=== PATIENT | male | born 1985 | race Caucasian/White ===

== ENCOUNTER 2020-02-06 18:09 | Emergency (ER) | payer OTHER, SELFPAY ==
[2020-02-06] VITALS (14 sets, daily range): BP systolic 139–159; BP diastolic 95–119; PULSE 79–106; RESP 16–28; TEMP 36.7; O2SAT 97–100
--- NOTE | 2020-02-06 18:00 | RT.EKG_ITS ---
APPROVED REPORT Exam: Resting ECG Patient Location: E HR:80 bpm ECG Measurements Heart Rate 80 AXIS NC 176 P 20 QRSd 69 QRS 24 QT 348 T 30 QTc 402 <Conclusion> Sinus rhythm...normal P axis, V-rate 60- 99. No acute ST elevation or depression.
--- NOTE | 2020-02-06 18:22 | W.ED.GENAD ---
Discharge Plan Disposition Patient Disposition: HOME Condition: Stable Discharge Details Chief Complaint: DrugWithdr Clinical Impression: Opioid withdrawal Primary Care Provider: Omega Garcia ED Provider: Kerri Smith Home Meds and New Rx's Prescriptions: New clonidine HCl 0.2 mg tablet 0.2 mg PO TID PRN (Reason: withdrawal symptoms) Qty: 10 RF: 0 Continued valacyclovir 500 mg tablet 500 mg PO BID PRNRF: 0 buprenorphine-naloxone 12-3 mg film 1 film BC Q24H Qty: 28 RF: 0 buprenorphine-naloxone 2-0.5 mg film 1 film BC DAILY Qty: 28 RF: 0 sertraline [Zoloft] 100 mg tablet 150 mg PO DAILY Qty: 135 RF: 4 Discharge Instructions Instructions: Opioid Withdrawal (ED) Additional Instructions: Call your primary care doctor tomorrow for follow-up for direction regarding management of your Suboxone. You may need to start at a lower dose of your Suboxone to not induce further withdrawal symptoms. You are given a prescription for clonidine which can help reduce withdrawal symptoms. Do not take this while you are taking the Suboxone. Follow-up with your scheduled appointment with your primary care doctor on Friday. Return to the emergency department if you develop any worsening or new concerning symptoms. Stand Alone Forms: Work Release Discharge Data Discharge Physician: Kerri Smith Medical Decision Making <Kerri Smith DO - Last Filed: 02/06/20 21:24> 1830 -- 35-year-old male with a history of IV drug use who has been on Suboxone for the past 7 years who relapsed on heroin 3 weeks ago with last dose of Suboxone at that time presents for withdrawal symptoms. Last use of heroin 2 days ago. Withdrawal symptoms worsened today after a dose of Suboxone. Hypertensive. Remainder vitals within normal limits. Patient appears restless. Screening labs obtained and unremarkable. Patient given 1 mg of Ativan without relief. 1930 -- Given another additional 1 mg of Ativan without relief. On reevaluation, patient requested morphine. Discussed with patient that this is not the standard of care for withdrawal symptoms and will give another dose of Ativan and clonidine. Patient is requesting to leave as he would rather go home today with withdrawal symptoms. We will send with 3 tabs of clonidine as well as prescription. He has an appointment with his primary care doctor on Friday. He is advised to discuss with his primary care doctor tomorrow regarding how to safely restart Suboxone to prevent further withdrawal symptoms. It was discussed that he likely needs to start on a lower dose to prevent worsening withdrawal symptoms. Medical Records Medical records reviewed: Yes I reviewed the patient's medical records. <René Inman, DO - Last Filed: 02/06/20 22:27> After the patient was discharged the mother did contact the emergency department noted that patient was still fairly jittery. She asked if he could take any additional clonidine and at this time the recommendation is that he is taking as much as would be appropriate currently. I did offer that the patient and mother be contacted by assistant women's rowing coach and the mother was very agreeable to this. I have contacted assistant women's rowing coach and they will be contacting the mother shortly. We discussed the pertinent of red flags that would indicate need for immediate return. HPI <Kerri Smith, - Last Filed: 02/06/20 21:24> General Mode of arrival: ambulatory. Date/Time Provider Initiated Documentation: 02/06/20 18:18. Limitations to Documentation: no limitations. Information obtained by: patient. HPI Narrative: Pt is a 35yo M with a history of IV drug abuse, on Suboxone for the past 7 years with recent relapse on heroin who presents to the ED with a complaint of withdrawal symptoms. Patient states he started reusing heroin again 3 weeks ago and this was at the time Related Data Home Medications Medication Instructions Recorded Confirmed valacyclovir 500 mg tablet 500 mg PO BID PRN tab-cap 03/16/19 02/06/20 sertraline 100 mg tablet 150 mg PO DAILY #135 tab-cap 08/30/19 02/06/20 buprenorphine 12 mg-naloxone 3 mg 1 film BC Q24H #28 each 01/11/20 02/06/20 sublingual film buprenorphine 2 mg-naloxone 0.5 mg 1 film BC DAILY #28 each 01/11/20 02/06/20 sublingual film clonidine HCl 0.2 mg PO TID PRN #10 tab 02/06/20 Previous Rx's Medication Instructions Recorded sertraline 100 mg tablet 150 mg PO DAILY #135 tab-cap 08/30/19 buprenorphine 12 mg-naloxone 3 mg 1 film BC Q24H #28 each 01/11/20 sublingual film buprenorphine 2 mg-naloxone 0.5 mg 1 film BC DAILY #28 each 01/11/20 sublingual film clonidine HCl 0.2 mg PO TID PRN #10 tab 02/06/20 Allergies Allergy/AdvReac Type Severity Reaction Status Date / Time No Known Allergies Allergy Verified 09/21/19 10:50 General Stated Complaint: DrugWithdr [place]: 3 Review of Systems <Kerri Smith DO - Last Filed: 02/06/20 21:24> All systems reviewed & are unremarkable except as noted in HPI and below Constitutional Constitutional: Reports as per HPI, Denies chills and Denies fever(s) Eyes Eyes: Denies blurry vision ENT Ears, Nose, Mouth, and Throat: Denies dizziness, Denies sore throat and Denies throat swelling Cardiovascular Cardiovascular: Denies chest pain and Denies dyspnea Respiratory Respiratory: Denies cough and Denies dyspnea Gastrointestinal Gastrointestinal: Denies abdominal pain, Reports diarrhea and Denies vomiting Genitourinary Genitourinary: Denies hematuria and Denies dysuria Musculoskeletal Musculoskeletal: Denies back pain and Denies numbness Integumentary/Breasts Skin/Breast: Denies lesions and Denies rash Neurologic Neurologic: Denies dizziness, Denies localized weakness, Denies numbness and Reports restless legs Allergic/Immunologic Allergic/Immunologic: Denies throat swelling PFSH <Kerri Smith DO - Last Filed: 02/06/20 21:24> Medical History (Updated 02/06/20 @ 19:46 by Kerri Smith DO) Back muscle spasm (Acute) IV drug abuse (Acute) Low back pain (Acute) Family History Mother Alcohol abuse Father Alcohol abuse Essential hypertension Depression Sister Asthma Brother No problems noted. Grandfather Hyperlipidemia Neoplasm Social History Smoking/Tobacco Use Status: Current every day Tobacco Type: cigarettes Tobacco: How many years used: 15 Alcohol Intake: current Alcohol Intake frequency: a few times a week Alcohol type: beer Drug use: Occasionally Substance use type: heroin Details: 5 bags of heroin today @ 1630 Do you feel safe in your relationship?: Yes Exam <Kerri Smith DO - Last Filed: 02/06/20 21:24> Const General: cooperative and other (restless) Orientation: alert, awake and oriented x3 HENMT Head: normal to inspection Face and sinus: normal facial exam Eyes General: appearance normal, both eyes and all related structures EOM: EOM intact bilaterally Neck Neck: normal visual inspection and No submandibular swelling Lymphatic: no lymphadenopathy noted Chest Chest: normal inspection of the chest and no tenderness Resp Effort & Inspection: normal respiratory effort and able to speak in complete sentences Auscultation: clear to auscultation bilaterally Cardio Rate: regular rate Rhythm: regular rhythm GI Inspection: normal to inspection Palpation: soft, not firm, not rigid and nontender Auscultation: normal bowel sounds Skin General skin exam: no rashes or lesions noted Neuro General: patient alert, patient awake and patient oriented x3 Cognition: normal cognition Speech: speech normal Motor: muscle tone normal throughout Sensory Exam: no sensory deficits noted Extrem General: normal to inspection, full ROM, capillary refill normal, no calf tenderness bilaterally and no edema Psych Appearance: grossly normal Mental Status: mental status grossly normal Speech and Movement: speech and movement normal Affect: normal affect Course <Kerri Smith, DO - Last Filed: 02/06/20 21:24> Vital Signs Vital signs: Vital Signs Temperature 98.1 F 02/06/20 18:13 Pulse 86 02/06/20 18:13 Respiratory Rate 18 02/06/20 18:13 Blood Pressure 159/103 H 02/06/20 18:13 Pulse Oximetry 100 02/06/20 18:13 Temperature 98.1 F 02/06/20 18:13 Temperature Source Skin 02/06/20 18:13 Pulse 86 02/06/20 18:13 Respiratory Rate 18 02/06/20 18:13 Blood Pressure 159/103 H 02/06/20 18:13 Blood Pressure Position Supine 02/06/20 18:13 Pulse Oximetry 100 02/06/20 18:13 Oxygen Delivery Method Room Air 02/06/20 18:13 Oxygen Flow Rate 0 02/06/20 18:13 Pain Level 6 02/06/20 18:13
[2020-02-06] MEDS: Normal Saline 1,000 ML 1000 ML IV (18:36)
[2020-02-06] MEDS: Normal Saline Flush 10 ML SYR IVP ×2 (18:36→19:53)
[2020-02-06 18:50] LABS: ALT 70 U/L (16-63); AST 44 U/L (15-37); Abs Immature Grans 0.01 k/cumm (0.0-0.09); Absolute Basophil Count 0.01 k/cumm (0.0-0.2); Absolute Eosinophil Count 0.05 k/cumm (0.0-0.7); Absolute Lymphocyte Count 1.25 k/cumm (1.2-3.4); Absolute Monocyte Count 0.42 k/cumm (0.11-0.7); Absolute Neutrophil Count 6.26 k/cumm (1.2-6.7); Albumin 4.3 g/dL (3.4-5.0); Alkaline Phosphatase 90 U/L (46-116); Anion Gap 10.6 mmol/L (3-11); BUN 11 mg/dL (7-18); Basophils % 0.1; Bilirubin, Total 0.5 mg/dL (0.2-1.0); CO2 26.4 mmol/L (21.0-32.0); CREATININE 1.01 mg/dL (0.70-1.30); Calcium 9.5 mg/dL (8.5-10.1); Chloride 102 mmol/L (98-107); Eosinophils % 0.6; Glucose 110 mg/dL (74-106); HCT 44.1 % (40.0-50.0); HGB 15.9 g/dL (13.5-17.5); Immature Grans % 0.1 %; Lymphocytes % 15.6; Magnesium 2.1 mg/dL (1.8-2.4); Mean Corp. HGB Concentration 36.1 g/dL (32.0-36.0); Mean Corpuscular Hemoglobin 30.3 pg (27.0-33.0); Mean Platelet Volume 10.1 fL (8.0-11.0); Monocytes % 5.3; Neutrophils % 78.3; Platelet Count 235 x1000/uL (130-400); RBC 5.25 m/cumm (4.50-6.00); Sodium 139 mmol/L (136-145); Total Protein 8.1 g/dL (6.4-8.2)
[2020-02-06 18:51] LABS: Troponin I < 0.05 ng/mL (<0.06)
[2020-02-06] MEDS: LORazepam 2 MG/ML VIAL 1 MG IVP ×3 (18:51→19:54)
[2020-02-06] MEDS: cloNIDine 0.1 MG TAB 0.2 MG PO (19:54)
[2020-02-06 19:59] LABS: *AMPHETAMINES SCREEN URINE Negative (Negative); *BARBITURATES SCREEN URINE Negative (Negative); *BENZODIAZEPINES SCREEN URINE Negative (Negative); Cannabinoids THC Negative (Negative); Cocaine Screen,Urine Negative (Negative); METHADONE URINE SCREEN Negative (Negative); OPIATES URINE SCREEN POSITIVE (Negative)
[2020-02-06 20:01] LABS: Tricyclic Antidepressants Negative (Negative)
[2020-02-06] MEDS: cloNIDine 0.1 MG TAB 0.6 MG PO (20:25)
== END 2020-02-06 20:22 | disposition home or self-care (01) ==
PROVIDERS: Emergency Provider Physician Assistant; PCP Family Medicine
DX: F11.23 Opioid dependence with withdrawal (principal); R45.1 Restlessness and agitation; R03.0 Elevated blood-pressure reading, without diagnosis of hypertension
CPT/HCPCS: 36415; 80053; 80307; 93005; 96361; 96374; 96376; 99284; 83735; 84484; 85025; 93010; 99285; J2060

== ENCOUNTER 2021-01-14 11:38 | Emergency (ER) | payer SELFPAY ==
[2021-01-14 11:46] VITALS: BP 145/83; PULSE 83; RESP 18; TEMP 36; O2SAT 96
--- NOTE | 2021-01-14 11:52 | ED.GENADUL_ITS ---
Discharge Plan Disposition Patient Disposition: HOME Condition: Improving Discharge Details Clinical Impression: Cellulitis of shaft of penis Primary Care Provider: Didier Garcia ED Provider: Rigoberto Eric Home Meds and New Rx's Prescriptions: New doxycycline hyclate 100 mg capsule 100 mg PO BID 10 Days Qty: 20 RF: 0 Continued valacyclovir 500 mg tablet 500 mg PO BID PRNRF: 0 buprenorphine-naloxone 12-3 mg film 1 film BC Q24H Qty: 28 RF: 0 buprenorphine-naloxone 8-2 mg film 1 film SL DAILY Qty: 28 RF: 0 sertraline [Zoloft] 100 mg tablet 150 mg PO DAILY Qty: 135 RF: 4 Discharge Instructions Instructions: Cellulitis (ED) Additional Instructions: Please take the doxycycline as prescribed for its entire course. This may make you sensitive to the sun. Continue your routine medications. Return to the emergency department for any acute concerns. Medical Decision Making 36-year-old male who is sexually active, last sexual contact 3 weeks ago. Yesterday noticed erythema at the base of his penis. No sores or lesions, normal urination, no systemic signs or symptoms of illness. Vital signs are unremarkable. His exam does reveal discrete erythema at the base of the penile meatus. Differential diagnosis would include balanitis due to yeast infection although I feel his reported sexual encounter is too distant for this to be most likely. Must consider GC or chlamydia, as well as simple cellulitis. A urine was sent for GC and chlamydia. He was empirically treated with 250 mg of ceftriaxone IM and I will place him on 10 days of doxycycline. He understands return precautions to the ER and is stable for discharge to home. HPI General Mode of arrival: ambulatory . Date/Time Provider Initiated Documentation: 01/14/21 11:46 . Limitations to Documentation: no limitations . Information obtained by: patient . History of Present Illness 36 year old M presents to the emergency department with the chief complaint of Redness at head of penis, described as mild, Quality is described as constant, and is localized to the genitals. Patient started experiencing this day(s) and it has been constant. No relieving factors improve symptom(s), No exacerbating factors reported . Patient notes denies fever/chills. Patient did receive the following treatments prior to arrival, none Related Data Home Medications Medication Instructions Recorded Confirmed valacyclovir 500 mg tablet 500 mg PO BID PRN tab-cap 03/16/19 01/14/21 sertraline 100 mg tablet 150 mg PO DAILY #135 tab-cap 08/30/19 01/14/21 buprenorphine 12 mg-naloxone 3 mg 1 film BC Q24H #28 ea 01/09/21 01/14/21 sublingual film buprenorphine 8 mg-naloxone 2 mg 1 film SL DAILY #28 ea 01/09/21 01/14/21 sublingual film doxycycline hyclate 100 mg PO BID 10 Days #20 cap 01/14/21 Previous Rx's Medication Instructions Recorded sertraline 100 mg tablet 150 mg PO DAILY #135 tab-cap 08/30/19 buprenorphine 12 mg-naloxone 3 mg 1 film BC Q24H #28 ea 01/09/21 sublingual film buprenorphine 8 mg-naloxone 2 mg 1 film SL DAILY #28 ea 01/09/21 sublingual film doxycycline hyclate 100 mg PO BID 10 Days #20 cap 01/14/21 Allergies Allergy/AdvReac Type Severity Reaction Status Date / Time No Known Allergies Allergy Verified 01/14/21 11:49 General Stated Complaint: Urinary [place]: 4 Review of Systems Narrative: No fever, chills, normal urine PFSH Medical History Back muscle spasm IV drug abuse Low back pain Family History Mother Alcohol abuse Father Alcohol abuse Essential hypertension Depression Sister Asthma Brother No problems noted. Grandfather Hyperlipidemia Neoplasm Social History Smoking/Tobacco Use Status: Current every day Tobacco Type: cigarettes Tobacco: How many years used: 15 Smoking risk assessment performed?: Yes Alcohol Intake: current Alcohol Intake frequency: a few times a week Alcohol type: beer Drug use: Occasionally Substance use type: marijuana and heroin Details: 5 bags of heroin today @ 1630 Do you feel safe at home: Yes Do you feel safe in your relationship?: Yes Exam Narrative Exam Narrative: GEN: awake, alert, oriented 3. Pleasant, well groomed, interactive. HEAD: Normocephalic, atraumatic ENT: Mucous membranes moist, External ear exam unremarkable EYES: PERRL, EOMI NECK: Full ROM, no ARNOLD, no menigismus CHEST/RESP: Nontender, no respiratory distress ABDOMEN: Soft, nontender, no mass. +Bowel sounds : Circumcised, discrete erythema at the base of the penile meatus. No lesions, distended testes bilaterally. EXT: Full ROM, no edema, no rash Neuro: Grossly normal neurologic exam, conversant, interactive. Psych: Speech fluent, thoughts congruent, affect normal Course Vital Signs Vital signs: Vital Signs Temperature 36 C L 01/14/21 11:46 Pulse 83 01/14/21 11:46 Respiratory Rate 18 01/14/21 11:46 Blood Pressure 145/83 H 01/14/21 11:46 Pulse Oximetry 96 01/14/21 11:46 Temperature 36 C L 01/14/21 11:46 Temperature Source Temporal Artery Scan 01/14/21 11:46 Pulse 83 01/14/21 11:46 Respiratory Rate 18 01/14/21 11:46 Respiratory Effort Non-Labored 01/14/21 11:50 Blood Pressure 145/83 H 01/14/21 11:46 Blood Pressure Position Sitting 01/14/21 11:46 Pulse Oximetry 96 01/14/21 11:46 Oxygen Delivery Method Room Air 01/14/21 11:46 Oxygen Flow Rate 0 01/14/21 11:46 Pain Level 2 01/14/21 11:46
[2021-01-14] MEDS: cefTRIAXone 250 MG VIAL IM (12:18)
[2021-01-17 16:30] LABS: Chlamydia Result Negative (Negative); GC Result Negative (Negative)
== END 2021-01-14 12:50 | disposition home or self-care (01) ==
LOC: ER 12:16
PROVIDERS: Emergency Provider Emergency Medicine; PCP Family Medicine
DX: N48.22 Cellulitis of corpus cavernosum and penis (principal)
CPT/HCPCS: 87491; 87591; 96372; 99284; 99283; J0696

== ENCOUNTER 2021-02-21 23:14 | Emergency (ER) | payer SELFPAY ==
[2021-02-21 23:26] VITALS: BP 180/103; PULSE 105; RESP 18; TEMP 36.9; O2SAT 95
--- NOTE | 2021-02-21 23:26 | W.ED.GENAD ---
Discharge Plan Disposition Patient Disposition: HOME Condition: Stable Discharge Details Clinical Impression: Allergic dermatitis due to poison ni Primary Care Provider: Didier Garcia ED Provider: Kenna Bella Home Meds and New Rx's Prescriptions: New prednisone 10 mg tablet See Rx Instructions .ROUTE .COMPLEX Qty: 31 RF: 0 Continued buprenorphine-naloxone 12-3 mg film 1 film BC Q24H Qty: 28 RF: 0 buprenorphine-naloxone 8-2 mg film 1 film SL DAILY Qty: 28 RF: 0 sertraline [Zoloft] 100 mg tablet 150 mg PO DAILY Qty: 135 RF: 4 Discharge Instructions Instructions: Prednisone (By mouth), Poison Ni (ED) Additional Instructions: Please keep area clean as possible. You may continue with the calamine lotion help with itch. Please take the steroids as prescribed. You are given your dose on here tonight, next dose will be due tomorrow. If you develop fever/chills, worsening rash or other new/worsening symptom please seek care urgently once again. Otherwise, please follow-up with primary care in the next 1 to 2 weeks for reevaluation. Referrals: Didier Garcia [Primary Care Provider] - Discharge Data Discharge Date/Time-TO BE ENTERED AT DEPARTURE: 02/21/21 23:40 Medical Decision Making Patient pleasant 36-year-old gentleman presenting today with chief complaint of poison ni to bilateral lower extremities. Reports he was exposed proximally 4 to 5 days ago. Since then, spreading of the rash. Reports that this is similar to when he has had poison ni exposure historically. He denies any in his groin, abdomen, chest or head. States he did initially have a small patch in the left upper extremity but this is mainly resolved. Describes a very itchy. Denies any fevers or chills. Has been using calamine lotion with minimal success. On exam, patient appears nontoxic. Vital signs are stable. He has scattered circular areas in various stages of healing. Some of these are more purpuric erythematous areas where others appear more classic vesicles. He reports that all of these started as a vesicle that weeks and then turns into more purplish hue. History exam is most consistent with poison ni. Plan to treat as the patient has had progression of symptoms covering a significant portion of bilateral lower extremities, with steroids. He states that he responded well to sort steroids historically. We discussed the side effects of this medication. Will give first dose here iand send rest of his prescription to the pharmacy. Return precautions were discussed. He will otherwise follow-up with primary care in the next 1 to 2 weeks for reevaluation. All questions and concerns were addressed and he is in agreement this plan. Rechecked BP, was initially taken when he was talking with his hands. 136/87, HR 101. HPI General Mode of arrival: ambulatory. Date/Time Provider Initiated Documentation: 02/21/21 23:21. Limitations to Documentation: no limitations. Information obtained by: patient and RN/MD. History of Present Illness 36 year old M presents to the emergency department with the chief complaint of poison ni to bilateral lower extremities, described as mild and similar to prior episodes, with intensity rated at 3. Quality is described as other (itching), and is localized to the left, right and lower extremity. Patient reports no radiation. Patient started experiencing this day(s) and it has been constant (progressively spreading). No relieving factors improve symptom(s), No exacerbating factors reported . Patient notes no other symptoms.; denies chest pain, cough, diaphoresis, fever/chills, malaise, shortness of breath and weakness. Patient did receive the following treatments prior to arrival, other (calamine lotion) Related Data Home Medications Medication Instructions Recorded Confirmed sertraline 100 mg tablet 150 mg PO DAILY #135 tab-cap 02/02/21 02/21/21 buprenorphine 12 mg-naloxone 3 mg 1 film BC Q24H #28 ea 02/06/21 02/21/21 sublingual film buprenorphine 8 mg-naloxone 2 mg 1 film SL DAILY #28 ea 02/06/21 02/21/21 sublingual film prednisone See Rx Instructions .ROUTE 02/21/21 .COMPLEX #31 tab Previous Rx's Medication Instructions Recorded sertraline 100 mg tablet 150 mg PO DAILY #135 tab-cap 02/02/21 buprenorphine 12 mg-naloxone 3 mg 1 film BC Q24H #28 ea 02/06/21 sublingual film buprenorphine 8 mg-naloxone 2 mg 1 film SL DAILY #28 ea 02/06/21 sublingual film prednisone See Rx Instructions .ROUTE 02/21/21 .COMPLEX #31 tab Allergies Allergy/AdvReac Type Severity Reaction Status Date / Time No Known Allergies Allergy Verified 02/06/21 10:34 General [place]: 4 Review of Systems Constitutional Constitutional: Reports as per HPI, Denies chills and Denies fever(s) Musculoskeletal Musculoskeletal: Reports as per HPI Integumentary/Breasts Skin/Breast: Reports as per HPI Neurologic Neurologic: Reports as per HPI, Denies sensory deficit and Denies paresthesias [facility] Medical History Back muscle spasm IV drug abuse Low back pain Family History Mother Alcohol abuse Father Alcohol abuse Essential hypertension Depression Sister Asthma Brother No problems noted. Grandfather Hyperlipidemia Neoplasm Social History Smoking/Tobacco Use Status: Current every day Tobacco Type: cigarettes Tobacco: How many years used: 15 Smoking risk assessment performed?: Yes Alcohol Intake: current Alcohol Intake frequency: a few times a week Alcohol type: beer Drug use: Occasionally Substance use type: marijuana and heroin Do you feel safe at home: Yes Do you feel safe in your relationship?: Yes Exam Const General: cooperative, healthy appearing, comfortable, no acute distress and well developed Nutritional Appearance: average body habitus and well nourished Orientation: alert and awake Resp Effort & Inspection: normal respiratory effort, able to speak in complete sentences and no respiratory distress Cardio Rate: regular rate Rhythm: regular rhythm Skin Rashes: rashes noted Full body images: 1. Dense region of erythematous rash. centrally excoriated and dry. Spreading from this area is circular dry lesions consistent with hx of poison ni. No pain with palpation. 2+ distal pulses, no edema. 2. Scattered areas in various stages. Some are blistered with serosang fluid. Other areas are dry and excoriated. Exam is not consistent with cellulitis or infection. Again, the scattered areas are consistent with hx of poison ni. Neuro General: patient alert and patient awake Cognition: normal cognition Speech: speech normal Gait: normal gait Sensory Exam: no sensory deficits noted Extrem General: abnormal to inspection (rash as above) Psych Appearance: grossly normal and well kempt Mental Status: mental status grossly normal Speech and Movement: speech and movement normal
[2021-02-21 23:35] VITALS: BP 136/87
[2021-02-21] MEDS: predniSONE 20 MG TAB 40 MG PO (23:35)
== END 2021-02-21 23:40 | disposition home or self-care (01) ==
PROVIDERS: Emergency Provider Physician Assistant; PCP Family Medicine
DX: L23.7 Allergic contact dermatitis due to plants, except food (principal)
CPT/HCPCS: 99283; J7512

== ENCOUNTER 2021-05-27 12:45 | Emergency (ER) | payer OTHER, SELFPAY ==
--- NOTE | 2021-05-27 12:48 | W.ED.GENAD ---
Discharge Plan Disposition Patient Disposition: HOME Condition: Stable Discharge Details Clinical Impression: Leg pain Primary Care Provider: Didier Garcia ED Provider: Roberto Collins Home Meds and New Rx's Prescriptions: New sulfamethoxazole-trimethoprim [Bactrim DS] 800-160 mg tablet 1 tab PO BID Qty: 20 RF: 0 Continued methadone 40 mg Tablet,Soluble 40 mg PO DAILY RF: 0 Discharge Instructions Instructions: Leg Pain (ED) Additional Instructions: Bactrim as directed. Rest, elevate, cool and/or warm compresses every 2 hours for 20 minutes. Please take your methadone as directed and stop using illicit drugs. Please follow the instructions given to you by the power and recovery superintendent. I have set you up for an ultrasound tomorrow morning to rule out DVT and have given you a single dose of Lovenox now. Please contact the radiology department at 7:30 AM to set up your appointment, after the appointment you will signed back into the ER for result and treatment if indicated. Please watch for new or worsening symptoms and return to the ER for any concerns. Otherwise I recommend contacting your primary care provider to discuss outpatient reevaluation Discharge Data Discharge Date/Time-TO BE ENTERED AT DEPARTURE: 05/27/21 14:51 Medical Decision Making 36-year-old male presents concerned for potential DVT of left lower extremity. [facility] and is typically on methadone, did not obtain a dose today, did use IV narcotics today. Denies fever, chest pain, shortness of breath, history of DVT or PE. Clinically he appears well, nontoxic, no respiratory distress, no evidence of sepsis. Will obtain CBC, CMP and coags. Concern for cellulitis versus DVT. Unfortunately it is the weekend, I cannot obtain ultrasound this evening but can set him up for 1 tomorrow morning Laboratory values are unremarkable for leukocytosis. Coags PT is 11.6 INR 1.2, APTT 30.1 Discussed work-up with patient. Will give a single dose of p.o. Bactrim now and set the patient up for ultrasound tomorrow morning. After discussing risks versus benefits, will provide a single dose of 1 mg/kg of Lovenox for potential DVT Given his recent relapse, we did have the power and recovery superintendent come talk with the patient as well Standard discharge and return precautions provided. Patient has no additional questions or concerns. This documentation was generated using Dragon dictation system, please disregard any oddities of phrase or misspellings. Medical Records Medical records reviewed: Yes I reviewed the patient's medical records. Lab Data Lab results reviewed: Yes I reviewed the patient's lab results. Labs: Laboratory Tests Range/Units 05/27/21 05/27/21 05/27/21 13:20 13:20 13:20 WBC (4.4-10.8) 10^3/uL 6.83 RBC (4.36-5.78) 10^6/uL 3.97 L Hgb (13.5-17.5) g/dL 11.4 L Hct (40.0-50.0) % 34.3 L MCV (80-95) fL 86.4 MCH (27.0-33.0) pg 28.7 MCHC (32.0-36.0) % 33.2 RDW (11.8-14.1) % 13.0 Plt Count (130-400) 10^3/uL 259 MPV (8.0-11.0) fL 10.0 Immature Gran % 0.3 Neutrophils % 67.0 Lymphocytes % 22.3 Monocytes % 8.1 Eosinophils % 1.9 Basophils % 0.4 Nucleated RBC % % 0 Absolute Neutrophils (1.2-6.7) 10^3/uL 4.58 Absolute Lymphocytes (1.2-3.4) 10^3/uL 1.52 Absolute Monocytes (0.1-0.8) 10^3/uL 0.55 Absolute Eosinophils (0.0-0.7) 10^3/uL 0.13 Absolute Basophils (0.0-0.2) 10^3/uL 0.03 PT (9.3-11.0) sec 11.6 H INR (0.9-1.1) 1.2 H APTT (21.0-27.5) sec 30.1 H Sodium (136-145) mmol/L 142 Potassium (3.5-5.1) mmol/L 4.2 Chloride (98-107) mmol/L 104 Carbon Dioxide (21.0-32.0) mmol/L 34.2 H Anion Gap (3-11) mmol/L 3.8 BUN (7-18) mg/dL 11 Creatinine (0.70-1.30) mg/dL 0.9 Estimated GFR/1.73 m2 (mL/min/1.73m2) >= 60.00 Glucose (74-106) mg/dL 98 Calcium (8.5-10.1) mg/dL 8.6 Total Bilirubin (0.2-1.0) mg/dL 0.6 AST (15-37) U/L 13 L ALT (16-63) U/L 16 Alkaline Phosphatase (46-116) U/L 85 Total Protein (6.4-8.2) g/dL 7.1 Albumin (3.4-5.0) g/dL 3.3 L HPI General Mode of arrival: ambulatory. Date/Time Provider Initiated Documentation: 05/27/21 12:48. Limitations to Documentation: no limitations. Information obtained by: patient. HPI Narrative: This is a 36-year-old male, past medical history of IV drug use, last use over the past 24 hours as well as cocaine, presenting to the ER today complaining of left lower extremity pain and swelling, no injury, concern for potential DVT. He reports he notices symptoms over the past 48 hours or so. Denies fever, history of DVT or PE, chest pain or shortness of breath. Has not taken any medications for his symptoms. Pain is mild at rest, but worse with movement or ambulation. Related Data Home Medications Medication Instructions Recorded Confirmed methadone 40 mg PO DAILY 05/27/21 05/27/21 sulfamethoxazole-trimethoprim 1 tab PO BID #20 tab 05/27/21 [Bactrim DS] Previous Rx's Medication Instructions Recorded sulfamethoxazole-trimethoprim 1 tab PO BID #20 tab 05/27/21 [Bactrim DS] Allergies Allergy/AdvReac Type Severity Reaction Status Date / Time No Known Allergies Allergy Verified 05/27/21 12:52 General [place]: 5 Review of Systems Constitutional Constitutional: Denies fever(s) Cardiovascular Cardiovascular: Denies chest pain and Denies dyspnea Respiratory Respiratory: Denies cough and Denies dyspnea Musculoskeletal Musculoskeletal: Denies arthralgias, Denies numbness, Reports stiffness and Denies tingling Integumentary/Breasts Skin/Breast: Reports erythema Neurologic Neurologic: Denies numbness and Denies tingling [facility] Medical History Back muscle spasm IV drug abuse Low back pain Family History Mother Alcohol abuse Father Alcohol abuse Essential hypertension Depression Sister Asthma Brother No problems noted. Grandfather Hyperlipidemia Neoplasm Social History Smoking/Tobacco Use Status: Current every day Tobacco Type: cigarettes Tobacco: How many years used: 15 Smoking risk assessment performed?: Yes Alcohol Intake: current Alcohol Intake frequency: a few times a week Alcohol type: beer Drug use: Occasionally Substance use type: marijuana, crack/cocaine and heroin Do you feel safe at home: Yes Do you feel safe in your relationship?: Yes Exam Const General: cooperative, comfortable and no acute distress Orientation: alert and awake HENNE Head: normal to inspection, normocephalic and atraumatic Eyes General: appearance normal, both eyes and all related structures Conjunctivae: conjunctivae normal Neck Neck: normal visual inspection, full ROM, trachea midline and supple Resp Effort & Inspection: normal respiratory effort and able to speak in complete sentences Auscultation: clear to auscultation bilaterally Cardio Rate: regular rate Rhythm: regular rhythm Skin Lesions: no lesions Neuro General: patient alert, patient awake, patient oriented x3, moves all extremities and no focal motor deficits Cognition: normal cognition Speech: speech normal Gait: antalgic (Minimally) Sensory Exam: no sensory deficits noted Extrem General: full ROM, capillary refill normal and no calf tenderness Other: Left lower extremity mid to distal tib-fib region, dorsal aspect of the foot with mild 1+ pitting edema, warmth, erythema. Skin is intact. Normal capillary refill and dorsalis pedal pulse. There is no palpable cord. Negative Homans' sign. Psych Appearance: grossly normal Mental Status: mental status grossly normal
[2021-05-27 12:49] VITALS: BP 134/78; PULSE 68; RESP 18; TEMP 37.2; O2SAT 96
--- NOTE | 2021-05-27 13:13 | NUR.NOTE ---
Nursing Note: Request for LLE venous US faxed and received by DI for pain/swelling. Follow up ED to be done tomorrow Nov. 1. Leonie Robertson
[2021-05-27 13:36] LABS: Abs Immature Grans 0.02 10^3/uL (0.0-0.06); Absolute Basophil Count 0.03 10^3/uL (0.0-0.2); Absolute Eosinophil Count 0.13 10^3/uL (0.0-0.7); Absolute Lymphocyte Count 1.52 10^3/uL (1.2-3.4); Absolute Monocyte Count 0.55 10^3/uL (0.1-0.8); Absolute Neutrophil Count 4.58 10^3/uL (1.2-6.7); Basophils % 0.4; Eosinophils % 1.9; HCT 34.3 % (40.0-50.0); HGB 11.4 g/dL (13.5-17.5); Immature Grans % 0.3; Lymphocytes % 22.3; MCH 28.7 pg (27.0-33.0); MCHC 33.2 % (32.0-36.0); MCV 86.4 fL (80-95); Monocytes % 8.1; Nucleated RBC 0 %; Platelet Count 259 10^3/uL (130-400); RBC 3.97 10^6/uL (4.36-5.78); WBC 6.83 10^3/uL (4.4-10.8)
[2021-05-27 13:43] LABS: ALT 16 U/L (16-63); AST 13 U/L (15-37); Albumin 3.3 g/dL (3.4-5.0); Alkaline Phosphatase 85 U/L (46-116); Anion Gap 3.8 mmol/L (3-11); BUN 11 mg/dL (7-18); Bilirubin, Total 0.6 mg/dL (0.2-1.0); CO2 34.2 mmol/L (21.0-32.0); CREATININE 0.9 mg/dL (0.70-1.30); Calcium 8.6 mg/dL (8.5-10.1); Chloride 104 mmol/L (98-107); Glucose 98 mg/dL (74-106); Potassium 4.2 mmol/L (3.5-5.1); Sodium 142 mmol/L (136-145); Total Protein 7.1 g/dL (6.4-8.2)
[2021-05-27 13:52] LABS: INR 1.2 (0.9-1.1); PTT Activated 30.1 sec (21.0-27.5); Prothrombin Time 11.6 sec (9.3-11.0)
[2021-05-27] MEDS: Enoxaparin 80 MG/0.8 ML SYR SC (14:41)
[2021-05-27] MEDS: Sulfameth/Trimeth DS TAB 1 TAB PO (14:41)
== END 2021-05-27 14:51 | disposition home or self-care (01) ==
PROVIDERS: Emergency Provider Physician Assistant; PCP Family Medicine
DX: M79.89 Other specified soft tissue disorders (principal); F11.10 Opioid abuse, uncomplicated; M79.662 Pain in left lower leg
CPT/HCPCS: 36415; 80053; 96372; 99284; 85025; 85610; 85730; J1650

== ENCOUNTER 2021-05-28 11:53 | Emergency (ER) | payer OTHER, SELFPAY ==
--- NOTE | 2021-05-28 12:12 | ED.GENADUL_ITS ---
Discharge Plan Disposition Patient Disposition: HOME Condition: Stable Discharge Details Clinical Impression: Cellulitis of leg, left Primary Care Provider: Didier Garcia ED Provider: Roberto Collins Home Meds and New Rx's Prescriptions: Continued methadone 40 mg Tablet,Soluble 40 mg PO DAILY RF: 0 sulfamethoxazole-trimethoprim [Bactrim DS] 800-160 mg tablet 1 tab PO BID Qty: 20 RF: 0 Discharge Instructions Instructions: Cellulitis (ED) Additional Instructions: Ultrasound is unremarkable for DVT. Rest, elevate, warm compresses every 2 hours for 20 minutes. Bactrim as directed. Compression stockings or Abran wrap as tolerated. Please watch for new or worsening symptoms and return to the ER for any concerns. Otherwise I recommend outpatient follow-up with your primary care provider in the next 3-5 days for recheck. Medical Decision Making 36-year-old gentleman presents to the ER for ultrasound results. Seen yesterday evening by me for DVT versus cellulitis. Given a single dose of Bactrim and Lovenox in the ER except for an ultrasound this morning. Patient denies any new or worsening symptoms. Denies fever, chest pain, shortness of breath. Ultrasound per radiology is unremarkable. Patient remained afebrile, O2 sats 98% on room air. No evidence of sepsis. Patient has a prescription that he will fill after his ER visit of 10 days worth of Bactrim. Discussed conservative measures as Tylenol, Motrin, elevation, compresses, compression stockings or Abran wrap. Patient has no additional questions or concerns and is comfortable discharge at this time. Discharge and return precautions provided This documentation was generated using [employer] dictation system, please disregard any oddities of phrase or misspellings. Medical Records Medical records reviewed: Yes I reviewed the patient's medical records. Imaging Data Radiologic Study: Attestation: I personally reviewed and interpreted this imaging study as follows: Imaging: Ultrasound Radiologist's impression: EXAM US LOWER EXTREMITY VENOUS LT CLINICAL HISTORY PAIN, SWELLING TECHNIQUE Grayscale, color, and doppler imaging of the deep venous system of the [left] lower extremity was performed. COMPARISON [[facility] from 05/23/2017] FINDINGS [There is no evidence of intraluminal thrombus and there is normal compression and augmentation demonstrated within the common femoral vein, femoral vein, and popliteal vein.] [In the ipsilateral calf the interrogated veins also exhibit normal compression/ augmentation properties.] [The ipsilateral saphenofemoral junction is patent.] [] IMPRESSION 1. No evidence of DVT in the [left] lower extremity HPI General Mode of arrival: ambulatory . Date/Time Provider Initiated Documentation: 05/28/21 12:12 . Limitations to Documentation: no limitations . Information obtained by: patient . HPI Narrative: 36-year-old gentleman, history of IV drug use, presents for ultrasound results. Patient seen in the ER yesterday evening by me for potential DVT of the left lower extremity. Atraumatic pain and swelling of the left lower extremity over the past 48 hours. Set up for an ultrasound today. Given a single dose of Bactrim and Lovenox. Given a prescription for Bactrim. Patient denies fever, history of DVT or PE, chest pain, shortness of breath, right leg pain or swelling. No additional questions or concerns at this time. Related Data Home Medications Medication Instructions Recorded Confirmed methadone 40 mg PO DAILY 05/27/21 05/27/21 sulfamethoxazole-trimethoprim 1 tab PO BID #20 tab 05/27/21 [Bactrim DS] Previous Rx's Medication Instructions Recorded sulfamethoxazole-trimethoprim 1 tab PO BID #20 tab 05/27/21 [Bactrim DS] Allergies Allergy/AdvReac Type Severity Reaction Status Date / Time No Known Allergies Allergy Verified 05/27/21 12:52 General [place]: 3 Review of Systems Constitutional Constitutional: Denies fever(s) and Denies weakness Cardiovascular Cardiovascular: Denies chest pain and Denies dyspnea Respiratory Respiratory: Denies cough and Denies dyspnea Musculoskeletal Musculoskeletal: Denies arthralgias, Denies numbness, Reports stiffness and Denies tingling Integumentary/Breasts Skin/Breast: Reports erythema Neurologic Neurologic: Denies numbness, Denies tingling and Denies weakness [facility] Medical History Back muscle spasm IV drug abuse Low back pain Family History Mother Alcohol abuse Father Alcohol abuse Essential hypertension Depression Sister Asthma Brother No problems noted. Grandfather Hyperlipidemia Neoplasm Social History Smoking/Tobacco Use Status: Current every day Tobacco Type: cigarettes Tobacco: How many years used: 15 Smoking risk assessment performed?: Yes Alcohol Intake: current Alcohol Intake frequency: a few times a week Alcohol type: beer Drug use: Occasionally Substance use type: marijuana, crack/cocaine and heroin Do you feel safe at home: Yes Do you feel safe in your relationship?: Yes Exam Const General: cooperative, healthy appearing, comfortable and no acute distress Orientation: alert and awake HENMT Head: normal to inspection, normocephalic and atraumatic Eyes General: appearance normal, both eyes and all related structures Conjunctivae: conjunctivae normal Neck Neck: normal visual inspection, trachea midline and supple Resp Effort & Inspection: normal respiratory effort and able to speak in complete sentences Auscultation: clear to auscultation bilaterally Cardio Rate: regular rate Rhythm: regular rhythm Skin Lesions: no lesions Neuro General: patient alert, patient awake, moves all extremities and no focal motor deficits Cognition: normal cognition Speech: speech normal Gait: antalgic (Slightly) Motor: muscle tone normal throughout Sensory Exam: no sensory deficits noted Extrem General: full ROM and capillary refill normal Other: Left lower extremity mid to distal tib-fib region and dorsal aspect of the foot with mild swelling, 1+ pitting edema, erythema, warmth. Skin appears to be intact. No Homans' sign or palpable cord. Normal capillary refill and dorsalis pedal pulse Psych Appearance: grossly normal Mental Status: mental status grossly normal
[2021-05-28 12:15] VITALS: BP 141/78; PULSE 91; RESP 16; TEMP 36.7; O2SAT 98
== END 2021-05-28 12:36 | disposition home or self-care (01) ==
PROVIDERS: Emergency Provider Physician Assistant; PCP Family Medicine
DX: L03.116 Cellulitis of left lower limb (principal); Z71.2 Person consulting for explanation of examination or test findings

== ENCOUNTER 2021-05-29 16:04 | Outpatient (REF) | payer OTHER, SELFPAY ==
[2021-05-31 14:36] LABS: Chlamydia Result Negative (Negative); GC Result Negative (Negative)
== END 2021-05-29 16:05 | disposition home or self-care (01) ==
LOC: LBN 16:04
PROVIDERS: PCP Family Medicine; Visit Provider Family Medicine
DX: Z11.3 Encounter for screening for infections with a predominantly sexual mode of transmission (principal)
CPT/HCPCS: 87491; 87591

== ENCOUNTER 2021-09-13 16:30 | Emergency (ER) | payer MEDICAID, SELFPAY ==
[2021-09-13 16:33] VITALS: BP 135/72; PULSE 111; RESP 16; TEMP 36.4; O2SAT 98
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
--- NOTE | 2021-09-13 17:30 | DI.US_ITS ---
Exam(s) US LOWER EXTREMITY VENOUS RT EXAM: US LOWER EXTREMITY VENOUS RT CLINICAL HISTORY: pain/swelling TECHNIQUE: Right lower extremity venous ultrasound performed using grayscale, color-flow, and spectr al Doppler analysis. COMPARISON: No exams were available for comparison FINDINGS: The right common femoral, femoral and popliteal veins demonstrate normal compressibility, augmentatio n, and color Doppler. The posterior tibial veins are patent. The saphenofemoral junction is unremark able. There is no evidence of a Sam cyst. The soft tissues are unremarkable. IMPRESSION: No DVT. DATA REPOSITORY:
[2021-09-13] MEDS: Sulfameth/Trimeth DS TAB 1 TAB PO (19:04)
--- NOTE | 2021-09-13 19:20 | DI.VRAD_ITS ---
PROCEDURE INFORMATION: Exam: US Duplex Right Lower Extremity Veins, Limited Exam date and time: 09/13/2021 5:42 PM Age: 36 years old Clinical indication: Other: Right pain / swelling TECHNIQUE: Imaging protocol: Real-time Duplex ultrasound of the Right Lower Extremity with 2-D holguin scale, color Doppler flow and spectral waveform analysis with image documentation. Limited exam was focused on the right lower extremity veins. COMPARISON: No relevant prior studies available. FINDINGS: Right deep veins: Unremarkable. The common femoral, femoral, proximal profunda femoral and popliteal veins are patent without thrombus. Normal Doppler waveforms. Normal compressibility and/or augmentation response. Right superficial veins: Unremarkable. Saphenofemoral junction is patent without thrombus. Soft tissues: Unremarkable. IMPRESSION: No evidence of deep vein thrombosis. Dictated and Authenticated by: Yusuf Lloyd MD. Ordering:CALIN Mejia MD
== END 2021-09-13 19:05 | disposition home or self-care (01) ==
PROVIDERS: Emergency Provider Physician Assistant; PCP Family Medicine
DX: L03.115 Cellulitis of right lower limb (principal)
CPT/HCPCS: 99284; 93971; 99283

== ENCOUNTER 2022-01-21 21:42 | Emergency (ER) | payer MEDICAID, SELFPAY ==
[2022-01-21 21:48] VITALS: BP 177/83; PULSE 119; RESP 19; TEMP 36.7; O2SAT 97
[2022-01-21 21:52] VITALS: RESP 18
--- OUTSIDE RECORDS SUMMARY | 2022-01-21 21:52 | XMS_ITS | Encounter Summary ---
:1985 Demographics Home Phone Preferred Language Unknown Marital Status Unknown Christianity Affiliation Unknown Race Unknown Ethnic Group Unknown Author Organization [facility] Address [address] [place] [address] Care Team Providers Name Role Phone Unavailable Primary Care Provider Unavailable Encounter Details Date Type Department Care Team Description 01/15/2021 Lab Requisition [facility] Outr Resulting Lab, Pathology & Laboratory Provider [facility] [address] [place] [address] Social History Tobacco Use Types Packs/Day Years Used Date Never Assessed Sex Assigned at Date Recorded Not on file documented as of this encounter Plan of Treatment Not on filedocumented as of this encounter Procedures Procedure Name Priority Date/Time Associated Comments Diagnosis CHLAMYDIA/N. Routine 01/14/2021 12:07 Results for this GONORRHOEAE AMPLIFIED EDT proced ure are in RNA the results section. documented in this encounter Results CHLAMYDIA/N. GONORRHOEAE AMPLIFIED RNA (01/14/2021 12:07 EDT) Pathologist Sig nature Gonococcus Result Negative Negative [facility] Chlamydia Result Negative Negative [facility] Specimen Urine - Urine, Dirty Urine Performing Organization Address City/State/ZIP Code Phon e Number [facility] [address] [place] [address] SERVICES documented in this encounter Visit Diagnoses Not on filedocumented in this encounter
--- OUTSIDE RECORDS SUMMARY | 2022-01-21 21:52 | XMS_ITS | Clinical Summary ---
:1985 Demographics Home Phone Preferred Language Unknown Marital Status Unknown Sikhism Affiliation Unknown Race Unknown Ethnic Group Unknown Author Organization [facility] Address [address] [place] [address] Care Team Providers Name Role Phone Unavailable Primary Care Provider Unavailable Social History Tobacco Use Types Packs/Day Years Used Date Never Assessed Sex Assigned at Date Recorded Not on file Plan of Treatment Health Maintenance Due Date Last Done Comments Hepatitis C Screen 1985 COVID-19 Vaccine (1) 1999
--- OUTSIDE RECORDS SUMMARY | 2022-01-21 21:52 | XMS_ITS ---
:1985 Author Care Team Providers Name Role Phone DR. RENA RAYGOZA Primary Care Provider [phone] DR. RENA RAYGOZA Referring Provider [phone] [facility] Primary Care Provider [phone] DARA NGUYEN NP Sleep Medicine [facility] OTHER [phone] Allergies Code Code System Name Reaction Severity Status Onset NKDA ? Medications Name Status Start Date Stop Date ? ? fluticasone propionate 50 mcg/actuation nasal spray,suspension A ctive ? Not available INSTILL 2 SPRAYS INTO EACH NOSTRIL ONCE DAILY sertraline 100 mg tablet Active ? Not baltazar ilable 1.5 tabs daily Suboxone Active ? Not available 10mg total daily sublingual film Suboxone 2 mg-0.5 mg sublingual film Completed ? 01/29/2018 Suboxone 8 mg-2 mg sublingual film Completed ? 04/02/2018 valacyclovir 500 mg tablet Active ? Not a vailable zolpidem 5 mg tablet Active ? Not availab le take 1 PO night of sleep study may repeat x 1 PRN Problems Name Status Onset Date Source ? Anxiety Active 01/29/2018 ? Opioid Dependence Active 01/29/2018 ? Intravenous Drug User Active 01/29/2018 ? Depressive Disorder Active 01/29/2018 ? Heart Murmur Active 01/29/2018 ? Attention Deficit Hyperactivity Disorder, Predominantly Active 01/29/2018 ? 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 Mixed Sleep Apnea Active ? ? Apnea Active ? ? Elevated Liver Enzymes Level Active ? ? Procedures Date Name Performed by ? 04/02/2018 Polysomnogram [facility] [address] [place] [address] (Work Place) Results Lab Results Date Name Specimen Result Interpretation Description Value Range Status Address ? 02/02/2018 Hepatitis C Ab, ? No observation ? ? ? [facility] recorded. [facility]: [address] [place] Past Encounters None recorded. Social History Tobacco Smoking Status Current Every Day Smoker Notes: abo ut a pack daily Vaccine List None recorded. Plan of Care Reminders Provider Appointments None recorded. ? ? Lab None recorded. ? ? Referral None recorded. ? ? Procedures None recorded. ? ? Surgeries None recorded. ? ? Imaging None recorded. ? ? Vitals 12/09/2019 03:30PM Office 30 Height Weight BMI 172.72 cm 90.72 kg 30.4 kg/m2 08/27/2018 02:45PM Office 15 Height Weight BMI Blood Pressure 168.91 cm 97.3 kg 34.1 kg/m2 178/84 mm[Hg] 06/11/2018 02:45PM Office 30 Height Weight BMI Blood Pressure 168.91 cm 96.52 kg 33.8 kg/m2 130/90 mm[Hg] 04/02/2018 02:30PM Office 30 Height Weight BMI Blood Pressure 168.91 cm 95.53 kg 33.5 kg/m2 160/88 mm[Hg] 02/02/2018 08:00AM New Patient 45 Height Weight BMI Blood Pressure 168.91 cm 93.71 kg 32.8 kg/m2 130/82 mm[Hg]
--- NOTE | 2022-01-21 22:02 | ED.GENADUL_ITS ---
Discharge Plan Disposition Patient Disposition: HOME Condition: Stable Discharge Details Clinical Impression: Cellulitis of leg, left Primary Care Provider: Didier Garcia ED Provider: Kenna Bella Home Meds and New Rx's Prescriptions: New sulfamethoxazole-trimethoprim [Bactrim] 400-80 mg tablet 1 tab PO BID 5 Days Qty: 10 0RF cephalexin 500 mg tablet 500 mg PO QID 5 Days Qty: 20 0RF Discharge Instructions Instructions: Cephalexin (By mouth), Sulfamethoxazole/Trimethoprim (By mouth), Cellulitis (ED) Additional Instructions: Your history and exam are consistent with recurrent cellulitis of your left leg. Please take the 2 antibiotics as prescribed. 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 Please encourage elevation of your lower extremities. If you develop fever/chills, increased redness or other new/worsening symptoms seek care urgently once again. Otherwise, please follow-up with your primary care in 1 week for reevaluation. As we discussed, your heart rate was elevated here today but likely associated with your recent drug use. Please continue to monitor this and discuss your drug use elevated blood pressure/heart rate further with your primary care. Referrals: Didier Garcia MD [Primary Care Provider] - Medical Decision Making Patient is a pleasant 37-year-old gentleman presenting today with chief complaint of left lower extremity erythema. States that he noticed the erythema proximally 4 days ago. Has been increasing in size as well as pain scale. Denies any fevers or chills. States that this is very similar to when he has had cellulitis historically. He denies any chest pain or breath. No rash elsewhere. Patient does use crack and heroin frequently, does not inject in this area. On exam, patient appears intoxicated but is appropriate. He has erythema and warmth to the anterior medial aspect of the LLE. No calf tenderness or firmness. 2+ distal pulses, sensation intact. Full ROM, no evidence of intraarticular involvement. Patient is tachycardic, reports this is typical and that he used crack just prior to arrival. Denies SOB, CP, N/V, back pain, shoulder pain, palpitations. BP elevated which is typical, likely exacerbated by recent drug use. Patient does not appear septic. Not consistent with DVT. Patient and I discussed recurrent cellulitis. Encourage elevation. Will start on Keflex and Bactrim, first doses given for this evening. Strict return precautions discussed. Encouraged hydration. Offered support with sobriety. Patient states that he has been involved with [id number] but has been, too lazy recently. Declines further tools, feels that he is not ready but knows he can reach out should he change his mind. Strict return precautions discussed. Advised he f/u with PCP and have HR and BP reassessed. All o fhis questions and concerns were addressed, he is in agreement with this plan. HPI General Date/Time Provider Initiated Documentation: 01/21/22 21:46 . Limitations to Documentation: no limitations . Information obtained by: patient, RN notes reviewed and old records reviewed . History of Present Illness 37 year old M presents to the emergency department with the chief complaint of left ankle erythema, described as mild and similar to prior episodes, with intensity rated at 3. Quality is described as aching , and is localized to the left and lower extremity. Patient reports no radiation. Patient started experiencing this day(s) (4) and it has been constant. Immobilization improves symptom(s), Movement worsens symptoms . Patient notes rash (erythema); denies fever/chills, malaise and shortness of breath. Patient did receive the following treatments prior to arrival, none Related Data Home Medications Medication Instructions Recorded Confirmed cephalexin 500 mg tablet 500 mg PO QID 5 days #20 tabs 01/21/22 sulfamethoxazole 400 1 tab PO BID 5 days #10 tabs 01/21/22 mg-trimethoprim 80 mg tablet (Bactrim) Previous Rx's Medication Instructions Recorded cephalexin 500 mg tablet 500 mg PO QID 5 days #20 tabs 01/21/22 sulfamethoxazole 400 1 tab PO BID 5 days #10 tabs 01/21/22 mg-trimethoprim 80 mg tablet (Bactrim) Allergies Allergy/AdvReac Type Severity Reaction Status Date / Time No Known Allergies Allergy Verified 01/21/22 21:54 General Stated Complaint: Vascular [place]: 4 Review of Systems Constitutional Constitutional: Reports as per HPI, Denies chills and Denies fever(s) Cardiovascular Cardiovascular: Denies chest pain, Denies chest pain at rest, Denies chest pain with activity, Denies syncope, Denies lightheadedness, Denies dyspnea and Denies dyspnea on exertion Respiratory Respiratory: Denies cough, Denies dyspnea and Denies dyspnea on exertion Musculoskeletal Musculoskeletal: Reports as per HPI Integumentary/Breasts Skin/Breast: Reports as per HPI Neurologic Neurologic: Reports as per HPI, Denies syncope, Denies sensory deficit and Denies paresthesias [facility] All Active Problems (Updated 01/21/22 @ 22:10 by WILL Barton) Sleep apnea with use of continuous positive airway pressure (CPAP) (Acute ~03/2018) Leg pain (Acute) Cellulitis of leg, left (Acute) Allergic dermatitis due to poison [place] (Acute) Cellulitis of shaft of penis (Acute) Viral URI (Acute) Back muscle spasm (Acute) Low back pain (Acute) Alcohol use (Acute) Anxiety (Acute) Attention deficit hyperactivity disorder (Acute) Undiagnosed cardiac murmurs (Acute) Depressive disorder (Acute) History of intravenous drug abuse (Acute 11/28/17) Opioid dependence (Acute) Medical History IV drug abuse Family History Mother Alcohol abuse Father Alcohol abuse Essential hypertension Depression Sister Asthma Brother No problems noted. Grandfather Hyperlipidemia Neoplasm Social History Smoking/Tobacco Use Status: Current every day Tobacco Type: cigarettes Tobacco: How many years used: 15 Smoking risk assessment performed?: Yes Alcohol Intake: current Alcohol Intake frequency: 0-2 drinks per day Alcohol type: beer Drug use: Occasionally Substance use type: marijuana, crack/cocaine and heroin Do you feel safe at home: Yes Do you feel safe in your relationship?: Yes Exam Const General: cooperative, healthy appearing, comfortable, no acute distress, well developed and other (appears intoxicated but is answering appropriately) Nutritional Appearance: average body habitus and well nourished Orientation: alert and awake Resp Effort & Inspection: normal respiratory effort, able to speak in complete sentences and no respiratory distress Cardio Rate: regular rate Rhythm: regular rhythm Skin General skin exam: erythema Neuro General: patient alert and patient awake Cognition: normal cognition Speech: speech normal Gait: normal gait Sensory Exam: no sensory deficits noted Extrem Ankle/foot/toe images: 1. Area of erythema, warmth and tenderness. No posterior calf pain. 2+ distal pulses. Full, painless, ROM of ankle and toes. primarily along medial and anterior aspect. No break in the skin. Sensation intact. Calf is sot and no ntender Psych Appearance: grossly normal and disheveled Mental Status: mental status grossly normal Speech and Movement: speech and movement normal Course Vital Signs Vital signs: Vital Signs Temperature 36.7 C 01/21/22 21:48 Pulse 119 H 01/21/22 21:48 Respiratory Rate 19 01/21/22 21:48 Blood Pressure 177/83 H 01/21/22 21:48 Pulse Oximetry 97 01/21/22 21:48 Temperature 36.7 C 01/21/22 21:48 Temperature Source Tympanic 01/21/22 21:48 Pulse 119 H 01/21/22 21:48 Respiratory Rate 18 01/21/22 21:52 Respiratory Effort 01/21/22 21:52 Respiratory Depth Normal 01/21/22 21:52 Respiratory Pattern Normal 01/21/22 21:52 Blood Pressure 177/83 H 01/21/22 21:48 Blood Pressure Position Sitting 01/21/22 21:48 Pulse Oximetry 97 01/21/22 21:48 Oxygen Delivery Method Room Air 01/21/22 21:48 Oxygen Flow Rate 0 01/21/22 21:48 Pain Level 2 01/21/22 21:52 PAWSS Have you Been Recently Intoxicated or Drunk Within the Last 30 days?: No Have you Ever Experienced Previous Episodes of Alcohol Withdrawal?: No Have you ever Experienced Withdrawal Seizures?: No Have you ever Experienced Delirium Tremens(DT)s?: No Have you ever undergone Alcohol Rehabilitation Treatment (i.e, inpt ot outpatient treatment programs)?: No Have you ever Experienced Blackouts?: No Have you ever Combined Alcohol with other Downers within the last 90 days?: No Have you ever Combined Alcohol with any other Substance of Abuse during the last 90 days?: No Positive Blood Alcohol level on Presentation? [PCS.BAL]: No Evidence of Increased Autonomic Activity (i.e. HR>120, tremor, sweating, agitation, nausea)?: No Result: 0
[2022-01-21] MEDS: Acetaminophen 325 MG TAB 650 MG PO ×2 (22:20)
[2022-01-21] MEDS: Cephalexin 500 MG CAP, 4 CAPS/BTL PO (22:20)
[2022-01-21 22:21] VITALS: BP 155/85; PULSE 105; RESP 19; O2SAT 98
[2022-01-21] MEDS: Sulfameth/Trimeth DS, 2 TABS/BTL 1 TAB PO (22:21)
== END 2022-01-21 22:19 | disposition home or self-care (01) ==
PROVIDERS: Emergency Provider Physician Assistant; PCP Family Medicine
DX: L03.116 Cellulitis of left lower limb (principal)
CPT/HCPCS: 99283

== ENCOUNTER 2022-01-26 20:33 | Emergency (ER) | payer MEDICAID, SELFPAY | END 2022-01-26 20:49 | disposition LWBS | LOC: ER 21:06 | PROVIDERS: PCP Family Medicine | DX: Z53.21 Procedure and treatment not carried out due to patient leaving prior to being seen by health care provider (principal) ==

== ENCOUNTER 2022-04-02 20:17 | Emergency (ER) | payer MEDICAID, SELFPAY ==
[2022-04-02 20:40] VITALS: PULSE 91; TEMP 36.9; O2SAT 94
--- NOTE | 2022-04-02 21:24 | ED.GENADUL_ITS ---
Discharge Plan Disposition Patient Disposition: HOME Condition: Good Discharge Details Clinical Impression: Cellulitis of knee, right Primary Care Provider: Didier Garcia ED Provider: René Inman Home Meds and New Rx's Prescriptions: New clindamycin HCl [Cleocin HCl] 150 mg capsule 450 mg PO QID 7 Days Qty: 84 0RF Discharge Instructions Instructions: Cellulitis (ED) Additional Instructions: At this time you have cellulitis on your knee, thankfully there is not evidence of a septic joint. However if you notice new symptoms that we talked about, such as worsening pain and swelling and redness, fever, pain with movement in the knee, then please return here immediately for reassessment. Please take the antibiotic clindamycin as directed. Please fill the prescription has been sent to your pharmacy on file and take this as directed. Please take a yogurt with live culture or a probiotic while on the antibiotic to help prevent any diarrhea. Please continue washing your knee regularly, and applying triple antibiotic ointment. If you notice any worsening of your symptoms, or any new symptoms such as vomiting, diarrhea, fever, chills, shortness of breath, chest pain, numbness, weakness, or fainting , please return immediately to the emergency department for reevaluation. Please follow up with your primary care provider as soon as possible for reassessment and reevaluation. As always, it was a pleasure participating in your medical care today. Referrals: Didier Garcia MD [Primary Care Provider] - Medical Decision Making 37-year-old male with a past medical history of previous IV drug use, depression, who states that he currently does use a small amount, presents today with infection over the right anterior knee. The patient states that he scraped it about 1 week ago, he thought that it came to a head and poked the area with one of his needles. He states that it was a clean needle. He states that he got a fair amount of pus out of it at that time. Since then he has noticed some spreading redness. He denies any pain in the knee. He does admit to some swelling in the lower extremity after this. He denies any fever or chills. No other complaints at this time. He states that his immunizations are up-to-date. Exam demonstrates evidence of cellulitis over the right anterior knee, no fluctuance to suggest abscess. No active drainage. No calf tenderness. No tenderness with flexion or extension of the knee itself. Symptoms at this time are clinically inconsistent with septic joint, sepsis, severe infection requiring admission. Symptoms at this time are consistent with superficial cellulitis. Due to his history of IV drug use, and the risk of MRSA we will give clindamycin, will give a bottle here and sent a prescription to his pharmacy. Discussed red flags which return. I have extensively reviewed the treatment plan and discharge instructions with the patient. I have addressed all patient concerns at this time. The patient was made aware of what symptoms to monitor for that would warrant a return to the emergency department. Discussed the plan with the patient, they demonstrate verbal understanding and agreement with our assessment and plan at this time. The documentation in this chart was dictated using [employer] dictation software. Please excuse any dictation errors. HPI General Date/Time Provider Initiated Documentation: 04/02/22 20:44 . HPI Narrative: 37-year-old male with a past medical history of previous IV drug use, depression, who states that he currently does use a small amount, presents today with infection over the right anterior knee. The patient states that he scraped it about 1 week ago, he thought that it came to a head and poked the area with one of his needles. He states that it was a clean needle. He states that he got a fair amount of pus out of it at that time. Since then he has noticed some spreading redness. He denies any pain in the knee. He does admit to some swelling in the lower extremity after this. He denies any fever or chills. No other complaints at this time. He states that his immunizations are up-to-date. Related Data Home Medications Medication Instructions Recorded Confirmed clindamycin HCl 150 mg capsule 450 mg PO QID 7 days #84 caps 04/02/22 (Cleocin HCl) Previous Rx's Medication Instructions Recorded clindamycin HCl 150 mg capsule 450 mg PO QID 7 days #84 caps 04/02/22 (Cleocin HCl) Allergies Allergy/AdvReac Type Severity Reaction Status Date / Time No Known Allergies Allergy Verified 04/02/22 20:59 General Stated Complaint: Laceration [place]: 4 Review of Systems All systems reviewed & are unremarkable except as noted in HPI and below PFSH All Active Problems Cellulitis of knee, right (Acute) Sleep apnea with use of continuous positive airway pressure (CPAP) (Acute ~03/2018) Leg pain (Acute) Cellulitis of leg, left (Acute) Allergic dermatitis due to poison [place] (Acute) Cellulitis of shaft of penis (Acute) Viral URI (Acute) Back muscle spasm (Acute) Low back pain (Acute) Alcohol use (Acute) Anxiety (Acute) Attention deficit hyperactivity disorder (Acute) Undiagnosed cardiac murmurs (Acute) Depressive disorder (Acute) History of intravenous drug abuse (Acute 11/28/17) Opioid dependence (Acute) Medical History IV drug abuse Family History Mother Alcohol abuse Father Alcohol abuse Essential hypertension Depression Sister Asthma Brother No problems noted. Grandfather Hyperlipidemia Neoplasm Social History Smoking/Tobacco Use Status: Current every day Tobacco Type: cigarettes Tobacco: How many years used: 15 Smoking risk assessment performed?: Yes Alcohol Intake: current Alcohol Intake frequency: a few times a week Alcohol type: beer Drug use: Occasionally Substance use type: marijuana, crack/cocaine and heroin Details: Clinic for heroine with occassional use. Occassional use of cocaine. Do you feel safe at home: Yes Do you feel safe in your relationship?: Yes Exam Narrative Exam Narrative: 1.Const: Well-nourished, Well-developed, appearing stated age 2.Eyes: PERRL, no conjunctival injection, and symmetrical lids. 3.ENT: Atraumatic external nose and ears. Moist MM. Neck: Symmetric, trachea midline, No thyromegaly. 4.CVS: +S1/S2, No murmurs or gallops. Peripheral pulses 2+ and equal in all extremities. Brisk capillary refill in all extremities. 5.RESP: Unlabored respiratory effort. Clear to auscultation bilaterally. No wheezes rales or rhonchi 6.GI: Soft, Nontender/Nondistended, No hepatosplenomegaly. No guarding or rebound. 7.MSK: Right knee demonstrates evidence of mild cellulitis on the anterior skin just below the patella. There is a small ulcerated area that has no active drainage at this time. No calf tenderness. Flexion extension of the knee brings about no tenderness. Redness is roughly 5 cm wide by 3 cm long. No fluctuance to suggest abscess. 8.Skin: Warm, Dry. 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 Sensation grossly intact, no focal neurologic deficits. 10.Psych: (AAO) x3. Appropriate mood and affect Course Vital Signs Vital signs: Vital Signs Temperature 36.9 C 04/02/22 20:40 Pulse 91 H 04/02/22 20:40 Pulse Oximetry 94 04/02/22 20:40 Temperature 36.9 C 04/02/22 20:40 Temperature Source Tympanic 04/02/22 20:40 Pulse 91 H 04/02/22 20:40 Respiratory Effort Non-Labored 04/02/22 20:59 Pulse Oximetry 94 04/02/22 20:40 Oxygen Delivery Method Room Air 04/02/22 20:40 Oxygen Flow Rate 0 04/02/22 20:40 Pain Level 4 04/02/22 20:59 PAWSS Have you Been Recently Intoxicated or Drunk Within the Last 30 days?: No Have you Ever Experienced Previous Episodes of Alcohol Withdrawal?: No Have you ever Experienced Withdrawal Seizures?: No Have you ever Experienced Delirium Tremens(DT)s?: No Have you ever undergone Alcohol Rehabilitation Treatment (i.e, inpt ot outpatient treatment programs)?: No Have you ever Experienced Blackouts?: No Have you ever Combined Alcohol with other Downers within the last 90 days?: No Have you ever Combined Alcohol with any other Substance of Abuse during the last 90 days?: No Positive Blood Alcohol level on Presentation? [PCS.BAL]: No Evidence of Increased Autonomic Activity (i.e. HR>120, tremor, sweating, agitation, nausea)?: No Result: 0
[2022-04-02] MEDS: Clindamycin 150 MG CAP, 12 CAPS/BTL 450 MG PO (21:50)
== END 2022-04-02 21:50 | disposition home or self-care (01) ==
PROVIDERS: Emergency Provider Student in an Organized Health Care Education/Training Program; PCP Family Medicine
DX: L03.115 Cellulitis of right lower limb (principal); F17.210 Nicotine dependence, cigarettes, uncomplicated
CPT/HCPCS: 99283; 99284

== ENCOUNTER 2022-04-04 08:45 | Emergency (ER) | payer MEDICAID, SELFPAY | END 2022-04-04 09:27 | PROVIDERS: PCP Family Medicine | DX: Z53.21 Procedure and treatment not carried out due to patient leaving prior to being seen by health care provider (principal) ==

== ENCOUNTER 2022-07-13 04:08 | Emergency (ER) | payer MEDICAID, SELFPAY ==
[2022-07-13] VITALS (35 sets, daily range): BP systolic 111–133; BP diastolic 45–71; PULSE 64–79; RESP 10–17; TEMP 36.7; O2SAT 89–100
--- NOTE | 2022-07-13 04:15 | DI.RAD_ITS ---
Exam(s) XR PORTABLE CHEST AP EXAM: XR PORTABLE CHEST AP CLINICAL HISTORY: cough, shortness of breath TECHNIQUE: 2D digital imaging was performed. COMPARISON: CR CHEST 2 VIEWS PA,LAT from 05/05/2017 FINDINGS: LUNGS: Patchy bilateral infiltrates right upper lobe and near the right hilum as well as both lung ba ses. No pleural abnormality seen. HEART: Normal size. AORTA: Normal diameter. BONES: Unremarkable for age. Soft tissues: Unremarkable. IMPRESSION: Bilateral infiltrates. DATA REPOSITORY: RADIATION DOSE DELIVERED:
--- NOTE | 2022-07-13 04:15 | RT.EKG_ITS ---
APPROVED REPORT Exam: Resting ECG Reason for Exam: chest pain Patient Location: E HR:68 bpm ECG Measurements Heart Rate 68 AXIS MN 176 P 46 QRSd 82 QRS 44 QT 400 T 57 QTc 426 Conclusion Sinus rhythm...normal P axis, V-rate 60- 99
--- NOTE | 2022-07-13 04:29 | ED.GENADUL_ITS ---
Discharge Plan Disposition Patient Disposition: Home Condition: Stable Discharge Details Clinical Impression: Cough Primary Care Provider: Didier Garcia ED Provider: Garrick Johnson Home Meds and New Rx's Prescriptions: New levofloxacin 750 mg tablet 750 mg PO DAILY Qty: 5 0RF albuterol sulfate 90 mcg/actuation aerosol powdr breath activated 2 inh inhalation Q6H PRNQty: 1 0RF prednisone 20 mg tablet 60 mg PO DAILY 4 Days Qty: 12 0RF Continued methadone 10 mg tablet 90 mg PO DAILY MDD 90mg Qty: 1 0RF sertraline [Zoloft] 100 mg tablet 150 mg PO DAILY Qty: 135 4RF Rx Instructions: 150MG DAILY albuterol 90 mcg/actuation Aerosol inhalation PRN PRN Discharge Instructions Instructions: Acute Cough (ED) Additional Instructions: follow up with your primary care provider within 1 week especially if not improving if you feel more ill, have worsening trouble breathing or persistent vomiting return to the emergency department Medical Decision Making 37 yo male with hx of substance abuse, smoker, depression, who comes in with chief complaint of cough and shortness of breath for 2 weeks and when he does cough it causes right sided sharp chest pain. He denies any fevers, no chest pain unless he is coughing, no known sick contacts. HE denies any rashes, no abdominal pain or n/v. He arrives stable speaking in full sentences. He does have wheezing bilaterally in the apices and rhonchi in the lower right lung field. He has no jvd, no murmurs, no leg swelling or calf tenderness. Suspect viral uri vs pneumonia given the cough, will obtain cbc, cmp, and portable chest and treat with a duoneb and solumedrol. No tachycardia, no evidence of dvt and symptoms seem more infectious so doubt Pe at this time. Though his pain is only with coughing will obtain ecg and troponin. Xray shows opacity in the right lower lobe, Labs show mild leukocytosis otherwise no acute findings. HE feels better after the neb and no longer has wheezing, rhonchi improved. Oxygen saturation on room air 95%. He is requesting d/c and feel this is reasonable given stable vitals, will start on levofloxacin and advised to f/u with pcp, return precautions given Differential Diagnosis Differential Diagnosis: asthma, pneumonia, bronchitis Imaging Data Radiologic Study: Attestation: I personally reviewed and interpreted this imaging study as follows: Imaging: X-Ray Radiologist's impression: right lower lobe opacity Lab Data Lab results reviewed: Yes I reviewed the patient's lab results. ECG Data Attestation: I personally reviewed and interpreted this ECG (s) as follows: Prior ECG tracings: not available for review Interpretation: sinus rhythm, rate of 68, pr 176, no acute st t wave ischemic findings HPI General Mode of arrival: ambulatory . Date/Time Provider Initiated Documentation: 07/13/22 04:11 . Limitations to Documentation: no limitations . Information obtained by: patient . History of Present Illness 37 year old M presents to the emergency department with the chief complaint of cough, described as moderate, Patient started experiencing this week(s) (2) and it has been intermittent. No relieving factors improve symptom(s), No exacerbating factors reported . Patient notes denies fever/chills. Patient did receive the following treatments prior to arrival, none Related Data Home Medications Medication Instructions Recorded Confirmed methadone 10 mg tablet 90 mg PO DAILY #1 tab 04/12/22 07/13/22 sertraline 100 mg tablet (Zoloft) 150 mg PO DAILY #135 tab-caps 22 07/13/22 albuterol 90 mcg/actuation aerosol inhalation PRN PRN 07/13/22 inhaler albuterol sulfate 90 mcg/actuation 2 inh inhalation Q6H PRN #1 ea 07/13/22 breath activated powder inhaler levofloxacin 750 mg tablet 750 mg PO DAILY #5 tabs 07/13/22 prednisone 20 mg tablet 60 mg PO DAILY 4 days #12 tabs 07/13/22 Previous Rx's Medication Instructions Recorded methadone 10 mg tablet 90 mg PO DAILY #1 tab 04/12/22 sertraline 100 mg tablet (Zoloft) 150 mg PO DAILY #135 tab-caps 06/11/22 albuterol sulfate 90 mcg/actuation 2 inh inhalation Q6H PRN #1 ea 07/13/22 breath activated powder inhaler levofloxacin 750 mg tablet 750 mg PO DAILY #5 tabs 07/13/22 prednisone 20 mg tablet 60 mg PO DAILY 4 days #12 tabs 07/13/22 Allergies Allergy/AdvReac Type Severity Reaction Status Date / Time No Known Allergies Allergy Verified 07/13/22 04:28 General Stated Complaint: RespSymp [place]: 3 Review of Systems All systems reviewed & are unremarkable except as noted in HPI and below Constitutional Constitutional: Denies fever(s) and Denies weakness Gastrointestinal Gastrointestinal: Denies abdominal pain, Denies nausea and Denies vomiting Musculoskeletal Musculoskeletal: Denies joint swelling Integumentary/Breasts Skin/Breast: Denies rash Neurologic Neurologic: Denies weakness PFSH All Active Problems (Updated 07/13/22 @ 05:57 by Garrick Johnson MD) Cough (Acute) Drug abuse and dependence (Acute) Sleep apnea with use of continuous positive airway pressure (CPAP) (Acute ~03/2018) Leg pain (Acute) Cellulitis of leg, left (Acute) Allergic dermatitis due to poison [place] (Acute) Cellulitis of shaft of penis (Acute) Viral URI (Acute) Back muscle spasm (Acute) Low back pain (Acute) Alcohol use (Acute) Anxiety (Acute) Attention deficit hyperactivity disorder (Acute) Undiagnosed cardiac murmurs (Acute) Depressive disorder (Acute) History of intravenous drug abuse (Acute 11/28/17) Opioid dependence (Acute) Medical History IV drug abuse Family History Mother Alcohol abuse Father Alcohol abuse Essential hypertension Depression Sister Asthma Brother No problems noted. Grandfather Hyperlipidemia Neoplasm Social History Smoking/Tobacco Use Status: Current every day Tobacco Type: cigarettes Tobacco: How many years used: 15 Smoking risk assessment performed?: Yes Alcohol Intake: current Alcohol Intake frequency: a few times a week Alcohol type: beer Drug use: Occasionally Substance use type: marijuana, crack/cocaine and heroin Details: Clinic for heroine with occassional use. Occassional use of cocaine. Do you feel safe at home: Yes Do you feel safe in your relationship?: Yes Exam Const General: no acute distress Orientation: alert HENMT Head: normal to inspection Ears: external ears normal General nose exam: external nose normal Mouth: moist mucous membranes Eyes General: appearance normal, both eyes and all related structures Neck Neck: normal visual inspection Resp Effort & Inspection: normal respiratory effort, able to speak in complete sentences and audible wheezes Cardio Jugular venous pressure: no JVD Rate: regular rate Heart Sounds: no murmurs Skin General skin exam: no rashes or lesions noted Neuro General: patient alert and patient oriented x3 Extrem General: normal to inspection Psych Mental Status: mental status grossly normal Course Vital Signs Vital signs: Vital Signs Temperature 36.7 C 07/13/22 04:19 Pulse 79 07/13/22 04:19 Respiratory Rate 16 07/13/22 04:19 Blood Pressure 133/71 07/13/22 04:19 Pulse Oximetry 94 07/13/22 04:19 Temperature 36.7 C 07/13/22 04:19 Pulse 79 07/13/22 04:19 Respiratory Rate 16 07/13/22 04:19 Respiratory Effort 07/13/22 04:23 Blood Pressure 133/71 07/13/22 04:19 Blood Pressure Position Sitting 07/13/22 04:19 Pulse Oximetry 94 07/13/22 04:19 Oxygen Delivery Method Room Air 07/13/22 04:19 Oxygen Flow Rate 0 07/13/22 04:19 Pain Level 6 07/13/22 04:19
[2022-07-13 04:41] LABS: Abs Immature Grans 0.07 10^3/uL (0.0-0.06); Absolute Basophil Count 0.03 10^3/uL (0.0-0.2); Absolute Eosinophil Count 0.35 10^3/uL (0.0-0.7); Absolute Lymphocyte Count 1.33 10^3/uL (1.2-3.4); Absolute Monocyte Count 0.97 10^3/uL (0.1-0.8); Absolute Neutrophil Count 10.73 10^3/uL (1.2-6.7); Basophils % 0.2; Eosinophils % 2.6; HCT 35.9 % (40.0-50.0); HGB 11.8 g/dL (13.5-17.5); Immature Grans % 0.5; Lymphocytes % 9.9; MCH 28.6 pg (27.0-33.0); MCHC 32.9 % (32.0-36.0); MCV 87 fL (80-95); MPV 9.7 fL (8.0-11.0); Monocytes % 7.2; Neutrophils % 79.6; Platelet Count 446 10^3/uL (130-400); RBC 4.12 10^6/uL (4.36-5.78); RDW 12.4 % (11.8-14.1); RDW-SD 39.8 fL; WBC 13.48 10^3/uL (4.4-10.8)
[2022-07-13 04:57] LABS: ALT 76 U/L (16-63); AST 65 U/L (15-37); Albumin 2.9 g/dL (3.4-5.0); Alkaline Phosphatase 84 U/L (46-116); BUN 15 mg/dL (7-18); Bilirubin, Total 0.5 mg/dL (0.2-1.0); CREATININE 0.8 mg/dL (0.70-1.30); Calcium 8.7 mg/dL (8.5-10.1); Chloride 100 mmol/L (98-107); Estimated GFR 118.36 (mL/min/1.73m2); Glucose 106 mg/dL (74-106); Magnesium 2.2 mg/dL (1.8-2.4); Potassium 3.5 mmol/L (3.5-5.1); Sodium 139 mmol/L (136-145); Total Protein 7.4 g/dL (6.4-8.2)
[2022-07-13 05:02] LABS: Troponin I < 50 ng/L (<or=60)
[2022-07-13] MEDS: Albuterol/Ipratropium 3 ML UPD VIAL UPD (05:11)
[2022-07-13] MEDS: methylPREDNISolone SUCC 125 MG VIAL IVP (05:12)
[2022-07-13 05:16] LABS: COVID-19 PCR Negative (Negative); Influenza A PCR Negative (Negative); Influenza B PCR Negative (Negative); RSV PCR Negative (Negative)
[2022-07-13 05:19] LABS: Source Nasopharynx
--- NOTE | 2022-07-13 05:52 | DI.VRAD_ITS ---
PROCEDURE INFORMATION: Exam: XR Chest Exam date and time: 07/13/2022 4:37 AM Age: 37 years old Clinical indication: Cough and shortness of breath; Additional info: Cough, shortness of breath TECHNIQUE: Imaging protocol: Radiologic exam of the chest. Views: 1 view. COMPARISON: CR CHEST 2 VIEWS PA,LAT 05/05/2017 11:24 AM FINDINGS: Lungs: Patchy airspace opacities in the right lung, new from prior exam. Pleural spaces: Suggestion of small right-sided pleural effusion. Heart/Mediastinum: Unremarkable. No cardiomegaly. Bones/joints: Unremarkable. IMPRESSION: Patchy airspace opacities in the right lung with small right-sided pleural effusion. This may represent pneumonia. Correlate clinically. Dictated and Authenticated by: Young Daily MD. Ordering:YAN Mccauley MD
[2022-07-13] MEDS: levoFLOXacin 500 MG, levoFLOXacin 250 MG 750 MG PO (06:05)
== END 2022-07-13 06:14 | disposition home or self-care (01) ==
PROVIDERS: Emergency Provider Emergency Medicine; PCP Family Medicine
DX: R05.9 Cough, unspecified (principal); F32.A Depression, unspecified; R91.8 Other nonspecific abnormal finding of lung field; D72.829 Elevated white blood cell count, unspecified; F17.210 Nicotine dependence, cigarettes, uncomplicated; Z20.822 Contact with and (suspected) exposure to COVID-19
CPT/HCPCS: 80053; 87637; 93005; 96374; 99284; 71045; 83735; 84484; 85025; 93010; 99285; J2930; J7620

== ENCOUNTER 2023-02-07 10:08 | Emergency (ER) | payer MEDICAID, SELFPAY ==
[2023-02-07 10:16] VITALS: BP 127/75; PULSE 70; RESP 18; TEMP 37.1; O2SAT 99
--- NOTE | 2023-02-07 10:37 | ED.GENADUL_ITS ---
Discharge Plan Disposition Patient Disposition: Home Discharge Details Clinical Impression: Cellulitis of foot, left, History of intravenous drug abuse Primary Care Provider: Didier Garcia ED Provider: Young Frances Home Meds and New Rx's Prescriptions: New cephalexin 500 mg tablet 500 mg PO QID 7 Days Qty: 28 0RF sulfamethoxazole-trimethoprim [Bactrim DS] 800-160 mg tablet 1 tab PO BID Qty: 14 0RF Continued methadone 10 mg/mL concentrate 110 mg PO DAILY MDD 110 mg Qty: 30 0RF Rx Instructions: per [facility] sertraline [Zoloft] 100 mg tablet 150 mg PO DAILY Qty: 135 4RF Rx Instructions: 150MG DAILY albuterol 90 mcg/actuation Aerosol inhalation PRN PRN albuterol sulfate 90 mcg/actuation aerosol powdr breath activated 2 inh inhalation Q6H PRNQty: 1 0RF Discontinued valacyclovir 500 mg tablet 500 mg PO BID PRN (Reason: herpes simplex) Qty: 20 2RF Discharge Instructions Instructions: Cellulitis (ED) Additional Instructions: It is very important that you continue to monitor your symptoms and return immediately to the emergency department for any significant worsening. This may include developing fevers, spreading redness, chest pain shortness of breath or other concerning findings. Otherwise take your antibiotics as prescribed and for the full 1 week course. If not fully improving follow-up with your primary care provider for reassessment Referrals: Didier Garcia MD [Primary Care Provider] - Medical Decision Making Patient presenting to the emergency department for chief complaint of left foot infection. Patient states he received a blister on his foot approximately 5 days ago from his sandal. Then starting yesterday he started noticing some redness swelling and pain. Patient does have history of IV drug use. Denies any injection into this area, denies fever chills, denies any systemic symptoms. Physical exam shows an obvious abrasion to the top/dorsal aspect of the left foot with surrounding erythema and edema. No streaking redness, normal pulses, exam is otherwise unremarkable. Given patient's history of IV drug use we will cover him with Keflex and Bactrim. At this time I do not feel that patient needs labs given no systemic symptoms and completely stable vital signs. Did give patient precautions for low threshold of returning for any worsening of symptoms. After discussion of diagnosis and plan of care patient has no further needs, questions, or concerns and states clear understanding to return to the emergency department for any worsening symptoms. This documentation was generated using [employer] dictation system, please disregard any oddities of phrase or misspellings. HPI General Mode of arrival: ambulatory . Date/Time Provider Initiated Documentation: 02/07/23 10:20 . Limitations to Documentation: no limitations . Information obtained by: patient . History of Present Illness 38 year old M presents to the emergency department with the chief complaint of Left ankle with infection, described as moderate and severe, with intensity rated at 8. Quality is described as aching, and is localized to the left and lower extremity. Patient started experiencing this day(s) (1) and it has been constant. No relieving factors improve symptom(s), No exacerbating factors reported . Patient notes no other symptoms.. Patient did receive the following treatments prior to arrival, none Related Data Home Medications Medication Instructions Recorded Confirmed sertraline 100 mg tablet (Zoloft) 150 mg PO DAILY #135 tab-caps 06/11/22 09/10/22 albuterol 90 mcg/actuation aerosol inhalation PRN PRN 07/13/22 09/10/22 inhaler albuterol sulfate 90 mcg/actuation 2 inh inhalation Q6H PRN #1 ea 07/13/22 09/10/22 breath activated powder inhaler methadone 10 mg/mL oral concentrate 110 mg (11 mL) PO DAILY #30 mL 09/10/22 09/10/22 cephalexin 500 mg tablet 500 mg PO QID 7 days #28 tabs 02/07/23 sulfamethoxazole 800 1 tab PO BID #14 tabs 02/07/23 mg-trimethoprim 160 mg tablet (Bactrim DS) Previous Rx's Medication Instructions Recorded sertraline 100 mg tablet (Zoloft) 150 mg PO DAILY #135 tab-caps 06/11/22 albuterol sulfate 90 mcg/actuation 2 inh inhalation Q6H PRN #1 ea 07/13/22 breath activated powder inhaler methadone 10 mg/mL oral concentrate 110 mg (11 mL) PO DAILY #30 mL 09/10/22 cephalexin 500 mg tablet 500 mg PO QID 7 days #28 tabs 02/07/23 sulfamethoxazole 800 1 tab PO BID #14 tabs 02/07/23 mg-trimethoprim 160 mg tablet (Bactrim DS) Allergies Allergy/AdvReac Type Severity Reaction Status Date / Time No Known Allergies Allergy Verified 09/10/22 08:06 General Stated Complaint: Cellulitis [place]: 3 Review of Systems Constitutional Constitutional: Denies chills and Denies fever(s) Cardiovascular Cardiovascular: Denies chest pain and Denies dyspnea Respiratory Respiratory: Denies cough and Denies dyspnea Gastrointestinal Gastrointestinal: Denies abdominal pain Musculoskeletal Musculoskeletal: Denies numbness and Denies tingling Integumentary/Breasts Skin/Breast: Reports as per HPI, Reports erythema, Reports skin pain and Reports skin swelling Neurologic Neurologic: Denies numbness and Denies tingling PFSH All Active Problems (Updated 02/07/23 @ 10:42 by Young Frances NP) Cellulitis of foot, left (Acute) Drug abuse and dependence (Acute) Sleep apnea with use of continuous positive airway pressure (CPAP) (Acute ~03/2018) Leg pain (Acute) Cellulitis of leg, left (Acute) Allergic dermatitis due to poison [place] (Acute) Cellulitis of shaft of penis (Acute) Viral URI (Acute) Back muscle spasm (Acute) Low back pain (Acute) Alcohol use (Acute) Anxiety (Acute) Attention deficit hyperactivity disorder (Acute) Undiagnosed cardiac murmurs (Acute) Depressive disorder (Acute) History of intravenous drug abuse (Acute 11/28/17) Opioid dependence (Acute) Medical History IV drug abuse Family History Mother Alcohol abuse Father Alcohol abuse Essential hypertension Depression Sister Asthma Brother No problems noted. Grandfather Hyperlipidemia Neoplasm Social History Smoking/Tobacco Use Status: Current every day Tobacco Type: cigarettes Tobacco: How many years used: 15 Smoking risk assessment performed?: Yes Alcohol Intake: current Alcohol Intake frequency: a few times a week Alcohol type: beer Drug use: Occasionally Substance use type: marijuana, crack/cocaine and heroin Details: Clinic for heroine with occassional use. Occassional use of cocaine. Do you feel safe at home: Yes Do you feel safe in your relationship?: Yes Exam Const General: cooperative, no acute distress and not ill appearing Orientation: alert, awake and oriented x3 HENMT Mouth: moist mucous membranes Resp Effort & Inspection: normal respiratory effort, able to speak in complete sentences and no respiratory distress Cardio Rate: regular rate Rhythm: regular rhythm Neuro General: patient alert, patient awake, patient oriented x3, moves all extremities and no focal motor deficits Sensory Exam: no sensory deficits noted Extrem General: normal exam except as noted Left lower extremity: foot Details: abnormal to inspection Details: erythematous, tenderness Location: of the dorsal foot, warmth and abrasion Course Vital Signs Vital signs: Vital Signs Temperature 37.1 C 02/07/23 10:16 Pulse 70 02/07/23 10:16 Respiratory Rate 18 02/07/23 10:16 Blood Pressure 127/75 02/07/23 10:16 Pulse Oximetry 99 02/07/23 10:16 Temperature 37.1 C 02/07/23 10:16 Temperature Source Oral 02/07/23 10:16 Pulse 70 02/07/23 10:16 Respiratory Rate 18 02/07/23 10:16 Respiratory Effort Normal, Non-Labored 02/07/23 10:24 Blood Pressure 127/75 02/07/23 10:16 Blood Pressure Position Sitting 02/07/23 10:16 Pulse Oximetry 99 02/07/23 10:16 Oxygen Delivery Method Room Air 02/07/23 10:16 Oxygen Flow Rate 0 02/07/23 10:16
[2023-02-07] MEDS: Sulfameth/Trimeth DS TAB 1 TAB PO (10:42)
[2023-02-07] MEDS: Cephalexin 500 MG CAP PO (10:43)
[2023-02-07 10:49] VITALS: BP 126/78; PULSE 80; RESP 22; TEMP 36.8; O2SAT 98
== END 2023-02-07 11:39 | disposition home or self-care (01) ==
PROVIDERS: Emergency Provider Nurse Practitioner Family; PCP Family Medicine
DX: L03.116 Cellulitis of left lower limb (principal); F19.11 Other psychoactive substance abuse, in remission
CPT/HCPCS: 99283; 99284

== ENCOUNTER 2023-03-08 16:30 | Emergency (ER) | payer MEDICAID, SELFPAY ==
[2023-03-08 16:35] VITALS: BP 141/88; PULSE 78; RESP 18; TEMP 36.8; O2SAT 98
--- NOTE | 2023-03-08 16:45 | DI.RAD_ITS ---
Exam(s) XR FOOT RT COMPLETE EXAM: XR FOOT RT COMPLETE CLINICAL HISTORY: Cellulitis, R/O gas/FB. TECHNIQUE: 2D digital imaging was performed. Three views. COMPARISON: No exams were available for comparison FINDINGS: BONES: No acute fracture is present. No bony destructive lesion is seen. JOINTS: No dislocation present. SOFT TISSUE: Marked swelling. No foreign body. No gas collection. IMPRESSION: Marked soft tissue swelling. DATA REPOSITORY: RADIATION DOSE DELIVERED:
--- NOTE | 2023-03-08 16:45 | DI.RAD_ITS ---
Exam(s) XR TIB/FIB RT EXAM: XR TIB/FIB RT CLINICAL HISTORY: R/O Gas, FB, Swelling redness. TECHNIQUE: 2D digital imaging was performed. Two views. COMPARISON: No exams were available for comparison FINDINGS: BONES: No acute fracture is present. No bony destructive lesion is seen. Visualized portion of knee a nd ankle joints are unremarkable. SOFT TISSUE: Diffuse lower extremity edema. No gas collection. No foreign body. IMPRESSION: Soft tissue swelling DATA REPOSITORY: RADIATION DOSE DELIVERED:
--- NOTE | 2023-03-08 16:56 | DI.RAD_ITS ---
Exam(s) XR ANKLE RT COMPLETE EXAM: XR ANKLE RT COMPLETE CLINICAL HISTORY: Swelling, R/O Gas FB. TECHNIQUE: 2D digital imaging was performed. Three views. COMPARISON: No exams were available for comparison FINDINGS: BONES: No acute fracture is present. No bony destructive lesion is seen. JOINTS: The ankle mortise is normally aligned. SOFT TISSUE: Diffuse soft tissue swelling. No foreign body. No gas collection. IMPRESSION: Soft tissue swelling DATA REPOSITORY: RADIATION DOSE DELIVERED:
--- NOTE | 2023-03-08 17:00 | DI.RAD_ITS ---
Exam(s) XR CHEST 2V PA LATERAL EXAM: XR CHEST 2V PA LATERAL CLINICAL HISTORY: Cough TECHNIQUE: 2D digital imaging was performed. COMPARISON: CR,XR XR PORTABLE CHEST AP from 07/13/2022 FINDINGS: HEART: Normal size. Aorta: Not dilated. PULMONARY VASCULATURE: Normal. LUNGS: Clear. PLEURAL SPACE: No pleural effusion or pneumothorax. BONE:Unremarkable for age. IMPRESSION: No acute abnormality. DATA REPOSITORY: RADIATION DOSE DELIVERED:
--- NOTE | 2023-03-08 17:00 | W.ED.GENAD ---
Discharge Plan Disposition Patient Disposition: Home Condition: Stable Discharge Details Clinical Impression: Cellulitis of right lower extremity Primary Care Provider: Didier Garcia ED Provider: Neli Castaneda Home Meds and New Rx's Prescriptions: New sulfamethoxazole-trimethoprim [Bactrim DS] 800-160 mg tablet 1 tab PO BID 10 Days Qty: 20 0RF Rx Instructions: Take 1 tablet by mouth twice daily X 10 days cephalexin 500 mg tablet 500 mg PO BID 10 Days Qty: 20 0RF Rx Instructions: Take one tablet by mouth x 10 days No Action methadone 10 mg/mL concentrate 110 mg PO DAILY MDD 110 mg Qty: 30 0RF Rx Instructions: per NUHA sertraline [Zoloft] 100 mg tablet 150 mg PO DAILY Qty: 135 4RF Rx Instructions: 150MG DAILY albuterol 90 mcg/actuation Aerosol inhalation PRN PRN albuterol sulfate 90 mcg/actuation aerosol powdr breath activated 2 inh inhalation Q6H PRNQty: 1 0RF Discharge Instructions Instructions: Cellulitis (ED) Additional Instructions: Take the antibiotic twice daily as directed. Please consider talking to [facility]. Please have your leg rechecked 3 days. Follow up with primary care provider in 3-5 days. Return to ED sooner if any worsening swelling, fever, vomiting or concerns. Increase oral fluids. Please take Tylenol or Ibuprofen with food every 4-6 hours as needed for pain and swelling. You were given an IV antibiotic here and tablets to go. Referrals: [facility] [Outside] [facility] [Outside] (Call if ready for rehab ) Didier Garcia MD [Primary Care Provider] - 3 days Discharge Data Discharge Date/Time-TO BE ENTERED AT DEPARTURE: 03/08/23 19:37 Medical Decision Making 38-year-old presents to the ER with chief complaint of R leg cellulitis, swelling and redness. Patient was seen in the ER approximately a month ago for left foot cellulitis. He reports a couple of days his right lower extremity has gotten worse. He is an IV drug user, he does deny any skin popping or IV use in his foot. He is slightly disheveled has dirty bottoms of his feet, he has 2+ pitting edema leg. He last used cocaine and heroin this morning. He reports usually shoots up the neck or his arms. He is afebrile nontachycardic upon arrival. He was recently on Bactrim and cephalexin which he reports he took a whole course of however, is questionable whether there is 1 tablet left. He does have a small scab noted to his right medial ankle. Past medical history cardiac murmurs, depression, drug use, opioid dependence, he is a smoker he reports he occasionally does smoke drugs. Work-up ordered including CBC, CMP, blood cultures, lactate, Clindamycin 600 milligrams IV x-ray extremity chest x-ray. 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 1811: Spoke with screening patient stated to her, I'm in recovery at [facility]. 1844: Call made to lab, inquiring about CMP and Magnesium result. CBC shows no leukocytosis, no left shift, lactate 0.5, x-ray shows no evidence of subcutaneous edema there is some attenuation of the soft tissues consistent with cellulitis. Please see full report. No evidence for acute abnormality noted chest radiograph per [facility]. We will plan on giving patient a repeat of BActrim and Cephalexin. CMP within normal limits, AST is slightly elevated 48. We will give Bactrim and cephalexin tablets to go, prescription written for both of them. We will give strict return instructions and follow-up care. Instructed to have leg recheck in approximately 3 days. This text was generated using [employer] dictation system, please disregard any oddities of phrase or misspellings. Medical Records Medical records reviewed: Yes I reviewed the patient's medical records. Lab Data Lab results reviewed: Yes I reviewed the patient's lab results. Labs: 03/08/23 17:20 Blood Blood Culture - Pending 03/08/23 17:20 Blood Blood Culture - Pending Laboratory Tests Range/Units 03/08/23 03/08/23 03/08/23 17:20 17:20 17:20 WBC (4.4-10.8) 10^3/uL 6.82 RBC (4.36-5.78) 10^6/uL 4.58 Hgb (13.5-17.5) g/dL 13.3 L Hct (40.0-50.0) % 39.1 L MCV (80-95) fL 85 MCH (27.0-33.0) pg 29.0 MCHC (32.0-36.0) % 34.0 RDW (11.8-14.1) % 12.6 Plt Count (130-400) 10^3/uL 238 MPV (8.0-11.0) fL 9.6 Immature Gran % 0.1 Neutrophils % 66.9 Lymphocytes % 19.5 Monocytes % 10.9 Eosinophils % 2.2 Basophils % 0.4 Nucleated RBC % (0.0-0.3) % 0.0 Absolute Neutrophils (1.2-6.7) 10^3/uL 4.56 Absolute Lymphocytes (1.2-3.4) 10^3/uL 1.33 Absolute Monocytes (0.1-0.8) 10^3/uL 0.74 Absolute Eosinophils (0.0-0.7) 10^3/uL 0.15 Absolute Basophils (0.0-0.2) 10^3/uL 0.03 VBG Lactate (0.6-1.4) mmol/L 0.5 L Sodium (136-145) mmol/L 138 Potassium (3.5-5.1) mmol/L 3.9 Chloride (98-107) mmol/L 100 Carbon Dioxide (21.0-32.0) mmol/L 33.0 H Anion Gap (3-11) mmol/L 5.0 BUN (7-18) mg/dL 9 Creatinine (0.70-1.30) mg/dL 0.8 Est GFR (CKD-EPI 2020) (mL/min/1.73m2) 117.63 Glucose (74-106) mg/dL 97 Calcium (8.5-10.1) mg/dL 8.7 Magnesium (1.8-2.4) mg/dL 2.0 Total Bilirubin (0.2-1.0) mg/dL 0.5 AST (15-37) U/L 48 H ALT (16-63) U/L 62 Alkaline Phosphatase (46-116) U/L 89 Total Protein (6.4-8.2) g/dL 7.2 Albumin (3.4-5.0) g/dL 3.6 HPI General Mode of arrival: ambulatory. Date/Time Provider Initiated Documentation: 03/08/23 16:32. Limitations to Documentation: no limitations. Information obtained by: patient, RN notes reviewed and old records reviewed. HPI Narrative: 38-year-old presents to the ER with chief complaint of R leg cellulitis, swelling and redness. Patient was seen in the ER approximately a month ago for left foot cellulitis. He reports a couple of days his right lower extremity has gotten worse. He is an IV drug user, he does deny any skin popping or IV use in his foot. He is slightly disheveled has dirty bottoms of his feet, he has 2+ pitting edema leg. He last used cocaine and heroin this morning. He reports usually shoots up the neck or his arms. He is afebrile nontachycardic upon arrival. He was recently on Bactrim and cephalexin which he reports he took a whole course of however, is questionable whether there is 1 tablet left. He does have a small scab noted to his right medial ankle. Past medical history cardiac murmurs, depression, drug use, opioid dependence, he is a smoker he reports he occasionally does smoke drugs. Related Data Home Medications Medication Instructions Recorded Confirmed sertraline 100 mg tablet (Zoloft) 150 mg PO DAILY #135 tab-caps 06/11/22 03/08/23 albuterol 90 mcg/actuation aerosol inhalation PRN PRN 07/13/22 09/10/22 inhaler albuterol sulfate 90 mcg/actuation 2 inh inhalation Q6H PRN #1 ea 07/13/22 03/08/23 breath activated powder inhaler methadone 10 mg/mL oral concentrate 110 mg (11 mL) PO DAILY #30 mL 09/10/22 03/08/23 cephalexin 500 mg tablet 500 mg PO BID Cellulitis 10 days 03/08/23 #20 tabs sulfamethoxazole 800 1 tab PO BID Cellulitis 10 days 03/08/23 mg-trimethoprim 160 mg tablet #20 tabs (Bactrim DS) Previous Rx's Medication Instructions Recorded sertraline 100 mg tablet (Zoloft) 150 mg PO DAILY #135 tab-caps 06/11/22 albuterol sulfate 90 mcg/actuation 2 inh inhalation Q6H PRN #1 ea 07/13/22 breath activated powder inhaler methadone 10 mg/mL oral concentrate 110 mg (11 mL) PO DAILY #30 mL 09/10/22 cephalexin 500 mg tablet 500 mg PO BID Cellulitis 10 days 03/08/23 #20 tabs sulfamethoxazole 800 1 tab PO BID Cellulitis 10 days 03/08/23 mg-trimethoprim 160 mg tablet #20 tabs (Bactrim DS) Allergies Allergy/AdvReac Type Severity Reaction Status Date / Time No Known Allergies Allergy Verified 03/08/23 16:39 General Stated Complaint: Cellulitis [place]: 3 Review of Systems Narrative: Patient is a 2 mm pupils bilaterally brisk, appears to be under the influence. All systems reviewed & are unremarkable except as noted in HPI and below Constitutional Constitutional: Reports as per HPI, Denies body ache(s), Denies chills and Denies fever(s) ENT Ears, Nose, Mouth, and Throat: Denies neck pain Cardiovascular Cardiovascular: Denies chest pain Respiratory Respiratory: Reports cough, Denies wheezing and Reports other (Ronchi RLL) Musculoskeletal Musculoskeletal: Denies abnormal gait, Denies back pain, Reports joint swelling and Denies neck pain Integumentary/Breasts Skin/Breast: Reports as per HPI, Reports erythema, Reports skin pain, Reports skin swelling, Reports sores and Reports wounds Neurologic Neurologic: Denies abnormal gait Allergic/Immunologic Allergic/Immunologic: Denies wheezing PFSH All Active Problems (Updated 03/08/23 @ 19:23 by Neli Castaneda NP) Cellulitis of foot, left (Acute) Cellulitis of right lower extremity (Acute) Drug abuse and dependence (Acute) Sleep apnea with use of continuous positive airway pressure (CPAP) (Acute ~03/2018) Leg pain (Acute) Cellulitis of leg, left (Acute) Allergic dermatitis due to poison [place] (Acute) Cellulitis of shaft of penis (Acute) Viral URI (Acute) Back muscle spasm (Acute) Low back pain (Acute) Alcohol use (Acute) Anxiety (Acute) Attention deficit hyperactivity disorder (Acute) Undiagnosed cardiac murmurs (Acute) Depressive disorder (Acute) History of intravenous drug abuse (Acute 11/28/17) Opioid dependence (Acute) Medical History IV drug abuse Family History Mother Alcohol abuse Father Alcohol abuse Essential hypertension Depression Sister Asthma Brother No problems noted. Grandfather Hyperlipidemia Neoplasm Social History Smoking/Tobacco Use Status: Current every day Tobacco Type: cigarettes Tobacco: How many years used: 15 Smoking risk assessment performed?: Yes Alcohol Intake: current Alcohol Intake frequency: a few times a week Alcohol type: beer Drug use: Occasionally Substance use type: marijuana, crack/cocaine and heroin Details: Clinic for heroine with occassional use. Occassional use of cocaine. Do you feel safe at home: Yes Do you feel safe in your relationship?: Yes Exam Narrative Exam Narrative: Constitutional: Alert and oriented x3. Appears stated age. Normal body habitus. Patient appears under the influence, slightly sleepy. Head: Normocephalic, no trauma. Eyes: Pupils PERRL, Red reflex noted, EOM's intact. Eyelids symmetrical without lesions, discharge, or swelling. Pupils 2+ bilaterally Chest: RRR, Normal S1, S2, distal pulses intact. Resp: Rhonchi auscultated to his right lower lobe, no wheezing, Abdomen: Soft, non-distended, Normoactive bowel sounds all 4 quads. Musculoskeletal: Normal gait, 5/5 strength to all four extremities. 2+ pitting edema noted to his right lower extremity, anterior to his medial heel Skin: He does have track barnard noted to his posterior arms, he also has old scar tissue noted to his right neck. Capillary refill less than 2 sec. small erythematous anteriorly likely right lower extremity, 2+ edema noted above, distal CMS intact, Denies ankle pain, able to move his ankle. See extremity diagram below. Neurologic: Cranial nerves II-XII intact. Alert and oriented x 3. Motor: No deficits noted. Sensory: Intact bilaterally all 4 extremities. Hematologic/Lymphatic: No ecchymosis, no lymphadenopathy. Extrem Left lower extremity: lower leg Details: erythema Location: of the distal lower leg Location: medially, laterally and anteriorly, ankle Details: abnormal to inspection and swelling and foot Details: normal capillary refill, abnormal to inspection, warmth, edema and motor-sensory exam Upper/lower leg/hip images: 1. Swelling, erythema Course Vital Signs Vital signs: Vital Signs Temperature 36.8 C 03/08/23 16:35 Pulse 78 03/08/23 16:35 Respiratory Rate 18 03/08/23 16:35 Blood Pressure 141/88 H 03/08/23 16:35 Pulse Oximetry 98 03/08/23 16:35 Temperature 36.8 C 03/08/23 16:35 Temperature Source Skin 03/08/23 16:35 Pulse 78 03/08/23 16:35 Respiratory Rate 18 03/08/23 16:35 Respiratory Effort Normal 03/08/23 16:37 Blood Pressure 141/88 H 03/08/23 16:35 Blood Pressure Position Sitting 03/08/23 16:35 Pulse Oximetry 98 03/08/23 16:35 Oxygen Delivery Method Room Air 03/08/23 16:35 Oxygen Flow Rate 0 03/08/23 16:35 Pain Level 6 03/08/23 16:35
[2023-03-08 17:31] LABS: Lactate 0.5 mmol/L (0.6-1.4)
[2023-03-08] MEDS: CLINDAMYCIN 600 MG/50 ML BAG 100 MG IVPB (17:33)
[2023-03-08 17:34] LABS: Abs Immature Grans 0.01 10^3/uL (0.0-0.06); Absolute Basophil Count 0.03 10^3/uL (0.0-0.2); Absolute Eosinophil Count 0.15 10^3/uL (0.0-0.7); Absolute Lymphocyte Count 1.33 10^3/uL (1.2-3.4); Absolute Monocyte Count 0.74 10^3/uL (0.1-0.8); Absolute Neutrophil Count 4.56 10^3/uL (1.2-6.7); Basophils % 0.4; Eosinophils % 2.2; HCT 39.1 % (40.0-50.0); HGB 13.3 g/dL (13.5-17.5); Immature Grans % 0.1; Lymphocytes % 19.5; MCV 85 fL (80-95); MPV 9.6 fL (8.0-11.0); Monocytes % 10.9; Neutrophils % 66.9; Platelet Count 238 10^3/uL (130-400); RBC 4.58 10^6/uL (4.36-5.78); RDW 12.6 % (11.8-14.1); RDW-SD 38.9 fL; WBC 6.82 10^3/uL (4.4-10.8)
--- NOTE | 2023-03-08 18:18 | DI.VRAD_ITS ---
PROCEDURE INFORMATION: Exam: XR Right Foot Exam date and time: 03/08/2023 5:59 PM Age: 38 years old Clinical indication: Foot; Right; Patient HX: Cellulitis, R/O gas, fb TECHNIQUE: Imaging protocol: Radiologic exam of the right foot. Views: 3 or more views. COMPARISON: CR XR TIB/FIB RT 03/08/2023 5:57 PM FINDINGS: Bones/joints: Normal. Soft tissues: There is no evidence for subcutaneous emphysema. Next lines there is soft tissue swelling over the dorsum of the entire foot. There is midfoot soft tissue swelling laterally. Next lines IMPRESSION: Diffuse soft tissue swelling. No evidence for subcutaneous emphysema. Dictated and Authenticated by: Bárbara Oneal MD. Ordering:DANIELA Quinteros MD
--- NOTE | 2023-03-08 18:19 | DI.VRAD_ITS ---
PROCEDURE INFORMATION: Exam: XR Right Tibia and Fibula Exam date and time: 03/08/2023 5:57 PM Age: 38 years old Clinical indication: Lower leg; Right; Patient HX: Cellulitis, R/O gas, fb TECHNIQUE: Imaging protocol: Radiologic exam of the right tibia and fibula. Views: 2 views. COMPARISON: CR XR ANKLE RT COMPLETE 03/08/2023 5:55 PM FINDINGS: Bones/joints: Bone density is appropriate. Bony alignment is anatomic. Soft tissues: There is some subtle linear lucency seen in the medial soft tissues of the calf, probable artifact from edema and subcutaneous fat. Attenuation is higher than expected for gas. IMPRESSION: Soft tissue edema. Appearance not typical for subcutaneous emphysema. If symptoms do not improve with treatment, CT evaluation or follow-up plain film assessment is recommended. Dictated and Authenticated by: Bárbara Oneal MD. Ordering:DANIELA Quinteros MD
--- NOTE | 2023-03-08 18:24 | DI.VRAD_ITS ---
PROCEDURE INFORMATION: Exam: XR Right Ankle Exam date and time: 03/08/2023 5:55 PM Age: 38 years old Clinical indication: Ankle; Right; Patient HX: Cellulitis, R/O gas, fb TECHNIQUE: Imaging protocol: Radiologic exam of the right ankle. Views: 3 or more views. COMPARISON: US LOWER EXTREMITY VENOUS RT 09/13/2021 6:38 PM FINDINGS: Bones/joints: Normal. Soft tissues: Diffuse soft tissue swelling noted. IMPRESSION: No evidence for subcutaneous emphysema. Dictated and Authenticated by: Bárbara Oneal MD. Ordering:DANIELA Quinteros MD
--- NOTE | 2023-03-08 18:25 | DI.VRAD_ITS ---
PROCEDURE INFORMATION: Exam: XR Chest Exam date and time: 03/08/2023 5:52 PM Age: 38 years old Clinical indication: Cough TECHNIQUE: Imaging protocol: Radiologic exam of the chest. Views: 2 views. COMPARISON: CR XR PORTABLE CHEST AP 07/13/2022 4:37 AM FINDINGS: Lungs: Unremarkable. No consolidation. Pleural spaces: Unremarkable. No pleural effusion. No pneumothorax. Heart/Mediastinum: Unremarkable. No cardiomegaly. Bones/joints: Unremarkable. IMPRESSION: No evidence for acute abnormality in the chest. Dictated and Authenticated by: Bárbara Oneal MD. Ordering:DANIELA Quinteros MD
[2023-03-08 18:55] LABS: ALT 62 U/L (16-63); AST 48 U/L (15-37); Albumin 3.6 g/dL (3.4-5.0); Alkaline Phosphatase 89 U/L (46-116); BUN 9 mg/dL (7-18); Bilirubin, Total 0.5 mg/dL (0.2-1.0); CREATININE 0.8 mg/dL (0.70-1.30); Calcium 8.7 mg/dL (8.5-10.1); Chloride 100 mmol/L (98-107); Estimated GFR 117.63 (mL/min/1.73m2); Glucose 97 mg/dL (74-106); Potassium 3.9 mmol/L (3.5-5.1); Sodium 138 mmol/L (136-145); Total Protein 7.2 g/dL (6.4-8.2)
[2023-03-08 19:31] VITALS: BP 115/67; PULSE 61; O2SAT 96
[2023-03-08] MEDS: Cephalexin 500 MG CAP, 2 CAPS/BTL PO (19:36)
[2023-03-08] MEDS: Sulfameth/Trimeth DS, 2 TABS/BTL 1 TAB PO (19:37)
== END 2023-03-08 19:37 | disposition home or self-care (01) ==
PROVIDERS: Emergency Provider Registered Nurse Emergency; PCP Family Medicine
DX: L03.115 Cellulitis of right lower limb (principal)
CPT/HCPCS: 80053; 87040; 96365; 99284; 71046; 73590; 73610; 73630; 83605; 83735; 85025

== ENCOUNTER 2023-03-20 03:11 | Emergency (ER) | payer MEDICAID, SELFPAY ==
[2023-03-20 03:16] VITALS: BP 117/71; PULSE 99; RESP 18; TEMP 37.2; O2SAT 99
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
== END 2023-03-20 03:36 | disposition home or self-care (01) ==
LOC: ER 03:28
PROVIDERS: Emergency Provider Student in an Organized Health Care Education/Training Program; PCP Family Medicine
DX: L03.115 Cellulitis of right lower limb (principal)
CPT/HCPCS: 99283; 99284

== ENCOUNTER 2023-05-03 15:44 | Emergency (ER) | payer MEDICAID, SELFPAY ==
[2023-05-03 16:03] VITALS: BP 140/80; PULSE 93; RESP 18; TEMP 36.8; O2SAT 96
--- NOTE | 2023-05-03 16:13 | W.ED.GENAD ---
Discharge Plan Disposition Patient Disposition: Home Condition: Stable Discharge Details Clinical Impression: Cellulitis of right lower extremity Primary Care Provider: Didier Garcia ED Provider: Neli Castaneda Home Meds and New Rx's Prescriptions: New clindamycin HCl 150 mg capsule 450 mg PO TID 10 Days Qty: 90 0RF Rx Instructions: Take 3 tabs by mouth 3 times daily x 10 days No Action methadone 10 mg/mL concentrate 110 mg PO DAILY MDD 110 mg Qty: 30 0RF Rx Instructions: per BAART sertraline [Zoloft] 100 mg tablet 150 mg PO DAILY Qty: 135 4RF Rx Instructions: 150MG DAILY albuterol 90 mcg/actuation Aerosol inhalation PRN PRN albuterol sulfate 90 mcg/actuation aerosol powdr breath activated 2 inh inhalation Q6H PRNQty: 1 0RF sulfamethoxazole-trimethoprim [Bactrim DS] 800-160 mg tablet 1 tab PO BID Qty: 20 0RF Patient Comments: no longer taking Discharge Instructions Instructions: Cellulitis (ED) Additional Instructions: Please take the Clindamycin 3 tablets three times daily for the next 10 days with yogurt or probiotic. Please take the full 10 days of antibiotics even when you are feeling better. Do not stop them before the full 10 days. Follow up with primary care provider in 3-5 days. Return to ED sooner if any worsening or concerns. Increase oral fluids. Please take Tylenol or Ibuprofen with food every 4-6 hours as needed for pain and swelling. Referrals: [facility] [Outside] - 2 days (Call them to speak with radiation control specialist) Didier Garcia MD [Primary Care Provider] - 3 days Discharge Data Discharge Date/Time-TO BE ENTERED AT DEPARTURE: 05/03/23 17:59 Medical Decision Making 38 year old male presents to the ED with right leg cellulitis and swelling. Patient reports he was seen for similar approximately 1 month ago. Stopped taking antibiotics when leg felt better. Now it is worse, he also took two days of cephalexin and bactrim. Your chills history of drug abuse and dependence, sleep apnea, cellulitis of leg, anxiety alcohol use ADHD depression and opioid dependence. He does appear to be under the influence at this time. Work-up ordered including CBC CMP, lactate liter of normal saline and 600 mg clindamycin. Labs are largely unremarkable no leukocytosis lactate within normal limits. Patient discharged with Clindamycin prescription. Instructed to continue taking the whole course of antibiotic and follow-up with PCP in 3 to 5 days. This text was generated using Swogoation system, please disregard any oddities of phrase or misspellings. Medical Records Medical records reviewed: Yes I reviewed the patient's medical records. Lab Data Lab results reviewed: Yes I reviewed the patient's lab results. Labs: 05/03/23 17:05 Blood Blood Culture - Pending 05/03/23 16:57 Blood Blood Culture - Pending Laboratory Tests Range/Units 05/03/23 05/03/23 05/03/23 16:57 16:57 16:57 WBC (4.4-10.8) 10^3/uL 8.33 RBC (4.36-5.78) 10^6/uL 3.92 L Hgb (13.5-17.5) g/dL 11.2 L Hct (40.0-50.0) % 33.2 L MCV (80-95) fL 85 MCH (27.0-33.0) pg 28.6 MCHC (32.0-36.0) % 33.7 RDW (11.8-14.1) % 12.8 Plt Count (130-400) 10^3/uL 306 MPV (8.0-11.0) fL 9.9 Immature Gran % 0.2 Neutrophils % 71.9 Lymphocytes % 17.8 Monocytes % 8.5 Eosinophils % 1.2 Basophils % 0.4 Nucleated RBC % (0.0-0.3) % 0.0 Absolute Neutrophils (1.2-6.7) 10^3/uL 5.99 Absolute Lymphocytes (1.2-3.4) 10^3/uL 1.48 Absolute Monocytes (0.1-0.8) 10^3/uL 0.71 Absolute Eosinophils (0.0-0.7) 10^3/uL 0.10 Absolute Basophils (0.0-0.2) 10^3/uL 0.03 VBG Lactate (0.6-1.4) mmol/L 0.7 Sodium (136-145) mmol/L 134 L Potassium (3.5-5.1) mmol/L 3.9 Chloride (98-107) mmol/L 99 Carbon Dioxide (21.0-32.0) mmol/L 30.5 Anion Gap (3-11) mmol/L 4.5 BUN (7-18) mg/dL 11 Creatinine (0.70-1.30) mg/dL 0.7 Est GFR (CKD-EPI 2020) (mL/min/1.73m2) 122.47 Glucose (74-106) mg/dL 99 Calcium (8.5-10.1) mg/dL 9.3 Total Bilirubin (0.2-1.0) mg/dL 0.5 AST (15-37) U/L 43 H ALT (16-63) U/L 44 Alkaline Phosphatase (46-116) U/L 75 Total Protein (6.4-8.2) g/dL 7.6 Albumin (3.4-5.0) g/dL 3.3 L HPI General Mode of arrival: ambulatory. Date/Time Provider Initiated Documentation: 05/03/23 15:47. Limitations to Documentation: no limitations. Information obtained by: patient, RN notes reviewed and old records reviewed. HPI Narrative: 38 year old male presents to the ED with right leg cellulitis and swelling. Patient reports he was seen for similar approximately 1 month ago. Stopped taking antibiotics when leg felt better. Now it is worse, he also took two days of cephalexin and bactrim. Your chills history of drug abuse and dependence, sleep apnea, cellulitis of leg, anxiety alcohol use ADHD depression and opioid dependence. He does appear to be under the influence at this time. Related Data Home Medications Medication Instructions Recorded Confirmed sertraline 100 mg tablet (Zoloft) 150 mg PO DAILY #135 tab-caps 06/11/22 05/03/23 albuterol 90 mcg/actuation aerosol inhalation PRN PRN 07/13/22 09/10/22 inhaler albuterol sulfate 90 mcg/actuation 2 inh inhalation Q6H PRN #1 ea 07/13/22 05/03/23 breath activated powder inhaler methadone 10 mg/mL oral concentrate 110 mg (11 mL) PO DAILY #30 mL 09/10/22 05/03/23 sulfamethoxazole 800 1 tab PO BID #20 tabs 03/20/23 mg-trimethoprim 160 mg tablet (Bactrim DS) clindamycin HCl 150 mg capsule 450 mg PO TID cellulitis 10 days 05/03/23 #90 caps Previous Rx's Medication Instructions Recorded sertraline 100 mg tablet (Zoloft) 150 mg PO DAILY #135 tab-caps 06/11/22 albuterol sulfate 90 mcg/actuation 2 inh inhalation Q6H PRN #1 ea 07/13/22 breath activated powder inhaler methadone 10 mg/mL oral concentrate 110 mg (11 mL) PO DAILY #30 mL 09/10/22 sulfamethoxazole 800 1 tab PO BID #20 tabs 03/20/23 mg-trimethoprim 160 mg tablet (Bactrim DS) clindamycin HCl 150 mg capsule 450 mg PO TID cellulitis 10 days 05/03/23 #90 caps Allergies Allergy/AdvReac Type Severity Reaction Status Date / Time No Known Allergies Allergy Verified 05/03/23 16:05 General Stated Complaint: Cellulitis [place]: 4 Review of Systems All systems reviewed & are unremarkable except as noted in HPI and below Musculoskeletal Musculoskeletal: Reports as per HPI Integumentary/Breasts Skin/Breast: Reports erythema and Reports skin swelling PFSH All Active Problems (Updated 05/03/23 @ 17:53 by Neli Castaneda NP) Cellulitis of right lower extremity (Acute) Drug abuse and dependence (Acute) Sleep apnea with use of continuous positive airway pressure (CPAP) (Acute ~03/2018) Leg pain (Acute) Cellulitis of leg, left (Acute) Allergic dermatitis due to poison [place] (Acute) Cellulitis of shaft of penis (Acute) Viral URI (Acute) Back muscle spasm (Acute) Low back pain (Acute) Alcohol use (Acute) Anxiety (Acute) Attention deficit hyperactivity disorder (Acute) Undiagnosed cardiac murmurs (Acute) Depressive disorder (Acute) History of intravenous drug abuse (Acute 11/28/17) Opioid dependence (Acute) Medical History IV drug abuse Family History Mother Alcohol abuse Father Alcohol abuse Essential hypertension Depression Sister Asthma Brother No problems noted. Grandfather Hyperlipidemia Neoplasm Social History Smoking/Tobacco Use Status: Current every day Tobacco Type: cigarettes Tobacco: How many years used: 15 Smoking risk assessment performed?: Yes Alcohol Intake: current Alcohol Intake frequency: a few times a week Alcohol type: beer Drug use: Occasionally Substance use type: marijuana, crack/cocaine and heroin Details: Clinic for heroine with occassional use. Occassional use of cocaine. Do you feel safe at home: Yes Do you feel safe in your relationship?: Yes Exam Extrem Right lower extremity: lower leg Details: erythema, tenderness, localized swelling, non-pitting edema and warmth Ankle/foot/toe images: 1. Erythema swelling Course Vital Signs Vital signs: Vital Signs Temperature 36.8 C 05/03/23 16:03 Pulse 93 H 05/03/23 16:03 Respiratory Rate 18 05/03/23 16:03 Blood Pressure 140/80 05/03/23 16:03 Pulse Oximetry 96 05/03/23 16:03 Temperature 36.8 C 05/03/23 16:03 Temperature Source Skin 05/03/23 16:03 Pulse 93 H 05/03/23 16:03 Respiratory Rate 18 05/03/23 16:03 Respiratory Effort Normal 05/03/23 16:06 Blood Pressure 140/80 05/03/23 16:03 Blood Pressure Position Sitting 05/03/23 16:03 Pulse Oximetry 96 05/03/23 16:03 Oxygen Delivery Method Room Air 05/03/23 16:03 Oxygen Flow Rate 0 05/03/23 16:03 Pain Level 6 05/03/23 16:03 Lab/Test Results Lab/Test Results: 05/03/23 16:12 Blood Blood Culture - Pending
[2023-05-03 17:05] LABS: Lactate 0.7 mmol/L (0.6-1.4)
[2023-05-03 17:12] LABS: Abs Immature Grans 0.02 10^3/uL (0.0-0.06); Absolute Basophil Count 0.03 10^3/uL (0.0-0.2); Absolute Lymphocyte Count 1.48 10^3/uL (1.2-3.4); Absolute Monocyte Count 0.71 10^3/uL (0.1-0.8); Absolute Neutrophil Count 5.99 10^3/uL (1.2-6.7); Basophils % 0.4; Eosinophils % 1.2; HCT 33.2 % (40.0-50.0); HGB 11.2 g/dL (13.5-17.5); Immature Grans % 0.2; Lymphocytes % 17.8; MCH 28.6 pg (27.0-33.0); MCHC 33.7 % (32.0-36.0); MCV 85 fL (80-95); MPV 9.9 fL (8.0-11.0); Monocytes % 8.5; Neutrophils % 71.9; Platelet Count 306 10^3/uL (130-400); RBC 3.92 10^6/uL (4.36-5.78); RDW 12.8 % (11.8-14.1); RDW-SD 39.3 fL; WBC 8.33 10^3/uL (4.4-10.8)
[2023-05-03] MEDS: Normal Saline 1,000 ML 1000 ML IV (17:15)
[2023-05-03] MEDS: CLINDAMYCIN 600 MG/50 ML BAG 100 MG IVPB (17:15)
[2023-05-03 17:26] LABS: ALT 44 U/L (16-63); AST 43 U/L (15-37); Albumin 3.3 g/dL (3.4-5.0); Alkaline Phosphatase 75 U/L (46-116); Anion Gap 4.5 mmol/L (3-11); BUN 11 mg/dL (7-18); Bilirubin, Total 0.5 mg/dL (0.2-1.0); CO2 30.5 mmol/L (21.0-32.0); CREATININE 0.7 mg/dL (0.70-1.30); Calcium 9.3 mg/dL (8.5-10.1); Chloride 99 mmol/L (98-107); Estimated GFR 122.47 (mL/min/1.73m2); Glucose 99 mg/dL (74-106); Potassium 3.9 mmol/L (3.5-5.1); Sodium 134 mmol/L (136-145); Total Protein 7.6 g/dL (6.4-8.2)
== END 2023-05-03 17:59 | disposition home or self-care (01) ==
PROVIDERS: Emergency Provider Registered Nurse Emergency; PCP Family Medicine
DX: L03.115 Cellulitis of right lower limb (principal)
CPT/HCPCS: 36415; 80053; 87040; 96365; 99284; 83605; 85025

== ENCOUNTER 2023-06-23 05:11 | Emergency (ER) | payer MEDICAID, SELFPAY ==
[2023-06-23 05:15] VITALS: BP 166/92; PULSE 68; RESP 16; TEMP 36.3; O2SAT 97
[2023-06-23 05:24] VITALS: BP 166/92; PULSE 68; RESP 16; TEMP 36.3; O2SAT 97
--- NOTE | 2023-06-23 05:33 | ED.GENADUL_ITS ---
Discharge Plan Disposition Patient Disposition: Home Condition: Good Discharge Details Clinical Impression: Acute pain in right eye, Abrasion of cornea, right Primary Care Provider: Didier Garcia ED Provider: Nevaeh Vega Home Meds and New Rx's Prescriptions: No Action methadone 10 mg/mL concentrate 110 mg PO DAILY MDD 110 mg Qty: 30 0RF Rx Instructions: per NUHA sertraline [Zoloft] 100 mg tablet 150 mg PO DAILY Qty: 135 4RF Rx Instructions: 150MG DAILY Discharge Instructions Instructions: Corneal Abrasion (ED) Additional Instructions: use the provided ointment three times per day avoid rubbing your eye if symptoms aren't improving you need to see the eye doctor Medical Decision Making Emergent evaluation for right eye pain. Initial differential corneal abrasion, preseptal cellulitis, orbital cellulitis. Patient denies any trauma. He is showing no signs of. Intoxication. He endorses IV opiate use. I do not feel that he needs Narcan at this time. His IV drug use does increase his risk for infection. His story this evening exam is consistent with a corneal abrasion. Patient continues to rub his eye and I have advised him to stop doing this he has been provided with erythromycin ointment to use 3 times daily. Strict return precautions advised. Advised to avoid rubbing or flushing aggressively with water. At this time due to the patient's clinical opiate Intoxication, we have asked him to call a ride for safe transportation home. Medical Records Medical records reviewed: Yes I reviewed the patient's medical records. HPI General Date/Time Provider Initiated Documentation: 06/23/23 05:21 . Limitations to Documentation: no limitations . Information obtained by: patient . HPI Narrative: 38y M with history of opiate dependence presents for evaluation of right eye pain. Reports that he he went to last night and his eye was fine. Woke up this morning he had significant pain in the right eye. He states that it feels like there is something in his eye. He states that the eye makes it worse. He has been rubbing his eye and flushing with water without improvement. Related Data Home Medications Medication Instructions Recorded Confirmed sertraline 100 mg tablet (Zoloft) 150 mg (1.5 x 100 mg) PO DAILY 06/11/22 06/23/23 #135 tab-caps methadone 10 mg/mL oral concentrate 110 mg (11 mL) PO DAILY #30 mL 09/10/22 06/23/23 Previous Rx's Medication Instructions Recorded sertraline 100 mg tablet (Zoloft) 150 mg (1.5 x 100 mg) PO DAILY 06/11/22 #135 tab-caps methadone 10 mg/mL oral concentrate 110 mg (11 mL) PO DAILY #30 mL 09/10/22 Allergies Allergy/AdvReac Type Severity Reaction Status Date / Time No Known Allergies Allergy Verified 06/23/23 05:27 General Stated Complaint: EyeProblem [place]: 4 PFSH All Active Problems Abrasion of cornea, right (Acute) Acute pain in right eye (Acute) Drug abuse and dependence (Acute) Sleep apnea with use of continuous positive airway pressure (CPAP) (Acute ~03/2018) Leg pain (Acute) Cellulitis of leg, left (Acute) Allergic dermatitis due to poison [place] (Acute) Cellulitis of shaft of penis (Acute) Viral URI (Acute) Back muscle spasm (Acute) Low back pain (Acute) Alcohol use (Acute) Anxiety (Acute) Attention deficit hyperactivity disorder (Acute) Undiagnosed cardiac murmurs (Acute) Depressive disorder (Acute) History of intravenous drug abuse (Acute 11/28/17) Opioid dependence (Acute) Medical History IV drug abuse Family History Mother Alcohol abuse Father Alcohol abuse Essential hypertension Depression Sister Asthma Brother No problems noted. Grandfather Hyperlipidemia Neoplasm Social History Smoking/Tobacco Use Status: Current every day Tobacco Type: cigarettes Tobacco: How many years used: 15 Smoking risk assessment performed?: Yes Alcohol Intake: current Alcohol Intake frequency: a few times a week Alcohol type: beer Drug use: Occasionally Substance use type: marijuana, crack/cocaine and heroin Details: Clinic for heroine with occassional use. Occassional use of cocaine. Do you feel safe at home: Yes Do you feel safe in your relationship?: Yes Exam Narrative Exam Narrative: Review of Systems: All systems reviewed & are unremarkable except as noted in HPI and below Well-developed, no acute distress NACT Pupils pinpoint, equal and reactive, right eye with periorbital edema non tender no fluctuance, mild conjunctival injection, no foreign body noted flouriscein exam with uptake at 7 o'clock, not within visual access, appx 1mm round RRR Unlabored respiratory effort Nondistended abdomen Extremities w/o deformity, no cyanosis, no edema No rashes or lesions. no focal neurologic deficits Course Vital Signs Vital signs: Vital Signs Temperature 36.3 C L 06/23/23 05:15 Pulse 68 06/23/23 05:15 Respiratory Rate 16 06/23/23 05:15 Blood Pressure 166/92 H 06/23/23 05:15 Pulse Oximetry 97 06/23/23 05:15 Temperature 36.3 C L 06/23/23 05:24 Temperature Source Oral 06/23/23 05:24 Pulse 68 06/23/23 05:24 Respiratory Rate 16 06/23/23 05:24 Respiratory Effort Normal, Non-Labored 06/23/23 05:23 Blood Pressure 166/92 H 06/23/23 05:24 Blood Pressure Position Sitting 06/23/23 05:24 Pulse Oximetry 97 06/23/23 05:24 Oxygen Delivery Method Room Air 06/23/23 05:24 Oxygen Flow Rate 0 06/23/23 05:15
[2023-06-23 06:10] VITALS: BP 150/80; PULSE 64; RESP 16; O2SAT 97
[2023-06-23] MEDS: Fluorescein STRIPS 100/BOX 1 MG OP (06:11)
[2023-06-23] MEDS: Erythromycin Ophth Oint 3.5 GM TUBE OU (06:11)
[2023-06-23] MEDS: Tetracaine 0.5% 4 ML BTL OP (06:11)
== END 2023-06-23 06:11 | disposition home or self-care (01) ==
LOC: ER 06:11
PROVIDERS: Emergency Provider Emergency Medicine; PCP Family Medicine
DX: H57.11 Ocular pain, right eye (principal); S05.01XA Injury of conjunctiva and corneal abrasion without foreign body, right eye, initial encounter; F11.20 Opioid dependence, uncomplicated
CPT/HCPCS: 99283

== ENCOUNTER 2023-07-22 19:07 | Emergency (ER) | payer MEDICAID, SELFPAY ==
[2023-07-22 19:13] VITALS: BP 154/88; PULSE 94; RESP 18; TEMP 36.8; O2SAT 99
--- NOTE | 2023-07-22 19:35 | ED.GENADUL_ITS ---
Discharge Plan Disposition Patient Disposition: Home Condition: Stable Discharge Details Clinical Impression: Cellulitis, Leg swelling Primary Care Provider: Didier Garcia ED Provider: Riaz Ross Home Meds and New Rx's Prescriptions: New clindamycin HCl 300 mg capsule 300 mg PO QID 7 Days Qty: 28 0RF No Action methadone 10 mg/mL concentrate 110 mg PO DAILY MDD 110 mg Qty: 30 0RF Rx Instructions: per BAART sertraline [Zoloft] 100 mg tablet 150 mg PO DAILY Qty: 135 4RF Rx Instructions: 150MG DAILY Discharge Instructions Instructions: Cellulitis (ED) Additional Instructions: Please return tomorrow for official ultrasound of your lower extremity. Please take medications as prescribed. Follow-up closely with your primary care physician. Medical Decision Making 38-year-old male history of prior cellulitis, polysubstance abuse, presents with right lower extremity redness pain and swelling over the past several weeks, shallow ulcerations to posterior aspect of limb, no purulence fluctuance or crepitus appreciated however warm and indurated to the touch, sensate mobile extremity ambulatory without assistance, DP pulse intact, afebrile nontoxic. Bedside ultrasound negative for DVT however positive for lymphadenopathy in the groin, high clinical suspicion for cellulitis. Will start empiric clindamycin given history and physical. Will also arrange for patient to have official ultrasound performed in the morning by radiology. Home care instructions and return precautions to be given HPI General Date/Time Provider Initiated Documentation: 07/22/23 19:10 . HPI Narrative: 38-year-old male presents with red swollen lower leg and ankle has been present for about 1 month. Denies fevers or chills. Denies history of blood clots. Related Data Home Medications Medication Instructions Recorded Confirmed sertraline 100 mg tablet (Zoloft) 150 mg (1.5 x 100 mg) PO DAILY 06/11/22 07/22/23 #135 tab-caps methadone 10 mg/mL oral concentrate 110 mg (11 mL) PO DAILY #30 mL 09/10/22 07/22/23 clindamycin HCl 300 mg capsule 300 mg PO QID 7 days #28 caps 07/22/23 Previous Rx's Medication Instructions Recorded sertraline 100 mg tablet (Zoloft) 150 mg (1.5 x 100 mg) PO DAILY 11/15/22 #135 tab-caps methadone 10 mg/mL oral concentrate 110 mg (11 mL) PO DAILY #30 mL 09/10/22 clindamycin HCl 300 mg capsule 300 mg PO QID 7 days #28 caps 07/22/23 Allergies Allergy/AdvReac Type Severity Reaction Status Date / Time No Known Allergies Allergy Verified 07/22/23 19:12 General Stated Complaint: Cellulitis [place]: 3 Review of Systems Narrative: Review of Systems Constitutional: negative Eyes: negative ENT: negative Cardiovascular: negative Respiratory: negative Gastrointestinal: negative : negative Musculoskeletal: negative Skin: Leg swelling, pain Neurologic: negative Psych: negative PFSH All Active Problems (Updated 07/22/23 @ 19:39 by Riaz Ross MD) Leg swelling (Acute) Cellulitis (Acute) Abrasion of cornea, right (Acute) Acute pain in right eye (Acute) Drug abuse and dependence (Acute) Sleep apnea with use of continuous positive airway pressure (CPAP) (Acute ~03/2018) Leg pain (Acute) Cellulitis of leg, left (Acute) Allergic dermatitis due to poison [place] (Acute) Cellulitis of shaft of penis (Acute) Viral URI (Acute) Back muscle spasm (Acute) Low back pain (Acute) Alcohol use (Acute) Anxiety (Acute) Attention deficit hyperactivity disorder (Acute) Undiagnosed cardiac murmurs (Acute) Depressive disorder (Acute) History of intravenous drug abuse (Acute 11/28/17) Opioid dependence (Acute) Medical History IV drug abuse Family History Mother Alcohol abuse Father Alcohol abuse Essential hypertension Depression Sister Asthma Brother No problems noted. Grandfather Hyperlipidemia Neoplasm Social History Smoking/Tobacco Use Status: Current every day Tobacco Type: cigarettes Tobacco: How many years used: 15 Smoking risk assessment performed?: Yes Alcohol Intake: current Alcohol Intake frequency: a few times a week Alcohol type: beer Drug use: Occasionally Substance use type: marijuana, crack/cocaine and heroin Details: Clinic for heroine with occassional use. Occassional use of cocaine. Do you feel safe at home: Yes Do you feel safe in your relationship?: Yes Exam Narrative Exam Narrative: Physical Examination General: alert, awake, cooperative, resting comfortably, no acute distress HEENT: normocephalic, atraumatic; PERRL, EOM intact, conjunctiva normal; no nasal discharge; moist mucous membranes, oral and pharyngeal mucosa normal, tolerating secretions Neck: supple, trachea midline; full ROM Chest: normal to inspection Respiratory: normal respiratory effort, speaking in full sentences Skin: See extremity Neuro: AAOx3, normal speech, moving all extremities Extremities: Induration and erythema to right lower extremity lower leg extending from proximal tibial region down into ankle and foot, shallow posterior ulcerations approximately 1 to 2 cm in diameter no areas of fluctuance or crepitus; warm well-perfused sensate extremity mobile, DP pulse intact Psych: Appropriate mood and affect Course Vital Signs Vital signs: Vital Signs Temperature 36.8 C 07/22/23 19:13 Pulse 94 H 07/22/23 19:13 Respiratory Rate 18 07/22/23 19:13 Blood Pressure 154/88 H 07/22/23 19:13 Pulse Oximetry 99 07/22/23 19:13 Temperature 36.8 C 07/22/23 19:13 Pulse 94 H 07/22/23 19:13 Respiratory Rate 18 07/22/23 19:13 Respiratory Effort Normal 07/22/23 19:17 Blood Pressure 154/88 H 07/22/23 19:13 Blood Pressure Position Sitting 07/22/23 19:13 Pulse Oximetry 99 07/22/23 19:13 Oxygen Delivery Method Room Air 07/22/23 19:13 Oxygen Flow Rate 0 07/22/23 19:13 PAWSS Have you Been Recently Intoxicated or Drunk Within the Last 30 days?: No Have you Ever Experienced Previous Episodes of Alcohol Withdrawal?: No Have you ever Experienced Withdrawal Seizures?: No Have you ever Experienced Delirium Tremens(DT)s?: No Have you ever undergone Alcohol Rehabilitation Treatment (i.e, inpt ot outpatient treatment programs)?: No Have you ever Experienced Blackouts?: No Have you ever Combined Alcohol with other Downers within the last 90 days?: No Have you ever Combined Alcohol with any other Substance of Abuse during the last 90 days?: No Positive Blood Alcohol level on Presentation? [PCS.BAL]: No Evidence of Increased Autonomic Activity (i.e. HR>120, tremor, sweating, agitation, nausea)?: No Result: 0
--- NOTE | 2023-07-22 19:47 | NUR.NOTE ---
[facility] Ultrasound requisition faxed to [facility], patient to f/u in ED if positive, f/u with PCP if negative. Patient advised to call [facility] scheduling to make appt 07/23/23.Nursing Note:
[2023-07-22] MEDS: Clindamycin 150 MG CAP 450 MG PO (19:54)
--- NOTE | 2023-07-24 11:23 | NUR.NOTE ---
Per Radiology patient was a no show for leg US on 07/23/23 Nursing Note:
== END 2023-07-22 19:55 | disposition home or self-care (01) ==
PROVIDERS: Emergency Provider Emergency Medicine; PCP Family Medicine
DX: L03.115 Cellulitis of right lower limb (principal)
CPT/HCPCS: 99283; 99284

== ENCOUNTER 2023-10-24 19:07 | Emergency (ER) | payer MEDICAID, SELFPAY ==
[2023-10-24 19:16] VITALS: BP 144/85; PULSE 88; RESP 18; TEMP 37; O2SAT 99
--- NOTE | 2023-10-24 20:00 | DI.RAD_ITS ---
Exam(s) XR CHEST 2V PA LATERAL EXAM: XR CHEST 2V PA LATERAL CLINICAL HISTORY: shortness of breath, wheezing TECHNIQUE: 2D digital imaging was performed of the chest. Two images were obtained. PA and lateral views were obtained. COMPARISON: CR,XR XR CHEST 2V PA LATERAL from 03/08/2023 FINDINGS: MEDIASTINUM: Normal. HEART: Normal. PULMONARY VASCULATURE: Normal. LUNGS: Clear. PLEURAL SPACE: No pleural effusion or pneumothorax. BONE:Within normal limits for the patient's age. OTHER FINDINGS:Normal. IMPRESSION: No acute pulmonary findings. DATA REPOSITORY: RADIATION DOSE DELIVERED:
[2023-10-24 20:25] LABS: Abs Immature Grans 0.01 10^3/uL (0.0-0.06); Absolute Basophil Count 0.04 10^3/uL (0.0-0.2); Absolute Lymphocyte Count 1.97 10^3/uL (1.2-3.4); Absolute Monocyte Count 0.51 10^3/uL (0.1-0.8); Absolute Neutrophil Count 3.82 10^3/uL (1.2-6.7); Basophils % 0.6; Eosinophils % 3.1; HGB 13.3 g/dL (13.5-17.5); Immature Grans % 0.2; Lymphocytes % 30.1; MCH 28.2 pg (27.0-33.0); MCHC 33.3 % (32.0-36.0); MCV 85 fL (80-95); MPV 9.1 fL (8.0-11.0); Monocytes % 7.8; Neutrophils % 58.2; Platelet Count 268 10^3/uL (130-400); RBC 4.71 10^6/uL (4.36-5.78); RDW 13.1 % (11.8-14.1); RDW-SD 40.1 fL; WBC 6.55 10^3/uL (4.4-10.8)
[2023-10-24 20:39] LABS: ALT 51 U/L (16-63); AST 36 U/L (15-37); Albumin 3.6 g/dL (3.4-5.0); Alkaline Phosphatase 78 U/L (46-116); Anion Gap 6.4 mmol/L (3-11); BUN 14 mg/dL (7-18); Bilirubin, Total 0.4 mg/dL (0.2-1.0); CO2 31.6 mmol/L (21.0-32.0); CREATININE 0.7 mg/dL (0.70-1.30); Calcium 8.6 mg/dL (8.5-10.1); Chloride 104 mmol/L (98-107); Estimated GFR 122.47 (mL/min/1.73m2); Glucose 100 mg/dL (74-106); Potassium 4.1 mmol/L (3.5-5.1); Sodium 142 mmol/L (136-145); Total Protein 7.7 g/dL (6.4-8.2)
--- NOTE | 2023-10-24 20:49 | DI.VRAD_ITS ---
PROCEDURE INFORMATION: Exam: XR Chest Exam date and time: 10/24/2023 8:21 PM Age: 38 years old Clinical indication: Shortness of breath and wheezing; Additional info: Shortness of breath, wheezing TECHNIQUE: Imaging protocol: Radiologic exam of the chest. Views: 2 views. COMPARISON: CR XR CHEST 2V PA LATERAL 03/08/2023 5:52 PM FINDINGS: Lungs: Unremarkable. No consolidation. Pleural spaces: Unremarkable. No pleural effusion. No pneumothorax. Heart/Mediastinum: Unremarkable. No cardiomegaly. Bones/joints: Unremarkable. IMPRESSION: No acute findings. Dictated and Authenticated by: Marco A Calix MD. Ordering:POOL Gonzales MD
[2023-10-24] MEDS: Doxycycline Hyclate 100 MG, 2 CAPS/BTL PO (20:59)
--- NOTE | 2023-10-24 21:52 | ED.GENADUL_ITS ---
Discharge Plan Disposition Patient Disposition: Home Condition: Stable Discharge Details Clinical Impression: Cellulitis, Peripheral edema Primary Care Provider: Didier Garcia ED Provider: Janet Santizo Home Meds and New Rx's Prescriptions: New doxycycline hyclate 100 mg capsule 100 mg PO BID Qty: 20 0RF Continued sertraline [Zoloft] 100 mg tablet 150 mg PO DAILY Qty: 135 4RF Rx Instructions: 150MG DAILY Discharge Instructions Instructions: Cellulitis (ED) Additional Instructions: Use the LOAN stockings when you are up and about as much as possible this will help reduce the swelling in your legs Take antibiotic as prescribed Elevate your legs is much as possible Please follow-up with your doctor and you have the resources for [facility] Please return earlier should you have spreading redness, fever, worsening pain Referrals: [facility] [Outside] Didier Garcia MD [Primary Care Provider] - Discharge Data Discharge Date/Time-TO BE ENTERED AT DEPARTURE: 10/24/23 21:00 HPI General Date/Time Provider Initiated Documentation: 10/24/23 19:59 . HPI Narrative: 38-year-old male with history of IV drug abuse presents with report of bilateral peripheral edema redness, and pain. Patient does continue to use IV heroin, injects predominantly in his right arm. Denies any previous injections into his lower extremities. He states this started approximately 4 days ago has been off antibiotics for the past several months. He denies any fever or chills. Denies any chest pain or shortness of breath. States that he does not have interest in detox at this time. Related Data Home Medications Medication Instructions Recorded Confirmed sertraline 100 mg tablet (Zoloft) 150 mg (1.5 x 100 mg) PO DAILY 06/11/22 10/24/23 #135 tab-caps doxycycline hyclate 100 mg capsule 100 mg PO BID #20 caps 10/24/23 Previous Rx's Medication Instructions Recorded sertraline 100 mg tablet (Zoloft) 150 mg (1.5 x 100 mg) PO DAILY 06/11/22 #135 tab-caps doxycycline hyclate 100 mg capsule 100 mg PO BID #20 caps 10/24/23 Allergies Allergy/AdvReac Type Severity Reaction Status Date / Time No Known Allergies Allergy Verified 10/24/23 19:19 General Stated Complaint: Cellulitis [place]: 4 Course Vital Signs Vital signs: Vital Signs Temperature 37.0 C 10/24/23 19:16 Pulse 88 10/24/23 19:16 Respiratory Rate 18 10/24/23 19:16 Blood Pressure 144/85 H 10/24/23 19:16 Pulse Oximetry 99 10/24/23 19:16 Temperature 37.0 C 10/24/23 19:16 Pulse 88 10/24/23 19:16 Respiratory Rate 18 10/24/23 19:16 Respiratory Effort Normal 10/24/23 19:19 Blood Pressure 144/85 H 10/24/23 19:16 Blood Pressure Position Sitting 10/24/23 19:16 Pulse Oximetry 99 10/24/23 19:16 Oxygen Delivery Method Room Air 10/24/23 19:16 Oxygen Flow Rate 0 10/24/23 19:16 Pain Level 5 10/24/23 20:57 Lab/Test Results Lab/Test Results: Laboratory Tests Range/Units 10/24/23 20:15 WBC (4.4-10.8) 10^3/uL 6.55 RBC (4.36-5.78) 10^6/uL 4.71 Hgb (13.5-17.5) g/dL 13.3 L Hct (40.0-50.0) % 40.0 MCV (80-95) fL 85 MCH (27.0-33.0) pg 28.2 MCHC (32.0-36.0) % 33.3 RDW (11.8-14.1) % 13.1 Plt Count (130-400) 10^3/uL 268 MPV (8.0-11.0) fL 9.1 Immature Gran % 0.2 Neutrophils % 58.2 Lymphocytes % 30.1 Monocytes % 7.8 Eosinophils % 3.1 Basophils % 0.6 Nucleated RBC % (0.0-0.3) % 0.0 Absolute Neutrophils (1.2-6.7) 10^3/uL 3.82 Absolute Lymphocytes (1.2-3.4) 10^3/uL 1.97 Absolute Monocytes (0.1-0.8) 10^3/uL 0.51 Absolute Eosinophils (0.0-0.7) 10^3/uL 0.20 Absolute Basophils (0.0-0.2) 10^3/uL 0.04 Sodium (136-145) mmol/L 142 Potassium (3.5-5.1) mmol/L 4.1 Chloride (98-107) mmol/L 104 Carbon Dioxide (21.0-32.0) mmol/L 31.6 Anion Gap (3-11) mmol/L 6.4 BUN (7-18) mg/dL 14 Creatinine (0.70-1.30) mg/dL 0.7 Est GFR (CKD-EPI 2020) (mL/min/1.73m2) 122.47 Glucose (74-106) mg/dL 100 Calcium (8.5-10.1) mg/dL 8.6 Total Bilirubin (0.2-1.0) mg/dL 0.4 AST (15-37) U/L 36 ALT (16-63) U/L 51 Alkaline Phosphatase (46-116) U/L 78 Total Protein (6.4-8.2) g/dL 7.7 Albumin (3.4-5.0) g/dL 3.6 Medical Decision Making 38-year-old male presenting with peripheral edema and redness Labs do not show significant acute abnormality, chest x-ray was ordered as patient had some wheezing, no acute abnormality per radiology interpretation my review Distal pulses are intact, 3+ pitting edema to bilateral lower extremities, this is slightly worsened per patient, no evidence of DVT, suspect peripheral vascular disease and the presence of polysubstance abuse Offered [place] recovery, patient has declined Fully alert, oriented, of decisional capacity Quality:SDOH Health Related Social Needs: No Data to Display PFSH All Active Problems (Updated 10/24/23 @ 20:50 by WILL Gonzalez) Peripheral edema (Acute) Cellulitis (Acute) Drug abuse and dependence (Acute) Sleep apnea with use of continuous positive airway pressure (CPAP) (Acute ~03/2018) Leg pain (Acute) Cellulitis of leg, left (Acute) Allergic dermatitis due to poison [place] (Acute) Cellulitis of shaft of penis (Acute) Viral URI (Acute) Back muscle spasm (Acute) Low back pain (Acute) Alcohol use (Acute) Anxiety (Acute) Attention deficit hyperactivity disorder (Acute) Undiagnosed cardiac murmurs (Acute) Depressive disorder (Acute) History of intravenous drug abuse (Acute 11/28/17) Opioid dependence (Acute) Medical History IV drug abuse Family History Mother Alcohol abuse Father Alcohol abuse Essential hypertension Depression Sister Asthma Brother No problems noted. Grandfather Hyperlipidemia Neoplasm Social History Smoking/Tobacco Use Status: Current every day Tobacco Type: cigarettes Tobacco: How many years used: 15 Smoking risk assessment performed?: Yes Alcohol Intake: current Alcohol Intake frequency: a few times a week Alcohol type: beer Drug use: Occasionally Substance use type: marijuana, crack/cocaine and heroin Details: Clinic for heroine with occassional use. Occassional use of cocaine. Do you feel safe at home: Yes Do you feel safe in your relationship?: Yes
== END 2023-10-24 21:00 | disposition home or self-care (01) ==
PROVIDERS: Emergency Provider Physician Assistant; PCP Family Medicine
DX: L03.115 Cellulitis of right lower limb (principal); L03.116 Cellulitis of left lower limb; R60.9 Edema, unspecified; F11.10 Opioid abuse, uncomplicated
CPT/HCPCS: 80053; 99284; 71046; 85025

== ENCOUNTER 2024-02-02 12:36 | Outpatient (CLI) | payer MEDICAID, SELFPAY ==
[2024-02-02 12:29] LABS: Abs Immature Grans 0.02 10^3/uL (0.0-0.06); Absolute Basophil Count 0.03 10^3/uL (0.0-0.2); Absolute Eosinophil Count 0.08 10^3/uL (0.0-0.7); Absolute Lymphocyte Count 1.38 10^3/uL (1.2-3.4); Absolute Monocyte Count 0.49 10^3/uL (0.1-0.8); Absolute Neutrophil Count 5.42 10^3/uL (1.2-6.7); Basophils % 0.4 %; Eosinophils % 1.1 %; HCT 46.1 % (40.0-50.0); HGB 15.5 g/dL (13.5-17.5); Immature Grans % 0.3 %; Lymphocytes % 18.6 %; MCH 28.1 pg (27.0-33.0); MCHC 33.6 % (32.0-36.0); MCV 84 fL (80-95); MPV 9.7 fL (8.0-11.0); Monocytes % 6.6 %; Platelet Count 252 10^3/uL (130-400); RBC 5.51 10^6/uL (4.36-5.78); RDW 12.9 % (11.8-14.1); RDW-SD 39.3 fL; WBC 7.42 10^3/uL (4.4-10.8)
[2024-02-02 13:07] LABS: *AMPHETAMINES SCREEN URINE Negative (Negative); *BARBITURATES SCREEN URINE Negative (Negative); *BENZODIAZEPINES SCREEN URINE Negative (Negative); Cannabinoids THC Negative (Negative); Cocaine Screen,Urine Positive (Negative); Hemoglobin A1C 5.4 % (<5.7); METHADONE URINE SCREEN Negative (Negative); OPIATES URINE SCREEN Positive (Negative)
[2024-02-02 13:08] LABS: Tricyclic Antidepressants Negative (Negative)
[2024-02-02 13:37] LABS: ALT 58 U/L (16-63); AST 46 U/L (15-37); Alkaline Phosphatase 83 U/L (46-116); Anion Gap 5.4 mmol/L (3-11); BUN 10 mg/dL (7-18); Bilirubin, Total 0.42 mg/dL (0.2-1.0); CO2 32.6 mmol/L (21.0-32.0); CREATININE 0.7 mg/dL (0.70-1.30); Calcium 9.2 mg/dL (8.5-10.1); Calculated LDL 100 mg/dL (<100); Chloride 102 mmol/L (98-107); Cholesterol 188 mg/dL (<200); Estimated GFR 121.71 (mL/min/1.73m2); Glucose 122 mg/dL (74-106); HDL Cholesterol 78 mg/dL (40-60); Potassium 3.9 mmol/L (3.5-5.1); Sodium 140 mmol/L (136-145); TSH (W/Ref FT4) 1.83 uIU/mL (0.36-3.74); Triglyceride 53 mg/dL (<150); Vitamin B12 317 pg/mL (193-986); Vitamin D 25 Total 33.3 ng/mL (30-100)
[2024-02-03 10:17] LABS: HIV-1/2 Ag & Ab Screen Negative (Negative)
[2024-02-03 10:38] LABS: Syphilis Serology (RPR) Negative (Negative)
[2024-02-03 11:03] LABS: Hepatitis A Antibody IgM Negative (Negative); Hepatitis B Core Antibody Negative (Negative); Hepatitis B surface Ag Negative (Negative); Hepatitis C Ab w Rflx HCV PCR Reactive (Negative)
[2024-02-03 13:23] LABS: Chlamydia Result Negative (Negative); GC Result Negative (Negative)
[2024-02-03 14:25] LABS: Xylazine, Confirmation Urine > 2000 ng/mL (<50)
[2024-02-03 15:09] LABS: Fentanyl Scr w/Rfx Confirm Positive ng/mL (<1)
[2024-02-09 12:50] LABS: HCV RNA Detection Quantitative 164000 IU/mL (Undetected); HCV RNA Qualitative Detected (Undetected)
[2024-02-09 13:03] LABS: Fentanyl Confirmation >40 ng/mL (<2)
[2024-02-09 13:06] LABS: Norfentanyl Confirmation >200 ng/mL (<10)
== END 2024-02-02 12:37 | disposition home or self-care (01) ==
LOC: LBO 12:36
PROVIDERS: PCP Family Medicine; Visit Provider Nurse Practitioner Family
DX: E55.9 Vitamin D deficiency, unspecified (principal); D51.3 Other dietary vitamin B12 deficiency anemia; F11.90 Opioid use, unspecified, uncomplicated; Z00.00 Encounter for general adult medical examination without abnormal findings
CPT/HCPCS: 36415; 80053; 80061; 80307; 80354; 80375; 82306; 86704; 86709; 86803; 87340; 87389; 87491; 87522; 87591; 82607; 83036; 84443; 85025; 86592

== ENCOUNTER 2024-04-06 20:11 | Emergency (ER) | payer MEDICAID, SELFPAY ==
[2024-04-06 20:17] VITALS: BP 147/84; PULSE 100; RESP 15; TEMP 37.2; O2SAT 93
--- NOTE | 2024-04-06 20:41 | ED.GENADUL_ITS ---
Discharge Plan Disposition Patient Disposition: Home Condition: Stable Discharge Details Clinical Impression: Bleeding from varicose vein Primary Care Provider: Didier Garcia ED Provider: Janet Santizo Home Meds and New Rx's Prescriptions: Continued sertraline [Zoloft] 100 mg tablet 150 mg PO DAILY Qty: 135 4RF Rx Instructions: 150MG DAILY doxycycline hyclate 100 mg capsule 100 mg PO BID Qty: 20 0RF Discharge Instructions Instructions: Treatment of Varicose Veins of the Leg Additional Instructions: Wear compression stockings in 3 to 4 days Give a pressure dressing on this for the next 24 hours The glue will come off on its own, do not scrub or try to remove glue as it may cause bleeding to recur Return should you have new or worsening complaints Referrals: Didier Garcia MD [Primary Care Provider] - HPI General Date/Time Provider Initiated Documentation: 04/06/24 20:24 . HPI Narrative: This 39-year-old male with history of drug abuse and dependence presents with report of bleeding area to left lateral leg. He states he scratched a vessel in his lateral leg and it started bleeding. States tetanus is up-to-date. Denies any specific trauma. Denies any history of coagulopathy. Related Data Home Medications ?Medication ?Instructions ?Recorded ?Confirmed sertraline 100 mg tablet (Zoloft) 150 mg (1.5 x 100 mg) PO DAILY 06/11/22 04/06/24 #135 tab-caps doxycycline hyclate 100 mg capsule 100 mg PO BID #20 caps 10/24/23 04/06/24 Previous Rx's ?Medication ?Instructions ?Recorded sertraline 100 mg tablet (Zoloft) 150 mg (1.5 x 100 mg) PO DAILY 06/11/22 #135 tab-caps doxycycline hyclate 100 mg capsule 100 mg PO BID #20 caps 10/24/23 Allergies Allergy/AdvReac Type Severity Reaction Status Date / Time No Known Allergies Allergy Verified 04/06/24 20:22 General Stated Complaint: Laceration [place]: 4 Exam Narrative Exam Narrative: Left lateral leg with bleeding varicose vein, neurovascularly intact Course Vital Signs Vital signs: Vital Signs Temperature 37.2 C 04/06/24 20:17 Pulse 100 H 04/06/24 20:17 Respiratory Rate 15 04/06/24 20:17 Blood Pressure 147/84 H 04/06/24 20:17 Pulse Oximetry 93 04/06/24 20:17 Temperature 37.2 C 04/06/24 20:17 Pulse 100 H 04/06/24 20:17 Respiratory Rate 15 04/06/24 20:17 Respiratory Effort Normal 04/06/24 20:20 Blood Pressure 147/84 H 04/06/24 20:17 Blood Pressure Position Sitting 04/06/24 20:17 Pulse Oximetry 93 04/06/24 20:17 Oxygen Delivery Method Room Air 04/06/24 20:17 Oxygen Flow Rate 0 04/06/24 20:17 Pain Level 0 04/06/24 20:17 Medical Decision Making Left lateral leg with bleeding vein, glue was applied and pressure dressing and patient was discharged home in stable condition with stable vitals Quality:SDOH Health Related Social Needs: No Data to Display PFSH All Active Problems (Updated 04/06/24 @ 20:42 by WILL Gonzalez) Bleeding from varicose vein (Acute) Drug abuse and dependence (Acute) Sleep apnea with use of continuous positive airway pressure (CPAP) (Acute ~03/2018) Leg pain (Acute) Cellulitis of leg, left (Acute) Allergic dermatitis due to poison [place] (Acute) Cellulitis of shaft of penis (Acute) Viral URI (Acute) Back muscle spasm (Acute) Low back pain (Acute) Alcohol use (Acute) Anxiety (Acute) Attention deficit hyperactivity disorder (Acute) Undiagnosed cardiac murmurs (Acute) Depressive disorder (Acute) History of intravenous drug abuse (Acute 11/28/17) Opioid dependence (Acute) Medical History IV drug abuse Family History Mother Alcohol abuse Father Alcohol abuse Essential hypertension Depression Sister Asthma Brother No problems noted. Grandfather Hyperlipidemia Neoplasm Social History Smoking/Tobacco Use Status: Current every day Tobacco Type: cigarettes Tobacco: How many years used: 15 Smoking risk assessment performed?: Yes Alcohol Intake: current Alcohol Intake frequency: a few times a week Alcohol type: beer Drug use: Daily Substance use type: marijuana, crack/cocaine, heroin and other Details: Clinic for heroine with occassional use. Occassional use of cocaine. Do you feel safe at home: Yes Do you feel safe in your relationship?: Yes PAWSS Have you Been Recently Intoxicated or Drunk Within the Last 30 days?: No Have you Ever Experienced Previous Episodes of Alcohol Withdrawal?: No Have you ever Experienced Withdrawal Seizures?: No Have you ever Experienced Delirium Tremens(DT)s?: No Have you ever undergone Alcohol Rehabilitation Treatment (i.e, inpt ot outpatient treatment programs)?: No Have you ever Experienced Blackouts?: No Have you ever Combined Alcohol with other Downers within the last 90 days?: No Have you ever Combined Alcohol with any other Substance of Abuse during the last 90 days?: Yes Positive Blood Alcohol level on Presentation? [PCS.BAL]: No Evidence of Increased Autonomic Activity (i.e. HR>120, tremor, sweating, agitation, nausea)?: No Result: 2
[2024-04-06 20:55] VITALS: BP 147/84; PULSE 92; RESP 16; TEMP 37.2; O2SAT 95
--- NOTE | 2024-04-06 20:55 | NUR.NOTE ---
Nursing Note: this service writer applied pressure dressing over nonstick telfa pad after wound glue was dry. Provided pt with extra dressing for change tomorrow.
== END 2024-04-06 20:57 | disposition home or self-care (01) ==
LOC: ER 21:34
PROVIDERS: Emergency Provider Physician Assistant; PCP Family Medicine
DX: I83.892 Varicose veins of left lower extremity with other complications (principal); R22.43 Localized swelling, mass and lump, lower limb, bilateral; F17.210 Nicotine dependence, cigarettes, uncomplicated
CPT/HCPCS: 12001; 99283

== ENCOUNTER 2024-04-18 02:38 | Emergency (ER) | payer MEDICAID, SELFPAY ==
[2024-04-18] VITALS (19 sets, daily range): BP systolic 132; BP diastolic 62–90; PULSE 81–101; RESP 11–25; TEMP 36.9–38.9; O2SAT 78–100
[2024-04-18 03:11] LABS: Lactate 1.2 mmol/L (0.6-1.4)
[2024-04-18 03:16] LABS: Abs Immature Grans 0.08 10^3/uL (0.0-0.06); Absolute Lymphocyte Count 0.98 10^3/uL (1.2-3.4); Absolute Neutrophil Count 14.35 10^3/uL (1.2-6.7); Basophils % 0.4 %; HCT 37.1 % (40.0-50.0); HGB 12.6 g/dL (13.5-17.5); Immature Grans % 0.5 %; Lymphocytes % 5.9 %; MCH 28.8 pg (27.0-33.0); MCV 85 fL (80-95); MPV 9.5 fL (8.0-11.0); Monocytes % 6.6 %; Neutrophils % 86.6 %; Platelet Count 231 10^3/uL (130-400); RBC 4.37 10^6/uL (4.36-5.78); RDW 13.3 % (11.8-14.1); RDW-SD 41.2 fL; WBC 16.57 10^3/uL (4.4-10.8)
[2024-04-18 03:18] LABS: Absolute Basophil Count 0.07 10^3/uL (0.0-0.2); Absolute Monocyte Count 1.09 10^3/uL (0.1-0.8)
[2024-04-18] MEDS: CLINDAMYCIN 600 MG/50 ML BAG 100 MG IVPB (03:20)
[2024-04-18] MEDS: Lactated Ringers 1,000 ML 1000 ML IV (03:21)
[2024-04-18] MEDS: Ketorolac 15 MG/ML VIAL IVP (03:21)
[2024-04-18] MEDS: ACETAMINOPHEN 1,000 MG/100 ML BTL 400 MG IVPB (03:22)
[2024-04-18 03:24] LABS: Chloride 97 mmol/L (98-107); Potassium 3.7 mmol/L (3.5-5.1); Sodium 134 mmol/L (136-145)
--- NOTE | 2024-04-18 03:28 | ED.GENADUL_ITS ---
Discharge Plan Disposition Patient Disposition: Home Condition: Good Discharge Details Clinical Impression: Cellulitis of left leg Primary Care Provider: Didier Garcia ED Provider: René Inman Home Meds and New Rx's Prescriptions: New clindamycin HCl 150 mg capsule 450 mg PO Q6H 7 Days Qty: 84 0RF Discharge Instructions Instructions: Cellulitis (Skin Infection), Adult ED Additional Instructions: You have an infection on the skin for your left roblero. Please take the antibiotic as directed. Please take this with a probiotic to prevent any diarrhea. If you notice any worsening of your symptoms, or any new symptoms such as vomiting, diarrhea, fever, chills, shortness of breath, chest pain, numbness, weakness, or fainting , please return immediately to the emergency department for reevaluation. Please follow up with your primary care provider as soon as possible for reassessment and reevaluation. As always, it was a pleasure participating in your medical care today. Referrals: Didier Garcia MD [Primary Care Provider] - [facility] General Date/Time Provider Initiated Documentation: 04/18/24 02:39 . HPI Narrative: 39-year-old male with a past medical history of IV drug use, presents today for left lower extremity redness swelling and fever. Patient states that he does use IV drugs regularly but only injects in the arms. 12 days ago he had an area that was scraped and had subsequent significant bleeding. Dermabond was applied over that area and it healed well. Unfortunately over the last 24 to 48 hours he developed redness, swelling, worsening pain. He admits to fevers and chills. He denies any other complaints at this time. Related Data Home Medications ?Medication ?Instructions ?Recorded ?Confirmed clindamycin HCl 150 mg capsule 450 mg (3 x 150 mg) PO Q6H 7 days 04/18/24 #84 caps Previous Rx's ?Medication ?Instructions ?Recorded clindamycin HCl 150 mg capsule 450 mg (3 x 150 mg) PO Q6H 7 days 04/18/24 #84 caps Allergies Allergy/AdvReac Type Severity Reaction Status Date / Time No Known Allergies Allergy Verified 04/18/24 02:53 General Stated Complaint: Fever [place]: 3 Review of Systems All systems reviewed & are unremarkable except as noted in HPI and below Exam Narrative Exam Narrative: 1.Const: Well-nourished, Well-developed, appearing stated age 2.Eyes: PERRL, no conjunctival injection, and symmetrical lids. 3.ENT: Atraumatic external nose and ears. Moist MM. Neck: Symmetric, trachea midline, No thyromegaly. 4.CVS: +S1/S2, No murmurs or gallops. Peripheral pulses 2+ and equal in all extremities. Brisk capillary refill in all extremities. 5.RESP: Unlabored respiratory effort. Clear to auscultation bilaterally. No whe ezes rales or rhonchi 6.GI: Soft, Nontender/Nondistended, No hepatosplenomegaly. No guarding or rebound. 7.MSK: Normocephalic/Atraumatic, Extremities w/o deformity or ttp No cyanosis or clubbing, Normal movement of all extremities 8.Skin: Left flank demonstrates mild swelling tenderness edema and erythema over the anterior lateral roblero. No active bleeding. No subcutaneous crepitus. Minimal calf tenderness. Dorsalis pedis and posterior tibial pulse +2 bilaterally. Brisk capillary refill is present in all toes, good sensation throughout. No active leaking or drainage from the roblero. 9.Neuro: rehabilitation consultant II-XII grossly intact. Sensation grossly intact, no focal neurologic deficits. 10.Psych: (AAO) x3. Appropriate mood and affect Course Vital Signs Vital signs: Vital Signs Temperature 38.9 C H 04/18/24 02:41 Pulse 98 H 04/18/24 02:41 Respiratory Rate 16 04/18/24 02:41 Blood Pressure 132/62 04/18/24 02:41 Pulse Oximetry 96 04/18/24 02:41 Temperature 38.9 C H 04/18/24 02:49 Temperature Source Temporal Artery Scan 04/18/24 02:49 Pulse 101 H 04/18/24 02:49 Respiratory Rate 19 04/18/24 02:49 Respiratory Effort Normal 04/18/24 02:49 Blood Pressure 132/62 04/18/24 02:49 Blood Pressure Position Sitting 04/18/24 02:41 Pulse Oximetry 94 04/18/24 02:49 Oxygen Delivery Method Room Air 04/18/24 02:49 Oxygen Flow Rate 0 04/18/24 02:41 Pain Level 6 04/18/24 02:49 Lab/Test Results Lab/Test Results: 04/18/24 03:09 Blood Blood Culture - Pending 04/18/24 03:00 Blood Blood Culture - Pending Laboratory Tests Range/Units 04/18/24 04/18/24 03:00 03:09 WBC (4.4-10.8) 10^3/uL 16.57 H RBC (4.36-5.78) 10^6/uL 4.37 Hgb (13.5-17.5) g/dL 12.6 L Hct (40.0-50.0) % 37.1 L MCV (80-95) fL 85 MCH (27.0-33.0) pg 28.8 MCHC (32.0-36.0) % 34.0 RDW (11.8-14.1) % 13.3 Plt Count (130-400) 10^3/uL 231 MPV (8.0-11.0) fL 9.5 Immature Gran % % 0.5 Neutrophils % % 86.6 Lymphocytes % % 5.9 Monocytes % % 6.6 Eosinophils % % 0.0 Basophils % % 0.4 Nucleated RBC % (0.0-0.3) % 0.0 Absolute Neutrophils (1.2-6.7) 10^3/uL 14.35 H Absolute Lymphocytes (1.2-3.4) 10^3/uL 0.98 L Absolute Monocytes (0.1-0.8) 10^3/uL 1.09 H Absolute Eosinophils (0.0-0.7) 10^3/uL 0.00 Absolute Basophils (0.0-0.2) 10^3/uL 0.07 VBG Lactate (0.6-1.4) mmol/L 1.2 Medical Decision Making 39-year-old male with a past medical history of IV drug use, presents today for left lower extremity redness swelling and fever. Patient states that he does use IV drugs regularly but only injects in the arms. 12 days ago he had an area on the left roblero that was scraped and had subsequent significant bleeding. Dermabond was applied over that area and it healed well. Unfortunately over the last 24 to 48 hours he developed redness, swelling, worsening pain. He admits to fevers and chills. He denies any other complaints at this time. Exam demonstrates redness erythema and edema over the left roblero. No active drainage. Patient is febrile. Concern for cellulitis as a cause of his symptoms, bacteremia and sepsis is also on the differential. He denies any cough, dysuria, or other complaints. Pneumonia and UTI notably less likely. No headache or neck pain to suggest meningitis. Bedside limited ultrasound was performed, no evidence of significant DVT is noted. Differential is highest for cellulitis causing sepsis. We will rehydrate with a liter of lactated Ringer's, give 600 mg of clindamycin, treat patient's pain and fever with Tylenol and Toradol, monitor closely and reassess. 6 AM Patient feeling much better, laboratory workup shows a white count of 16 and left shift but no bandemia. Fever resolved, heart rate improved. No evidence of active sepsis or sepsis shock currently. Lactate normal. Electrolytes normal. Urinalysis negative for infection, COVID flu and RSV negative. Suspect symptomatology is secondary to cellulitis on his left lower extremity. Symptoms inconsistent with necrotizing fasciitis. Will send prescription of clindamycin for home use. Patient has received a full dose of clindamycin here. He has been rehydrated with 1500 cc. Patient stable for discharge. I have extensively reviewed the treatment plan and discharge instructions with the patient. I have addressed all patient concerns at this time. The patient was made aware of what symptoms to monitor for that would warrant a return to the emergency department. Discussed the plan with the patient, they demonstrate verbal understanding and agreement with our assessment and plan at this time. The documentation in this chart was dictated using [employer] dictation software. Please excuse any dictation errors. Quality:SDOH Health Related Social Needs: No Data to Display PFSH All Active Problems (Updated 04/18/24 @ 05:16 by René Inman DO) Cellulitis of left leg (Acute) Bleeding from varicose vein (Acute) Drug abuse and dependence (Acute) Sleep apnea with use of continuous positive airway pressure (CPAP) (Acute ~03/2018) Leg pain (Acute) Cellulitis of leg, left (Acute) Allergic dermatitis due to poison [place] (Acute) Cellulitis of shaft of penis (Acute) Viral URI (Acute) Back muscle spasm (Acute) Low back pain (Acute) Alcohol use (Acute) Anxiety (Acute) Attention deficit hyperactivity disorder (Acute) Undiagnosed cardiac murmurs (Acute) Depressive disorder (Acute) History of intravenous drug abuse (Acute 05/04/18) Opioid dependence (Acute) Medical History IV drug abuse Family History Mother Alcohol abuse Father Alcohol abuse Essential hypertension Depression Sister Asthma Brother No problems noted. Grandfather Hyperlipidemia Neoplasm Social History Smoking/Tobacco Use Status: Current every day Tobacco Type: cigarettes Tobacco: How many years used: 15 Smoking risk assessment performed?: Yes Alcohol Intake: current Alcohol Intake frequency: a few times a week Alcohol type: beer Drug use: Daily Substance use type: marijuana, crack/cocaine, heroin and other Details: Clinic for heroine with occassional use. Occassional use of cocaine. Do you feel safe at home: Yes Do you feel safe in your relationship?: Yes PAWSS Have you Been Recently Intoxicated or Drunk Within the Last 30 days?: Yes Have you Ever Experienced Previous Episodes of Alcohol Withdrawal?: Yes Have you ever Experienced Withdrawal Seizures?: No Have you ever Experienced Delirium Tremens(DT)s?: No Have you ever undergone Alcohol Rehabilitation Treatment (i.e, inpt ot outpatient treatment programs)?: Yes Have you ever Experienced Blackouts?: No Have you ever Combined Alcohol with other Downers within the last 90 days?: Yes Have you ever Combined Alcohol with any other Substance of Abuse during the last 90 days?: Yes Positive Blood Alcohol level on Presentation? [PCS.BAL]: Unable to Obtain Evidence of Increased Autonomic Activity (i.e. HR>120, tremor, sweating, agitation, nausea)?: Yes Result: 6 POCUS Exam (ED) Limited Vascular Exam DATE OF EXAM: 04/18/24 TIME OF EXAM: 03:32 PROVIDER THAT PERFORMED THE STUDY: René Inman IS THIS A REPEAT EXAM DURING THIS ENCOUNTER: No Vascular Exam: Left lower extremity REASON FOR EXAM: Concern for DVT left lower extremity VISUALIZED STRUCTURES: Left popliteal vein, Left superficial femoral vein and Left greater saphenous vein PERTINENT FINDINGS/IMPRESSION: No apparent abnormalities Exam Complete
[2024-04-18 03:40] LABS: ALT 44 U/L (16-63); AST 29 U/L (15-37); Albumin 3.1 g/dL (3.4-5.0); Alkaline Phosphatase 61 U/L (46-116); Anion Gap 9.8 mmol/L (3-11); BUN 11 mg/dL (7-18); Bilirubin, Total 1.14 mg/dL (0.2-1.0); CO2 27.2 mmol/L (21.0-32.0); Calcium 8.5 mg/dL (8.5-10.1); Estimated GFR 99.41 (mL/min/1.73m2); Glucose 159 mg/dL (74-106)
[2024-04-18] MEDS: Normal Saline 500 ML IV (03:48)
[2024-04-18 03:55] LABS: COVID-19 PCR Negative (Negative); Influenza A PCR Negative (Negative); Influenza B PCR Negative (Negative); RSV PCR Negative (Negative)
[2024-04-18 03:56] LABS: Source Nasopharynx
[2024-04-18 04:02] LABS: Procalcitonin 5.4 ng/mL
[2024-04-18 05:10] LABS: Bilirubin Negative (Negative); Blood Negative (Negative); Clarity Clear (Clear); Glucose Negative (Negative); Ketones 15 mg/dL (Negative); Leukocyte Esterase Negative (Negative); Nitrite Negative (Negative); pH 7.5 (5-8)
== END 2024-04-18 05:29 | disposition home or self-care (01) ==
PROVIDERS: Emergency Provider Student in an Organized Health Care Education/Training Program; PCP Family Medicine
DX: L03.116 Cellulitis of left lower limb (principal); F19.90 Other psychoactive substance use, unspecified, uncomplicated; F17.210 Nicotine dependence, cigarettes, uncomplicated
CPT/HCPCS: 36415; 80053; 84145; 87040; 87637; 93971; 96361; 96374; 96375; 99284; 81003; 83605; 85025; J0131; J0737; J1885

== ENCOUNTER 2024-04-20 15:45 | Emergency (ER) | payer MEDICAID, SELFPAY ==
[2024-04-20 15:53] VITALS: BP 120/69; PULSE 91; RESP 18; TEMP 36.7; O2SAT 92
[2024-04-20 15:58] VITALS: BP 120/69; PULSE 91; RESP 18; TEMP 36.7; O2SAT 92
--- NOTE | 2024-04-20 16:02 | W.ED.GENAD ---
Discharge Plan Disposition Patient Disposition: Home Condition: Stable Discharge Details Clinical Impression: Cellulitis of leg, left Primary Care Provider: Didier Garcia ED Provider: René Cisneros Home Meds and New Rx's Prescriptions: New mupirocin 2 % ointment 1 applic topical BID Qty: 15 0RF chlorhexidine gluconate 4 % liquid 1 applic topical BID 5 Days Qty: 3800 0RF Rx Instructions: use as shower soap twice per day for 5 days; then once every 3-4 days going forward Continued clindamycin HCl 150 mg capsule 450 mg PO Q6H 7 Days Qty: 84 0RF Discharge Instructions Instructions: Chlorhexidine Gluconate (Topical), Mupirocin, Cellulitis (Skin Infection), Adult ED Additional Instructions: You were seen in the emergency department for your continued cellulitis of your left leg, you have received 2 doses of your clindamycin, you usually takes until day 3 on antibiotics to see improvement. Please continue your clindamycin, have also sent prescription for topical antibiotic to place on any sores that are developing on your legs called mupirocin, apply this twice per day and then a clean bandage over the top of it. I have sent you a prescription strength antiseptic soap, use this in the shower, lather your entire body and let it sit for about 2 minutes before rinsing off, do this twice per day for 5 days for initial decolonization of staph bacteria on your skin, I would keep the rest of this open use intermittently once every 3 to 4 days instead of your normal shower soap going forward. Talk to your primary care provider about seeking a wound care referral as you are likely to develop further leg ulcerations due to your IV drug use history Referrals: Didier Garcia MD [Primary Care Provider] - HPI General Date/Time Provider Initiated Documentation: 04/20/24 15:47. HPI Narrative: 39 year-old male presents to ED today by POV/ambulating with a chief complaint of re-check for L lower leg cellulitis seen 2 days ago and started on clindamycin. Quality described as developed a bullae or blister that ruptured, draining scant serous fluid, just was concerned for this if it needed any new interventions, no radiation to increasing swelling, fever, red streaking, tachycardia. Severity is described as moderate. Palliating factors include has only taken 2 doses of clindamycin- should be on dose 5-6 right now. Provoking factors include nothing specific, history of IVDU. Patient not anticoagulated. Related Data Home Medications ?Medication ?Instructions ?Recorded ?Confirmed clindamycin HCl 150 mg capsule 450 mg (3 x 150 mg) PO Q6H 7 days 04/18/24 04/20/24 #84 caps chlorhexidine gluconate 4 % 1 applic topical BID 5 days #3,800 04/20/24 topical liquid mL mupirocin 2 % topical ointment 1 applic topical BID #15 grams 04/20/24 Previous Rx's ?Medication ?Instructions ?Recorded clindamycin HCl 150 mg capsule 450 mg (3 x 150 mg) PO Q6H 7 days 04/18/24 #84 caps chlorhexidine gluconate 4 % 1 applic topical BID 5 days #3,800 04/20/24 topical liquid mL mupirocin 2 % topical ointment 1 applic topical BID #15 grams 04/20/24 Allergies Allergy/AdvReac Type Severity Reaction Status Date / Time No Known Allergies Allergy Verified 04/20/24 15:58 General Stated Complaint: Cellulitis [place]: 3 Review of Systems All systems reviewed & are unremarkable except as noted in HPI and below Exam Narrative Exam Narrative: GENERAL APPEARANCE: Well-nourished, non-toxic, awake and alert, atraumatic, no acute distress. SKIN: Warm, pink, dry, diffuse swelling of the left lower extremity with erythema, no lymphadenitis spreading outward from his left lateral calf cellulitis, he did have a bullae about 3 cm across and it popped he is scant serous drainage from this area with no sign of gross abscess, neurovascularly intact distal HEAD: Normocephalic, atraumatic, normal hair distribution for gender/age. EYES: Normal conjunctiva, no exudates on lids/lashes. ENT: Nares patent, no circumoral cyanosis, no facial swelling NECK: Supple, trachea midline, painless cervical ROM. LUNGS/CHEST: Non-labored respirations, normal A/P diameter, symmetrical expansion, no chest wall deformity HEART (CV/PV): No peripheral edema, no JVD. ABDOMEN: Soft, non-distended, no guarding. MSK: Normal ROM, no swelling/deformity to bilateral UEs or LEs, moving all extremities without weakness, no cyanosis, spine midline without tenderness, normal curvature. NEURO: Mental Status AAOx4 - alert to person, place, time, events No facial droop, no forehead involvement. Motor: No focal weakness - strength 5/5 in bilateral UEs and LEs, proximal and distal, symmetric. Sensory: sensation intact to light touch globally. Gait antalgic. PSYCH: euthymic, cooperative, pleasant, appropriate speech Course Vital Signs Vital signs: Vital Signs Temperature 36.7 C 04/20/24 15:53 Pulse 91 H 04/20/24 15:53 Respiratory Rate 189 H 04/20/24 15:53 Blood Pressure 120/69 04/20/24 15:53 Pulse Oximetry 92 04/20/24 15:53 Temperature 36.7 C 04/20/24 15:58 Pulse 91 H 04/20/24 15:58 Respiratory Rate 189 H 04/20/24 15:58 Respiratory Effort Normal, Non-Labored 04/20/24 15:58 Blood Pressure 120/69 04/20/24 15:58 Blood Pressure Position Sitting 04/20/24 15:58 Pulse Oximetry 92 04/20/24 15:58 Oxygen Delivery Method Room Air 04/20/24 15:58 Oxygen Flow Rate 0 04/20/24 15:58 Medical Decision Making This dictation utilizes [id number] dictation software and may contain unedited grammatical errors. 39 year-old male presents to ED today by POV/ambulating with a chief complaint of re-check for L lower leg cellulitis seen 2 days ago and started on clindamycin. Quality described as developed a bullae or blister that ruptured, draining scant serous fluid, just was concerned for this if it needed any new interventions, no radiation to increasing swelling, fever, red streaking, tachycardia. Severity is described as moderate. Palliating factors include has only taken 2 doses of clindamycin- should be on dose 5-6 right now. Provoking factors include nothing specific, history of IVDU. Patients' medical history: History of IV drug use, alcohol use, low back pain and spasm. Family and social history: States he is only had IV drug use in his arms, does not equate upper extremity use with possibility of lower extremity ulcerations, denies sick contacts or recent travel. Pertinent exam findings / vital signs include gross swelling to the left calf with redness and a popped bullae about 3 cm across that is draining scant serous fluid, no gross abscess, no severe circumferential cellulitis, neurovascular intact distal and able to ambulate with significant pain. Differential / pathologies of concern include cellulitis, not developing abscess, unlikely sepsis. Diagnostic studies of: -None. Interventions of: -Added mupirocin and chlorhexidine to his prescription regimen. -patient requested crutches as he walks a lot and it hurts to walk on his leg ED Course/Assessment/Plan: 39-year-old male with cellulitis has not been adequately treating with clindamycin, and has been 2 days since his visit and he is only taken 2 doses of his p.o. antibiotic, should be on dose 5 or 6 by now. I counseled him that there is no intervention needed for scantly draining blister that had popped, recommend topical mupirocin and clean dressings as well as chlorhexidine to decolonize himself in the shower, recommend he continue his clindamycin as directed, strict return criteria for severe increase in pain, fever, red streaking up his leg from the site. Findings not consistent with lymphadenitis or sepsis, circumferential cellulitis, neurovascular compromise, gross abscess. Disposition of cellulitis of leg, left. Patient verbalized understanding of the plan and return to ED criteria and engaged in shared decision making. Medical Records Medical records reviewed: Yes I reviewed the patient's medical records. Quality:[facility] Health Related Social Needs: No Data to Display [facility] All Active Problems (Updated 04/20/24 @ 16:08 by WILL Al) Cellulitis of left leg (Acute) Bleeding from varicose vein (Acute) Drug abuse and dependence (Acute) Sleep apnea with use of continuous positive airway pressure (CPAP) (Acute ~03/2018) Leg pain (Acute) Cellulitis of leg, left (Acute) Allergic dermatitis due to poison [place] (Acute) Cellulitis of shaft of penis (Acute) Viral URI (Acute) Back muscle spasm (Acute) Low back pain (Acute) Alcohol use (Acute) Anxiety (Acute) Attention deficit hyperactivity disorder (Acute) Undiagnosed cardiac murmurs (Acute) Depressive disorder (Acute) History of intravenous drug abuse (Acute 11/28/17) Opioid dependence (Acute) Medical History IV drug abuse Family History Mother Alcohol abuse Father Alcohol abuse Essential hypertension Depression Sister Asthma Brother No problems noted. Grandfather Hyperlipidemia Neoplasm Social History Smoking/Tobacco Use Status: Current every day Tobacco Type: cigarettes Tobacco: How many years used: 15 Smoking risk assessment performed?: Yes Alcohol Intake: current Alcohol Intake frequency: a few times a week Alcohol type: beer Drug use: Daily Substance use type: marijuana, crack/cocaine, heroin and other Details: Clinic for heroine with occassional use. Occassional use of cocaine. Do you feel safe at home: Yes Do you feel safe in your relationship?: Yes
== END 2024-04-20 16:24 | disposition home or self-care (01) ==
PROVIDERS: Emergency Provider Physician Assistant; PCP Family Medicine
DX: L03.116 Cellulitis of left lower limb (principal); Z87.898 Personal history of other specified conditions
CPT/HCPCS: 99283

== ENCOUNTER 2024-04-26 17:31 | Emergency (ER) | payer MEDICAID, SELFPAY ==
[2024-04-26 17:36] VITALS: BP 131/80; PULSE 94; RESP 16; TEMP 36.6; O2SAT 95
--- NOTE | 2024-04-26 18:51 | ED.GENADUL_ITS ---
Discharge Plan Disposition Patient Disposition: Admit to [facility] Condition: Good Discharge Details Clinical Impression: Cellulitis of left leg, Heart murmur Primary Care Provider: Didier Garcia ED Provider: René Inman Home Meds and New Rx's Prescriptions: No Action mupirocin 2 % ointment 1 applic topical BID Qty: 15 0RF HPI General Date/Time Provider Initiated Documentation: 04/26/24 17:34 . HPI Narrative: This is a 39-year-old male with a past medical history of IV drug use, previously diagnosed cardiac murmur, who presents today for cellulitis of the left lower extremity. Patient states that he uses IV drugs regularly, a couple times a day but only injects in the arms. 20 days ago he had an area that was scraped and had subsequent significant bleeding. Dermabond was applied at that time and it healed well, the day or so after that he began to develop redness and swelling. He came to the ER and was seen and assessed by myself 12 days later on 04/18/2024 where he had evidence of cellulitis. He was started on clindamycin at that time. 450 mg every 6 hours for 7 days. He was also given a to go bottle which had a few doses in it as well. 2 days later the patient had a large blister that was about 7 or 8 cm x 4 cm. He came back to the ER when that popped, and was also prescribed clindamycin wash and mupirocin. Since then the patient states he has still been taking the antibiotics as directed. Despite this the swelling and redness in the left lower extremity has worsened and increased to encompass the entire left lower extremity extending up towards the knee. No pain in the knee itself. He does admit to chills. No active fevers. He denies any IV drug use in the leg since the initial diagnosis. He has no other complaints at this time. He admits to mild pain and achiness in the leg. No chest pain or shortness of breath though. Related Data Home Medications ?Medication ?Instructions ?Recorded ?Confirmed mupirocin 2 % topical ointment 1 applic topical BID #15 grams 04/20/24 Previous Rx's ?Medication ?Instructions ?Recorded mupirocin 2 % topical ointment 1 applic topical BID #15 grams 09/24/24 Allergies Allergy/AdvReac Type Severity Reaction Status Date / Time No Known Allergies Allergy Verified 04/20/24 15:58 General Stated Complaint: RashLesion [place]: 3 Review of Systems All systems reviewed & are unremarkable except as noted in HPI and below Exam Narrative Exam Narrative: 1.Const: Well-nourished, Well-developed, appearing stated age 2.Eyes: PERRL, no conjunctival injection, and symmetrical lids. 3.ENT: Atraumatic external nose and ears. Moist MM. Neck: Symmetric, trachea midline, No thyromegaly. 4.CVS: +S1/S2, positive murmurs noted. Peripheral pulses 2+ and equal in all extremities. Brisk capillary refill in all extremities. 5.RESP: Unlabored respiratory effort. Clear to auscultation bilaterally. No wheezes rales or rhonchi 6.GI: Soft, Nontender/Nondistended, No hepatosplenomegaly. No guarding or rebound. 7.MSK: Bilateral edema in the lower extremities. Roughly +1 to +2 on the right, +3 on the left. Moderate erythema throughout the entirety of the left lower extremity from the knee and below. Chronic hemosiderin staining is also present. There is an active large blister that ruptured on the left calf, which demonstrates some granulomatous tissue with healing, but definitely also cellulitis and some purulent discharge in that area as well. Mild tenderness throughout. Dorsalis pedis and posterior tibial pulse are palpable. There is also some mild erythema extending towards the medial aspect of the knee with some firmness and swelling there as well. 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 Sensation grossly intact, no focal neurologic deficits. 10.Psych: (AAO) x3. Appropriate mood and affect Course Vital Signs Vital signs: Vital Signs Temperature 36.6 C 04/26/24 17:36 Pulse 94 H 04/26/24 17:36 Respiratory Rate 16 04/26/24 17:36 Blood Pressure 131/80 04/26/24 17:36 Pulse Oximetry 95 04/26/24 17:36 Temperature 36.6 C 04/26/24 17:36 Temperature Source Tympanic 04/26/24 17:36 Pulse 94 H 04/26/24 17:36 Respiratory Rate 16 04/26/24 17:36 Blood Pressure 131/80 04/26/24 17:36 Blood Pressure Position Sitting 04/26/24 17:36 Pulse Oximetry 95 04/26/24 17:36 Oxygen Delivery Method Room Air 04/26/24 17:36 Oxygen Flow Rate 0 04/26/24 17:36 Pain Level 6 04/26/24 17:36 Lab/Test Results Lab/Test Results: 04/26/24 18:09 Blood Blood Culture - Pending 04/26/24 18:09 Blood Blood Culture - Pending Medical Decision Making This is a 39-year-old male with a past medical history of IV drug use, previously diagnosed cardiac murmur, who presents today for cellulitis of the left lower extremity. Patient states that he uses IV drugs regularly, a couple times a day but only injects in the arms. 20 days ago he had an area that was scraped and had subsequent significant bleeding. Dermabond was applied at that time and it healed well, the day or so after that he began to develop redness and swelling. He came to the ER and was seen and assessed by myself 12 days later on 04/18/2024 where he had evidence of cellulitis. He was started on cli ndamycin at that time. 450 mg every 6 hours for 7 days. He was also given a to go bottle which had a few doses in it as well. 2 days later the patient had a large blister that was about 7 or 8 cm x 4 cm. He came back to the ER when that popped, and was also prescribed clindamycin wash and mupirocin. Since then the patient states he has still been taking the antibiotics as directed. Despite t his the swelling and redness in the left lower extremity has worsened and increased to encompass the entire left lower extremity extending up towards the knee. No pain in the knee itself. He does admit to chills. No active fevers. He denies any IV drug use in the leg since the initial diagnosis. He has no other complaints at this time. He admits to mild pain and achiness in the leg. No chest pain or shortness of breath though. Bilateral edema in the lower extremities. Roughly +1 to +2 on the right, +3 on the left. Moderate erythema throughout the entirety of the left lower extremity from the knee and below. Chronic hemosiderin staining is also present. There is an active large blister that ruptured on the left calf, which demonstrates some granulomatous tissue with healing, but definitely also cellulitis and some purulent discharge in that area as well. Mild tenderness throughout. Dorsalis pedis and posterior tibial pulse are palpable. There is also some mild erythema extending towards the medial aspect of the knee with some firmness and swelling there as well. At this point with the patient's worsening cellulitis, the blisters have ruptured and the subsequent superinfection there as well, I do feel that the patient has demonstrated failure of outpatient antibiotic therapy. Patient does have mildly elevated heart rate but thankfully he is afebrile here. He did recently just take ibuprofen prior to arrival. I do feel that he would benefit from inpatient IV therapy with vancomycin for suspected MRSA. We will get blood cultures and blood work to evaluate current infectious status. Will give vancomycin dose here. I did discuss the patient's struggle that he does have with fentanyl use, and he has used methadone before the last time was about a year ago and his dose at that time was 120mg. Will rehydrate give antibiotics and plan for admission. Limited bedside ultrasound was performed and I did not see any evidence of superficial clot but I was not able to fully evaluate for deep vessel DVT. We will recommend formal ultrasonography tomorrow. Will contact the hospitalist for admission. At this time there is no subcutaneous crepitus to suggest neck Fash. No evidence of acute trauma necessitating emergent imaging. 7:51 PM Laboratory workup stable. Therapeutic indications remain no. Lactate normal suggesting no evidence of septic shock. Vancomycin has been administered. Discussed the case with the hospitalist Dr. Norris, he agrees with the assessment and plan. Will send a wound culture as well as the blood cultures that have already been sent. I have extensively reviewed the treatment plan with the patient. I have addressed all patient concerns at this time. I have also discussed the plan with the admitting physician and they agree with the current assessment and plan and have agreed to assume responsibility for the patient. All parties demonstrate verbal understanding and agreement with our assessment and plan at this time. The documentation in this chart was dictated using Jirafe dictation software. Please excuse any dictation errors. Quality:SDOH Health Related Social Needs: No Data to Display PFSH All Active Problems (Updated 04/26/24 @ 20:28 by René Inman DO) Heart murmur (Acute) Cellulitis of left leg (Acute) Cellulitis of left leg (Acute) Bleeding from varicose vein (Acute) Drug abuse and dependence (Acute) Sleep apnea with use of continuous positive airway pressure (CPAP) (Acute ~03/2018) Leg pain (Acute) Cellulitis of leg, left (Acute) Allergic dermatitis due to poison [place] (Acute) Cellulitis of shaft of penis (Acute) Viral URI (Acute) Back muscle spasm (Acute) Low back pain (Acute) Alcohol use (Acute) Anxiety (Acute) Attention deficit hyperactivity disorder (Acute) Undiagnosed cardiac murmurs (Acute) Depressive disorder (Acute) History of intravenous drug abuse (Acute 11/28/17) Opioid dependence (Acute) Medical History IV drug abuse Family History Mother Alcohol abuse Father Alcohol abuse Essential hypertension Depression Sister Asthma Brother No problems noted. Grandfather Hyperlipidemia Neoplasm Social History Smoking/Tobacco Use Status: Current every day Tobacco Type: cigarettes Tobacco: How many years used: 15 Smoking risk assessment performed?: Yes Alcohol Intake: current Alcohol Intake frequency: a few times a week Alcohol type: beer Drug use: Daily Substance use type: marijuana, crack/cocaine, heroin and other Details: Clinic for heroine with occassional use. Occassional use of cocaine. Do you feel safe at home: Yes Do you feel safe in your relationship?: Yes
[2024-04-26 19:27] LABS: Lactate 0.5 mmol/L (0.6-1.4)
[2024-04-26 19:33] LABS: Abs Immature Grans 0.02 10^3/uL (0.0-0.06); Absolute Basophil Count 0.03 10^3/uL (0.0-0.2); Absolute Eosinophil Count 0.28 10^3/uL (0.0-0.7); Absolute Lymphocyte Count 1.74 10^3/uL (1.2-3.4); Absolute Monocyte Count 0.54 10^3/uL (0.1-0.8); Absolute Neutrophil Count 4.39 10^3/uL (1.2-6.7); Basophils % 0.4 %; HCT 34.4 % (40.0-50.0); HGB 11.3 g/dL (13.5-17.5); Immature Grans % 0.3 %; Lymphocytes % 24.9 %; MCH 28.5 pg (27.0-33.0); MCHC 32.8 % (32.0-36.0); MCV 87 fL (80-95); MPV 9.5 fL (8.0-11.0); Monocytes % 7.7 %; Neutrophils % 62.7 %; Platelet Count 409 10^3/uL (130-400); RBC 3.97 10^6/uL (4.36-5.78); RDW 12.5 % (11.8-14.1); RDW-SD 39.8 fL
[2024-04-26 19:52] LABS: ALT 39 U/L (16-63); AST 32 U/L (15-37); Albumin 3.1 g/dL (3.4-5.0); Alkaline Phosphatase 68 U/L (46-116); Anion Gap 6.9 mmol/L (3-11); BUN 14 mg/dL (7-18); CO2 30.1 mmol/L (21.0-32.0); CREATININE 0.7 mg/dL (0.70-1.30); Chloride 100 mmol/L (98-107); Estimated GFR 121.71 (mL/min/1.73m2); Glucose 98 mg/dL (74-106); Sodium 137 mmol/L (136-145); Total Protein 8.3 g/dL (6.4-8.2)
[2024-04-26 20:00] LABS: Procalcitonin < 0.1 ng/mL
[2024-04-26] MEDS: Normal Saline 500 ML IV (20:06)
[2024-04-26] MEDS: Acetaminophen 500 MG TAB 1000 MG PO (20:06)
[2024-04-26] MEDS: VANCOMYCIN 1,500 MG in Normal Saline 500 ML 333.3333 MG IVPB (20:06)
--- NOTE | 2024-04-26 21:12 | NUR.NOTE ---
Pt was agreeable to be admitted to floor. Girlfriend showed up and continued to attempt to talk pt out of admission. It was explained to patient and the girlfriend that due to sever infection in his left leg, if not treated appropriately, he could become septic and worsening infection could result in loss of limb. Pt asked for something to eat, was informed nurse was waiting for the admitting physician to place diet order and could then get him something to eat. Pts girlfriend indicated that we could not tell him he could not eat and that we couldn't make him stay here. It was affirmed that we cannot hold him here, but that he has been accepted to the floor and therefore, the nurse needs to verify the diet order. The policy for visitors was also explained, as the girlfriend continued to suggest she was going to stay. She left for a bit of time, came back with [facility] and gave the pt food. Diet orders were in at that time and pt had a regular diet. GF continued to attempt to talk the pt into leaving. It was reported that she sent her ride away and was insisting she would be staying with the pt. The visitor policy was reiterated and pt was informed I would be bringing him upstairs. The girlfriend stated he doesn't have to go if he doesn't want to. I informed her this was correct, but he agreed to admission and needs to stay if he would like to prevent loss of limb, worsening infection or from sepsis. I informed her we would be bringing him upstairs and therefore she would need to leave. Pt refused admission and reported they would go to a different hospital. Pt was advised against this as informed him he is sick and really needs his antibiotics and inpatient care. Girlfrienevi refused to leave, and I explained it was because I was taking him upstairs. Pt replied he was not going upstairs. I informed him that they are ready for him, he is admitted. He indicated he was not staying and would go to another hospital. Pt pulled out his IV himself and signed out AMA. Risks explained to pt and they left, indicating they would go to [facility]. House sup, admitting physician, and ED attending were all notified of the situation and that the pt left AMA. Pt signature and witness obtained that pt understood the risks of leaving, including loss of limb and . Pt acknowledged and refused further intervention. Bimal Loco, PARASN, RN Nursing Note:
--- NOTE | 2024-04-28 10:08 | NUR.NOTE ---
Accessed chart to look up whether or not on antibiotic for wound culture result.Positive MRSA given to Dr. Inman. Nursing Note:
== END 2024-04-26 20:00 | disposition short-term general hospital (02) ==
PROVIDERS: Emergency Provider Student in an Organized Health Care Education/Training Program; PCP Family Medicine
DX: L03.116 Cellulitis of left lower limb (principal); R01.1 Cardiac murmur, unspecified; F19.10 Other psychoactive substance abuse, uncomplicated; F17.210 Nicotine dependence, cigarettes, uncomplicated; Z53.29 Procedure and treatment not carried out because of patient's decision for other reasons
CPT/HCPCS: 80053; 84145; 87040; 87077; 96365; 99285; 83605; 85025; 87070; 87186; 87205; J3370